=== PATIENT | female | born 1965 | race Caucasian/White ===

== ENCOUNTER → 2017-12-21 20:44 | Outpatient (REF) | payer BC, SELFPAY | LOC: LAB 20:44 | PROVIDERS: Visit Provider Nurse Practitioner Family ==

== ENCOUNTER → 2018-02-08 09:44 | Outpatient (CLI) | payer BC, SELFPAY ==
--- NOTE | 2018-02-08 09:57 | MM_ITS ---
MM Dig screening mamm BI w/CAD CAD Screening COMPARISON: Digital mammograms with CAD 01/27/2015 and 01/21/2014 INDICATION: There is no personal or family history of breast cancer TECHNIQUE: Standard CC and MLO images were obtained. R2 CAD reviewed. FINDINGS: The breasts are composed primarily of fat with minimal scattered fibro-glandular densities in each breast. There is a possible developing asymmetric density outer quadrant of the left breast at 3:00 position. Recommend the patient return for spot compression views in MLO and CC projection and possibly ultrasound as well. There are no suspicious microcalcifications. IMPRESSION: Fiber fatty parenchyma with possible developing asymmetric density left breast BI-RADS Category: 0 Need Additional Imaging Evaluation RECOMMENDED FOLLOW-UP: IMM - IMMEDIATE FOLLOW-UP RECOMMENDED (A letter has been sent to the patient regarding results of the study.)
== END ==
PROVIDERS: Family Provider Internal Medicine; PCP Internal Medicine; Visit Provider Nurse Practitioner Obstetrics & Gynecology
DX: Z12.31 Encounter for screening mammogram for malignant neoplasm of breast (principal)
CPT/HCPCS: 77067

== ENCOUNTER → 2018-03-01 13:35 | Outpatient (CLI) | payer BC, SELFPAY ==
--- NOTE | 2018-03-01 13:37 | MM_ITS ---
MM Dig mamm DX unilat LT CAD, US breast LT complete Ordering Physician: Mark Freeman MD Patient Age: 52 years Female COMPARISON: Bilateral mammogram studies from February 08 2018. January, January: March 2009 outside studies. INDICATION: Further evaluation of left breast density at upper-outer quadrant left breast TECHNIQUE: A series of spot views were obtained today including CC, rolled cc 90 degrees, & MLO. ======== DIAGNOSTIC MAMMOGRAM SPOT VIEWS - LEFT BREAST: In area of density at the upper-outer quadrant left breast been seen on studies dating back to 2008 & 2014. This area as seen today is slightly more apparent on recent study including today's spot views, versus older exams. However It does seem to dissipate on some of the spot views; and we see no corresponding area on ultrasound to further evaluate. Nonetheless I believe this does warrant close follow-up to determine if there is a early change here.,. This area of density Roughly measures 1 cm with somewhat with the vertebral margins. . Recommend follow-up left mammogram and left breast ultrasound 3-4months. Follow-up will be important in this patient. \===== ULTRASOUND LEFT BREAST with axilla survey . No prior studies available for comparison. Entire breast was surveyed including axillary survey. At 3:00 there is a small 8 mm times nearly 5 mm AP hyperechoic focus noted. This may reflect a small lipoma or area of fat necrosis possibly. This could possibly correspond with the density seen on mammography but is not definitive for such. I see no suspicious lesion to correspond with the mammogram density.. This area likely would be be difficult localized stereotactically to mammography given its minimal density and variable character. Since no worrisome focus seen with ultrasound, recommend follow-up. IMPRESSION: Small focal area of density at upper-outer quadrant left breast again noted. Prior studies dating back to 2008 & 2014 have shown similar but slightly less evident density in this same area... This density is only slightly more evident on today's spot views, but it does does dissipate from one spot view to another..No suspicious corresponding area on ultrasound identified only a possible hyperechoic likely focal benign fatty feature at 3:00 on ultrasound. At this point would suggest a follow-up left mammogram and ultrasound in 3-4 months to reevaluate this most likely benign feature BI-RADS Category: 3 likely Benign Finding Short Term Follow-up RECOMMENDED FOLLOW-UP: 3M -4MONTH FOLLOWUP ......... Diagnostic mammogram with ultrasound left breast 3-4 months ....... Follow-up will be important A letter has been sent to the patient regarding results of the study.)
== END ==
PROVIDERS: PCP Internal Medicine; Visit Provider Nurse Practitioner Obstetrics & Gynecology
DX: R92.2 Inconclusive mammogram (principal)
CPT/HCPCS: 76641; 77065

== ENCOUNTER → 2018-05-15 12:40 | Outpatient (CLI) | payer BC, SELFPAY ==
--- NOTE | 2018-05-15 12:44 | MM_ITS ---
MM Dig mamm DX unilat LT CAD, US breast LT complete INDICATION: Follow-up abnormal mammogram and ultrasound ORDERING PHYSICIAN: Mark Freeman MD PATIENT AGE: 52 years COMPARISON: 02/08/18 and 03/01/2018 TECHNIQUE: Standard images performed along with problem-solving views and left breast ultrasound FINDINGS: Asymmetric density is once again noted in the lateral aspect of the left breast does not completely dissipated on the spot compression views was some persistent asymmetric density on the rolled cc views.. Left breast ultrasound: 5 mm area of decreased echogenicity with posterior acoustical shadowing is present at 3:00 and may correspond to the mammographic abnormality and is mildly suspicious on ultrasound. There remains increased echogenicity at 2:00 which may be due to a small lipoma as previously described. IMPRESSION: Persistent asymmetric density in the lateral left breast now with a suspicious ultrasound abnormality noted at this area. Recommend ultrasound-guided mammotome biopsy BI-RADS Category: 4 Suspicious Abnormality-Biopsy Considered RECOMMENDED FOLLOW-UP: BIO - BIOPSY RECOMMENDED (A letter has been sent to the patient regarding results of the study.)
== END ==
PROVIDERS: Family Provider Internal Medicine; PCP Internal Medicine; Visit Provider Nurse Practitioner Obstetrics & Gynecology
DX: R92.2 Inconclusive mammogram (principal)
CPT/HCPCS: 76641; 77065

== ENCOUNTER → 2018-05-23 12:13 | Outpatient (CLI) | payer BC, SELFPAY ==
--- NOTE | 2018-05-23 12:16 | US_ITS ---
FNA w guidance HISTORY: Left breast nodule ITS.REASON: Persistent asymmetric density in the lateral left ORDERING PHYSICIAN: Mark Freeman MD PATIENT AGE: 52 years COMPARISON: 05/15/2018 TECHNIQUE: Following obtaining informed consent, using aseptic technique and local anesthesia with buffered lidocaine, fine-needle aspiration was performed of the nodule of interest using sonographic guidance. 3 passes were made into the nodule with a 21`-gauge needle. Specimen was given to cytology. The patient tolerated the procedure well without evidence of immediate complications and left the ultrasound suite in stable condition. CYTOLOGY:Negative for malignancy, findings suggesting fibrocystic change IMPRESSION: Ultrasound guided biopsy left breast shows benign findings. Recommend 6 month sonographic follow-up
== END ==
PROVIDERS: Family Provider Internal Medicine; PCP Internal Medicine; Visit Provider Nurse Practitioner Obstetrics & Gynecology
DX: N63.20 Unspecified lump in the left breast, unspecified quadrant (principal)
CPT/HCPCS: 10022; 76641

== ENCOUNTER → 2018-11-16 13:21 | Outpatient (CLI) | payer BC, SELFPAY ==
--- NOTE | 2018-11-16 13:39 | MM_ITS ---
MM Dig mamm DX unilat LT CAD, US breast LT complete Ordering Physician: Mark Freeman MD Patient Age: 53 years Female COMPARISON: Left mammogram studies available from May 2018 or February Similar features January 2015. January 2014 INDICATION: Short-term follow-up studies performed today to further evaluate small asymmetric area of density at the lateral, left left breast ========= DIAGNOSTIC LEFT MAMMOGRAM MLO and cc both views left breast. Minimal residual fibroglandular elements bilaterally . Lower-density breast overall. With moderate fatty replacement. Left breast again see the small asymmetric area of density at the lateral left breast. This remain stable since prior 2018 study.-It is actually slight less dense and than seen on the the February 2018 study left breast. Note interval FNA biopsy May 23, 2018 of this area However would again recommend bilateral follow-up to resume annual schedule 6 months to further confirm stability. ======= ULTRASOUND LEFT BREAST including axillary survey Ultrasound survey entire breast included additional axillary survey . No areas of concern. No solid or cystic mass. No architectural irregularity is appreciable. Axillary survey unremarkable I would note the patient had an FNA aspiration May 23, 2018 of the small vague hypoechoic nodule seen on ultrasound at 3 o'clock position .- The results were from that FNA negative for malignancy, revealed benign apocrine cells suggestive of fibrocystic change . The technologist identified no persistent nodule in this area today. IMPRESSION: 1.. Left mammogram again shows stable small area of focal density at the lateral left breast no change latter 2018 . ( It is actually very slight less dense & very slightly less evident than on February & May 2018 study,) However warrants six-month follow-up to better confirm stability with overall appearance. 2. Left breast ultrasound was negative & unremarkable today. . No areas of concern to correlate on today's study BI-RADS Category: 3 Probably Benign Finding . Short Term Follow-u To resume annual schedule RECOMMENDED FOLLOW-UP: 6M 6 MONTH FOLLOW-UP . resume annual bilateral mammogram schedule; with bilateral mammogram in 6 months May 2019 . Ultrasound left breast at that time suggested as well. A letter has been sent to the patient regarding results of the study.) .
== END ==
PROVIDERS: PCP Internal Medicine; Visit Provider Nurse Practitioner Obstetrics & Gynecology
DX: R92.8 Other abnormal and inconclusive findings on diagnostic imaging of breast (principal)
CPT/HCPCS: 76641; 77065

== ENCOUNTER → 2018-12-18 16:02 | Outpatient (CLI) | payer BC, SELFPAY ==
--- NOTE | 2018-12-18 16:09 | XR_ITS ---
XR hand RT min 3V HISTORY: ITS.REASON: PAIN/SWELLING IN RT 2ND 3RD,AND 4TH MCP JOINTS ORDERING PHYSICIAN: Baljinder Meier PATIENT AGE: 53 years COMPARISON: None FINDINGS: No fracture or dislocation. No lytic or blastic change. There is normal mineralization.. The joint spaces are well-preserved. No significant degenerative/arthritic changes. No erosive changes evident.. IMPRESSION: Negative, no acute finding
== END ==
PROVIDERS: PCP Internal Medicine; Visit Provider Internal Medicine
DX: M79.641 Pain in right hand (principal); M25.541 Pain in joints of right hand
CPT/HCPCS: 73130

== ENCOUNTER → 2019-05-23 08:22 | Outpatient (CLI) | payer BC, SELFPAY ==
--- NOTE | 2019-05-23 08:24 | MM_ITS ---
PROCEDURE: MM DIG SCREENING MAMM BI W/CAD Patient Age:53Y CLINICAL INDICATION: Routine Screening Mammogram 53-year-old but taking estrogen. Previous FNA left breast hypoechoic area 3 o'clock 05/23/2018 . Noncontributory family history. COMPARISON: DIG MAMMO BILAT SCREENING from 04/06/2009 DIG MAMMO BILAT SCREENING from 05/20/2010 [facility] DIGITAL MAMM-SCREEN BILATERAL from 08/24/2012 CADSC CAD MAMMOGRAPHY SCREENING from 01/21/2014 [facility] DIG MAMM-SCREEN CALIN from 01/27/2015 [facility] MM Dig screening mamm BI w/CAD from 02/08/2018 DXLT MM Dig mamm DX unilat LT CAD from 03/01/2018 BREASTLT US breast LT complete from 03/01/2018 DXLT MM Dig mamm DX unilat LT CAD from 05/15/2018 BREASTLT US breast LT complete from 05/15/2018 FNAWGUS FNA w guidance from 05/23/2018 DXLT MM Dig mamm DX unilat LT CAD from 11/16/2018 BREASTLT US breast LT complete from 11/16/2018 TECHNIQUE: Standard CC and MLO images were obtained. R2 CAD reviewed. Note additional CC view and MLO view performed FINDINGS: Minimal residual fibroglandular elements; overall low-density breast with generalized fatty replacement. Left breast the patient again demonstrates a small area of density at the lateral left breast which a similar size, stable since 2018. Of but less dense on 2015 mammogram. . Left breast: This focal irregular density laterally breast appears again seen and appears similar size density and appearance since 2018 but looking back this at the present since at least 2014 but had slowly developed on studies prior to that dating back to 2012,. However there was a a previous FNA in this area on 05/23/2018 to address a corresponding hypoechoic areas seen on 05/15/2018 ultrasound. This FNA was found to be negative (benign apical metaplasia) which would seem to match. Given this and stability of this density since since since 2018, follow-up would be suggested , However would recommend a 6-8 month follow-up with ultrasound additionally confirm stability and so as to again evaluate on ultrasound. Right breast: No new areas of concern bilateral follow-up 1 year recommended IMPRESSION: Left breast: Stable appearing focal density lateral left breast-shows no appreciable change since 2018. A prior 05/23/2018.ultrasound-guided FNA here was benign. However this patient on estrogen and note this density has slowly developed and slowly progressed on studies over several years prior to 2018. (Likely reflecting estrogen effect), thus to be be cautious would suggest a 6-8 month follow-up with left breast ultrasound and left mammogram. Right breast. Stable right breast. . No new areas of concern on the right. Follow-up 1 year recommended on right BI-RAD Category: 3 Probably Benign Finding Short Term Follow-up left breast FOLLOW-UP: Six-month follow-up left breast ultrasound and mammogram recommended (A letter has been sent to the patient regarding results of the study.) Low the Dictated by: Lawrence Alcala MD 05/24/2019 10:04 Electronically signed by Lawrence Alcala MD in [place] 05/28/2019 11:08
== END ==
PROVIDERS: PCP Internal Medicine; Visit Provider Nurse Practitioner Obstetrics & Gynecology
DX: Z12.31 Encounter for screening mammogram for malignant neoplasm of breast (principal)
CPT/HCPCS: 77067

== ENCOUNTER → 2019-11-18 12:42 | Outpatient (CLI) | payer BC, SELFPAY ==
--- NOTE | 2019-11-18 12:42 | MM_ITS ---
PROCEDURE: MM DIG MAMM DX UNILAT LT CAD Digital Breast Tomosynthesis Included CLINICAL INDICATION: abnormal xmg Follow-up abnormal mammogram COMPARISON: [facility] DIGITAL MAMM-SCREEN BILATERAL from 08/24/2012 [facility] DIG MAMM-SCREEN CALIN from 01/27/2015 DXLT MM Dig mamm DX unilat LT CAD from 05/15/2018 BREASTLT US breast LT complete from 11/16/2018 DXLT MM Dig mamm DX unilat LT CAD from 11/16/2018 MM DIG SCREENING MAMM BI W/CAD from 05/23/2019 US BREAST LT COMPLETE from 11/18/2019 TECHNIQUE: Standard CC and MLO images and 3D Tomosynthesis was obtained. R2 CAD reviewed. FINDINGS: There is average fibroglandular tissue. No malignant appearing mass or malignant-appearing microcalcification. There is a stable asymmetric density in the upper outer left breast. A benign-appearing nodular opacity measuring 5 mm is present in the lower outer left breast. This may represent a cyst as noted on the ultrasound. Left breast ultrasound: There is a 7 x 3 x 5 mm cyst at 4 o'clock which may correspond to the mammographic abnormality. No malignant appearing mass evident. Recommend continued screening mammogram of both breast and May 2020 IMPRESSION: BI-RAD Category: 2 Benign Finding(s) FOLLOW-UP: 6M 6Month Follow-up (A letter has been sent to the patient regarding results of the study.) Dictated by: Osmin Mccain MD 11/25/2019 09:48 Electronically signed by Osmin Mccain MD in [place] 11/25/2019 09:48
== END ==
PROVIDERS: PCP Internal Medicine; Visit Provider Nurse Practitioner Obstetrics & Gynecology
DX: R92.8 Other abnormal and inconclusive findings on diagnostic imaging of breast (principal)
CPT/HCPCS: 76641; 77061; 77065; G0279

== ENCOUNTER → 2019-12-26 08:27 | Outpatient (CLI) | payer BC, SELFPAY ==
[2019-12-26 09:03] LABS: Basophils % 0.2 % (0.1-2.0); Eosinophils # 0.1 K/mm3 (0.0-0.4); Eosinophils % 1.8 % (0.1-12.0); Hematocrit 41.3 % (37.0-47.0); Hemoglobin 13.5 g/dL (12.2-16.2); Lymphocytes # 1.5 K/mm3 (0.7-4.5); Lymphocytes % 24.8 % (10-50); Mean Corpuscular HGB Conc 32.6 g/dL (31.8-35.4); Mean Corpuscular Hemoglobin 29.6 pg (27.0-31.2); Mean Corpuscular Volume 90.6 fl (81-99); Mean Platelet Volume 7.4 fl (7.4-10.4); Monocytes # 0.4 K/mm3 (0.1-1.0); Neutrophils # 3.9 K/mm3 (1.8-7.8); Neutrophils % 66.2 % (37.0-80.0); Platelet Count 295 K/mm3 (142-424); Red Blood Count 4.56 M/mm3 (4.20-5.40); Red Cell Distribution Width 12.9 % (11.5-17.5); White Blood Count 5.9 K/mm3 (4.8-10.8)
[2019-12-26 10:03] LABS: Erythrocyte Sedimentation Rate 10 mm/hr (0-30)
[2019-12-26 10:08] LABS: Alanine Aminotransferase 13 U/L (12-78); Albumin Level 4.5 g/dl (3.5-5.0); Albumin/Globulin Ratio 1.8 (1.1-1.8); Alkaline Phosphatase 50 U/L (38-126); Anion Gap 8.7 mEq/L (5-15); Aspartate Amino Transferase 21 U/L (14-36); Bilirubin,Total 0.4 mg/dl (0.2-1.3); Blood Urea Nitrogen 13 mg/dl (7-17); Calcium 9.4 mg/dl (8.4-10.2); Carbon Dioxide 29 mmol/L (22.0-30.0); Chloride 101 mmol/L (98-107); Estimated Glomerular Filt Rate 128 ml/min (>60); GFR (African American) 155 ML/MIN (>60); Globulin 2.5 g/dL (1.3-3.2); Glucose 78 mg/dl (74-100); Potassium 3.7 mmoL/L (3.5-5.1); Sodium 135 mmol/L (136-145)
[2019-12-26 10:14] LABS: C-Reactive Protein 0.6 mg/L (0-4)
== END ==
PROVIDERS: Visit Provider Internal Medicine Rheumatology
DX: M25.50 Pain in unspecified joint (principal); R76.8 Other specified abnormal immunological findings in serum
CPT/HCPCS: 36415; 80053; 85025; 85651; 86140

== ENCOUNTER → 2020-05-19 10:01 | Outpatient (CLI) | payer BC, SELFPAY ==
--- NOTE | 2020-05-19 10:09 | MM_ITS ---
PROCEDURE: MM DIG SCREENING MAMM BI W/CAD Referring Doctor: Mark Freeman Patient Age:54Y CLINICAL INDICATION: SCREENING takes estrogen.. No new complaints. Noncontributory family history. Previous percutaneous biopsy left breast I believe May 2018 COMPARISON: MG DMSB DIGITAL MAMM-SCREEN BILATERAL from 08/24/2012 MG CADSC CAD MAMMOGRAPHY SCREENING from 01/21/2014 MG DMSB DIG MAMM-SCREEN CALIN from 01/27/2015 MG [facility] MM Dig screening mamm BI w/CAD from 02/08/2018 MG DXLT MM Dig mamm DX unilat LT CAD from 03/01/2018 US BREASTLT US breast LT complete from 03/01/2018 MG DXLT MM Dig mamm DX unilat LT CAD from 05/15/2018 US BREASTLT US breast LT complete from 05/15/2018 US FNAWGUS FNA w guidance from 05/23/2018 MG DXLT MM Dig mamm DX unilat LT CAD from 11/16/2018 US BREASTLT US breast LT complete from 11/16/2018 MG MM DIG SCREENING MAMM BI W/CAD from 05/23/2019 MG MM DIG MAMM DX UNILAT LT CAD from 11/18/2019 US US BREAST LT COMPLETE from 11/18/2019 TECHNIQUE: Standard CC and MLO images were obtained. R2 CAD reviewed. Bilateral digital breast tomosynthesis included. FINDINGS: Minimal residual fibroglandular elements bilaterally. Left breast. Stable small focal density at the lateral left breast has been present since least 2017 and even present back on 2014 studies. It there was a ultrasound-guided biopsy of this area which was benign revealing apical metaplasia and fibrocystic changes but May 2018 changed appreciably during these this time. But warrants close continued follow-up but bilateral mammogram 1 year be adequate at this point given its stability since 2018. Right breast no new areas of significant concern. Suspect ductal prominence accounts for the minimal nodularity retroareolar region MLO view stable, as are small areas of density at the lateral breast on CC view these areas adequate the 2 stable when compared back multiple previous 2018, 2017, 2015 mammogram IMPRESSION: No significant appearing changes since studies dating back to 2018. Left breast.- Stable small area of nodularity lateral left breast unchanged since it was aspirated or biopsied in 2018. The stable mild asymmetry but comparison is made to numerous previous studies-no significant new findings Bilateral follow-up 1 year would be recommended-and should be encouraged/emphasized to confirm ongoing stability of areas noted above BI-RAD Category: 2 Benign Finding(s) FOLLOW-UP: 1YR 1 Year Follow-up (A letter has been sent to the patient regarding results of the study.) Dictated by: Lawrence Alcala MD 05/22/2020 08:28 Lawrence Alcala MD in [place] 05/22/2020 08:28
== END ==
PROVIDERS: PCP Internal Medicine; Visit Provider Nurse Practitioner Obstetrics & Gynecology
DX: Z12.31 Encounter for screening mammogram for malignant neoplasm of breast (principal)
CPT/HCPCS: 77063; 77067

== ENCOUNTER → 2020-09-30 11:39 | Outpatient (CLI) | payer BC, SELFPAY ==
[2020-09-30 12:29] LABS: Chloride 105 mmol/L (98-107); Erythrocyte Sedimentation Rate 5 mm/hr (0-30); Potassium 4.4 mmoL/L (3.5-5.1); Sodium 140 mmol/L (136-145)
[2020-09-30 12:32] LABS: Alanine Aminotransferase 20 U/L (12-78); Albumin Level 4.9 g/dl (3.5-5.0); Albumin/Globulin Ratio 1.7 (1.1-1.8); Alkaline Phosphatase 67 U/L (38-126); Anion Gap 12.4 mEq/L (5-15); Aspartate Amino Transferase 31 U/L (14-36); Bilirubin,Total 0.8 mg/dl (0.2-1.3); Blood Urea Nitrogen 18 mg/dl (7-17); Carbon Dioxide 27 mmol/L (22.0-30.0); Cholesterol 244 mg/dl (140-200); Estimated Glomerular Filt Rate 103 ml/min (>60); GFR (African American) 125 ML/MIN (>60); Globulin 2.9 g/dL (1.3-3.2); Total Protein,Serum 7.8 g/dl (6.3-8.2); Triglycerides 128 mg/dl (30-150); VLDL Cholesterol 26 mg/dL (0-40)
[2020-09-30 12:33] LABS: Calcium 9.9 mg/dl (8.4-10.2); Chol/HDL Ratio 3.5 (1-3.5); Glucose 98 mg/dl (74-100); HDL Cholesterol 70 mg/dl (40-60)
[2020-09-30 12:39] LABS: C-Reactive Protein 2.3 mg/L (0-4)
[2020-09-30 12:44] LABS: Direct LDL Cholesterol 139.84 mg/dL (100-129)
[2020-09-30 13:03] LABS: Thyroid Stimulating Hormone 0.61 uIU/mL (0.465-4.68)
[2020-10-01 09:20] LABS: Basophils % 0.6 % (0.1-2.0); Eosinophils # 0.1 K/mm3 (0.0-0.4); Hematocrit 46.1 % (37.0-47.0); Hemoglobin 14.9 g/dL (12.2-16.2); Lymphocytes # 1.5 K/mm3 (0.7-4.5); Lymphocytes % 21.8 % (10-50); Mean Corpuscular HGB Conc 32.3 g/dL (31.8-35.4); Mean Corpuscular Hemoglobin 30.6 pg (27.0-31.2); Mean Corpuscular Volume 94.7 fl (81-99); Mean Platelet Volume 8.4 fl (7.4-10.4); Monocytes # 0.4 K/mm3 (0.1-1.0); Monocytes % 6.4 % (1.7-9.3); Neutrophils # 4.7 K/mm3 (1.8-7.8); Neutrophils % 70.2 % (37.0-80.0); Platelet Count 291 K/mm3 (142-424); Red Blood Count 4.87 M/mm3 (4.20-5.40); Red Cell Distribution Width 13.5 % (11.5-17.5); White Blood Count 6.7 K/mm3 (4.8-10.8)
== END ==
PROVIDERS: Visit Provider Internal Medicine
DX: M15.0 Primary generalized (osteo)arthritis (principal); K58.1 Irritable bowel syndrome with constipation; E78.5 Hyperlipidemia, unspecified; J30.9 Allergic rhinitis, unspecified; D64.9 Anemia, unspecified; E66.8 Other obesity; K21.9 Gastro-esophageal reflux disease without esophagitis
CPT/HCPCS: 36415; 80053; 80061; 84443; 85025; 85651; 86140

== ENCOUNTER → 2021-04-30 15:57 | Outpatient (CLI) | payer BC, SELFPAY | PROVIDERS: Visit Provider Nurse Practitioner | DX: Z20.822 Contact with and (suspected) exposure to COVID-19 (principal) | CPT/HCPCS: C9803; U0003; U0005 ==

== ENCOUNTER → 2021-05-28 15:41 | Outpatient (CLI) | payer BC, SELFPAY ==
--- NOTE | 2021-05-28 15:41 | MM_ITS ---
PROCEDURE INFORMATION: Exam: MG Bilateral Screening 3D Mammography Exam date and time: 05/28/2021 3:41 PM Age: 55 years old Clinical indication: screening mammogram TECHNIQUE: Imaging protocol: Bilateral screening tomosynthesis and 2D mammography including computer-aided detection (CAD) when performed. COMPARISON: 1. MG MM DIG SCREENING MAMM BI W/CAD 05/19/2020 10:11 AM 2. MG MM DIG MAMM DX UNILAT LT CAD 11/18/2019 1:10 PM 3. MG MM DIG SCREENING MAMM BI W/CAD 05/23/2019 8:36 AM 4. MG DXLT MM Dig mamm DX unilat LT CAD 11/16/2018 1:57 PM FINDINGS: MAMMOGRAPHY: Breast composition: There are scattered areas of fibroglandular density. Mass: AStable benign-appearing subcentimeter nodules are present in the bilateral breasts. No new or morphologically suspicious nodule has developed to suggest malignancy. Architectural distortion: No new or suspicious architectural distortion. Calcifications: No new or suspicious calcifications are present Asymmetric density: No new or suspicious asymmetric density is present Skin thickening: None. Axillary adenopathy: None. IMPRESSION: No mammographic evidence of malignancy. Recommend annual screening mammography unless otherwise clinically indicated. ASSESSMENT: BI-RADS category 2: Benign
== END ==
PROVIDERS: PCP Internal Medicine; Visit Provider Nurse Practitioner Obstetrics & Gynecology
DX: Z12.31 Encounter for screening mammogram for malignant neoplasm of breast (principal)
CPT/HCPCS: 77063; 77067

== ENCOUNTER → 2021-08-23 12:50 | Outpatient (CLI) | payer BC, SELFPAY ==
--- NOTE | 2021-08-23 12:56 | XR_ITS ---
FINAL REPORT CLINICAL HISTORY: pain, bilateral foot pain FINDINGS: LEFT FOOT Three views of the left foot demonstrate no acute fracture or dislocation. There are mild degenerative changes. The soft tissues are unremarkable. IMPRESSION: Mild degenerative change. Reviewed, Interpreted and Dictated by Carson Parada III, MD Transcribed by Ariadna Barros Authenticated by Carson Parada III, MD on 08/23/2021 02:46:[address] [facility]
--- NOTE | 2021-08-23 12:56 | XR_ITS ---
FINAL REPORT CLINICAL HISTORY: pain, bilateral foot pain FINDINGS: RIGHT FOOT Three views of the right foot demonstrate no dislocation. There are postoperative changes of the 1st metatarsal. There is a presumed chronic fracture of the 5th metatarsal. There are mild degenerative changes. The soft tissues are unremarkable. IMPRESSION: Mild degenerative changes. Presumed chronic fracture of the 5th metatarsal. Reviewed, Interpreted and Dictated by Carson Parada III, MD Transcribed by Ariadna Barros Authenticated by Carson Parada III, MD on 08/23/2021 02:46:38 PM [facility]
== END ==
PROVIDERS: PCP Internal Medicine; Visit Provider Podiatrist
DX: M79.672 Pain in left foot (principal); M79.671 Pain in right foot
CPT/HCPCS: 73630

== ENCOUNTER → 2021-08-31 15:25 | Outpatient (CLI) | payer BC, SELFPAY ==
[2021-08-31 17:26] LABS: Blood Urea Nitrogen 17 mg/dl (7-17); Estimated Glomerular Filt Rate 103 ml/min (>60); GFR (African American) 125 ML/MIN (>60)
== END ==
PROVIDERS: PCP Internal Medicine; Visit Provider Podiatrist
DX: Z01.812 Encounter for preprocedural laboratory examination (principal)
CPT/HCPCS: 36415; 82565; 84520

== ENCOUNTER → 2021-09-03 08:32 | Outpatient (CLI) | payer BC, SELFPAY ==
--- NOTE | 2021-09-03 08:55 | MR_ITS ---
FINAL REPORT CLINICAL HISTORY: LEFT FOOT PAIN, STRESS FX 19ML PROHANCE LOT:[id number] EXP: FINDINGS: Multiplanar MR imaging of the left foot was performed with and without contrast. Mild degenerative changes are seen involving the midfoot. There is mild bone marrow edema in the middle cuneiform and proximal second metatarsal, favor reactive. There is a small osteochondral lesion in the distal mid cuneiform. No well-defined fracture is identified. There is a mass in the proximal first proximal phalanx measuring 8 mm, favor a cyst or enchondroma. There is no abnormal contrast enhancement. IMPRESSION: Degenerative changes without a well-defined fracture. No evidence of abnormal contrast enhancement. Reviewed, Interpreted and Dictated by Carson Parada III, MD Transcribed by Tara Rangel Authenticated by Carson Parada III, MD on 09/03/2021 10:59:[address] [facility]
== END ==
PROVIDERS: PCP Internal Medicine; Visit Provider Podiatrist
DX: M79.672 Pain in left foot (principal); M84.375A Stress fracture, left foot, initial encounter for fracture
CPT/HCPCS: 73720; A9576

== ENCOUNTER → 2021-09-07 16:03 | Outpatient (CLI) | payer BC, SELFPAY | PROVIDERS: PCP Internal Medicine; Visit Provider Nurse Practitioner | DX: U07.1 COVID-19 (principal) | CPT/HCPCS: C9803; U0003; U0005 ==

== ENCOUNTER → 2021-09-23 09:18 | Outpatient (CLI) | payer BC, SELFPAY ==
--- NOTE | 2021-09-23 09:18 | XR_ITS ---
FINAL REPORT TECHNIQUE: Bone mineral density was calculated of the lumbar spine and hip. CLINICAL HISTORY: . screening, hx fracture, upcoming bunion repair FINDINGS: Using L1-4, the bone mineral density of the spine is 1.107 g/cm2, corresponding to T-score of 0.5. Using the left hip, the bone mineral density of the femoral neck is 0.830 g/cm2, corresponding to a T-score of -0.2. IMPRESSION: Normal bone mineral density of the lumbar spine and left hip. Reviewed, Interpreted and Dictated by Carson Parada III, MD Transcribed by Ariadna Barros Authenticated by Carson Parada III, MD on 09/23/2021 11:25:[address] [facility]
[2021-09-23 10:36] LABS: Basophils # 0.1 K/mm3 (0-0.2); Basophils % 1.2 % (0.1-2.0); Eosinophils # 0.1 K/mm3 (0.0-0.4); Eosinophils % 1.1 % (0.1-12.0); Hematocrit 42.1 % (37.0-47.0); Hemoglobin 13.9 g/dL (12.2-16.2); Lymphocytes # 1.6 K/mm3 (0.7-4.5); Lymphocytes % 25.3 % (10-50); Mean Corpuscular HGB Conc 32.9 g/dL (31.8-35.4); Mean Corpuscular Hemoglobin 30.5 pg (27.0-31.2); Mean Corpuscular Volume 92.7 fl (81-99); Mean Platelet Volume 7.7 fl (7.4-10.4); Monocytes # 0.4 K/mm3 (0.1-1.0); Monocytes % 5.3 % (1.7-9.3); Neutrophils # 4.4 K/mm3 (1.8-7.8); Neutrophils % 67.2 % (37.0-80.0); Platelet Count 321 K/mm3 (142-424); Red Blood Count 4.55 M/mm3 (4.20-5.40); Red Cell Distribution Width 13.1 % (11.5-17.5); White Blood Count 6.5 K/mm3 (4.8-10.8)
[2021-09-23 12:26] LABS: Erythrocyte Sedimentation Rate 11 mm/hr (0-30)
[2021-09-23 14:52] LABS: Alanine Aminotransferase 22 U/L (12-78); Albumin Level 4.6 g/dl (3.5-5.0); Albumin/Globulin Ratio 2.1 (1.1-1.8); Alkaline Phosphatase 57 U/L (38-126); Anion Gap 11.3 mEq/L (5-15); Aspartate Amino Transferase 31 U/L (14-36); Bilirubin,Total 0.9 mg/dl (0.2-1.3); Blood Urea Nitrogen 17 mg/dl (7-17); Calcium 8.8 mg/dl (8.4-10.2); Carbon Dioxide 27 mmol/L (22.0-30.0); Chloride 104 mmol/L (98-107); Estimated Glomerular Filt Rate 127 ml/min (>60); GFR (African American) 154 ML/MIN (>60); Globulin 2.2 g/dL (1.3-3.2); Glucose 95 mg/dl (74-100); Potassium 4.3 mmoL/L (3.5-5.1); Sodium 138 mmol/L (136-145); Total Protein,Serum 6.8 g/dl (6.3-8.2)
[2021-09-23 15:00] LABS: C-Reactive Protein 1.7 mg/L (0-4)
[2021-09-23 15:02] LABS: Intact Parathyroid Hormone 67.7 pg/mL (7.5-53.5)
[2021-09-30 19:45] LABS: 1,25 Dihydroxy Vitamin D 60 pg/mL (.); 1,25-Dihydroxy, Vitamin D-2 <10 pg/mL (.); 1,25-Dihydroxy, Vitamin D-3 56 pg/mL (.)
== END ==
PROVIDERS: PCP Internal Medicine; Visit Provider Podiatrist
DX: M85.89 Other specified disorders of bone density and structure, multiple sites (principal); L02.619 Cutaneous abscess of unspecified foot; L03.119 Cellulitis of unspecified part of limb; Z98.890 Other specified postprocedural states
CPT/HCPCS: 77080; 80053; 82652; 83970; 85025; 85651; 86140

== ENCOUNTER 2021-10-21 15:48 | Emergency (ER) | payer BC, SELFPAY ==
[2021-10-21 15:55] VITALS: BP 142/63; PULSE 97; RESP 20; TEMP 36.7; O2SAT 97; BMI 30.5
--- NOTE | 2021-10-21 16:08 | HMH.EDUTC ---
[facility] [place] Clinical Impression: Strep throat Disposition: Home, Self-Care Condition on Discharge: Good Instructions: DI for Strep Throat, Strep Throat, Azithromycin Additional Instructions: *Monitor Temp, Over the counter Motrin or Tylenol as directed/as needed Tylenol every 4 hours and Motrin every 6 hours (as long as your family doctor has told you that you can take it) for fever or pain. and straight to ER if unable to lower temp less than 101.0 after medication given *Warm salt water gargles may help to soothe the throat *Throat Lozenges *Warm fluids like tea with honey may help to soothe the throat *Sleep elevated *Humidifier/Vaporizer *If you did not take Penicillin shot or was unable to, start taking antibiotic immediately and make sure that you take it for the FULL length of time although you should start to feel better in 24-48 hours *change toothbrush and toothpaste 24-48 hours after starting to take antibiotics so you do not reinfect yourself Monitor Temp. Tylenol and/or Ibuprofen as needed. ER if fever is no less than 101 despite alternating Tylenol and Ibuprofen * Encourage fluids, water, Gatorade, powerade, pedialyte if /toddler/or child *Cold fluids, popsicles and ice cream may feel good on his throat Follow up IMMEDIATELY for new or worsening symptoms or no Noticeable improvement over the next 48-72 hours. 911 for difficulty breathing or swallowing Prescriptions: Azithromycin [Z-Joseph 250mg Tab] 250 mg PO DIRECTED #6 tab Transmission Status: Pending to [id number] Referrals: Baljinder Meier [Primary Care Provider] - As needed Time of Disposition: 16:15 Medical Decision Making - Forrest Inquiry Pt receiving controlled substance: No Forrest was queried for this patient: No Vital Signs: 10/21/21 15:55 Temperature 98.1 F Temperature Source Oral Pulse Rate [Right Brachial] 97 H Respiratory Rate 20 Blood Pressure [Right Arm] 142/63 H Blood Pressure Mean [Right Arm] 89 Blood Pressure Source [Right Arm] Automatic Cuff Blood Pressure Position [Right Arm] Sitting 02 Sat by Pulse Oximetry 97 Oxygen Delivery Method Room Air - Lab Data Lab results reviewed: Yes: I reviewed the patient's lab results. [facility] [place] - General Stated complaint: sore throat Time Seen by Provider: 10/21/21 16:08 Mode of Arrival: Ambulatory Source of Information: Patient Limitations: No Limitations Description of Symptoms (Recalled from Triage Doc. 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 States that today she was still feeling bad and having scratchy throat so she came in to get checked out - Related Data Home Medications Medication Instructions Recorded Confirmed fluticasone propionate 50 2 spray INTRANASAL DAILY 10/15/20 10/04/21 mcg/actuation nasal spray,suspension montelukast 10 mg tablet 10 mg PO DAILY 10/15/20 10/04/21 meloxicam 7.5 mg tablet 7.5 mg PO DAILY 08/23/21 10/04/21 omeprazole 20 mg capsule,delayed 20 mg PO DAILY 08/23/21 10/04/21 release duloxetine 30 mg capsule,delayed 30 mg PO DAILY 10/04/21 10/04/21 release prucalopride 2 mg tablet 2 mg PO tab 10/04/21 10/04/21 Previous Rx's Medication Instructions Recorded estradiol 0.1 mg/24 hr semiweekly See Rx Instructions .ROUTE 11/23/20 transdermal patch .COMPLEX #24 patch Azithromycin [Z-Joseph 250mg Tab] 250 mg PO DIRECTED #6 tab 10/21/21 Allergies Allergy/AdvReac Type Severity Reaction Status Date / Time acetaminophen [From [facility]] Allergy Mild Verified 10/04/21 08:06 hydrocodone [From [facility]] Allergy Mild Verified 10/04/21 08:06 latex [L
[2021-10-21 16:10] LABS: UTC Strep Screen (Rapid) Positive (Negative)
[2021-10-21 16:18] VITALS: BP 142/63; PULSE 97; RESP 20; TEMP 36.7; O2SAT 97
== END 2021-10-21 16:22 | disposition home or self-care (01) ==
PROVIDERS: Emergency Provider Nurse Practitioner; PCP Internal Medicine
DX: J02.0 Streptococcal pharyngitis (principal); B95.0 Streptococcus, group A, as the cause of diseases classified elsewhere; K21.9 Gastro-esophageal reflux disease without esophagitis; F41.9 Anxiety disorder, unspecified; Z79.51 Long term (current) use of inhaled steroids; Z79.890 Hormone replacement therapy; Z79.899 Other long term (current) drug therapy; Z88.0 Allergy status to penicillin; Z88.5 Allergy status to narcotic agent; Z88.6 Allergy status to analgesic agent; Z91.040 Latex allergy status; Z82.49 Family history of ischemic heart disease and other diseases of the circulatory system; Z83.3 Family history of diabetes mellitus; Z80.9 Family history of malignant neoplasm, unspecified
CPT/HCPCS: 87880; 99213; G0463

== ENCOUNTER → 2021-12-28 09:07 | Outpatient (CLI) | payer BC, SELFPAY ==
--- NOTE | 2021-12-28 09:14 | XR_ITS ---
FINAL REPORT CLINICAL HISTORY: preop testing - foot surgery/bunionectomy FINDINGS: Two views of the chest were obtained. The heart size and pulmonary vascularity are within normal limits. The mediastinum is normal. No acute pulmonary abnormality is identified. There is no pneumothorax. The bony thorax is intact. IMPRESSION: No active cardiopulmonary disease. Reviewed, Interpreted and Dictated by Carson Parada III, MD Transcribed by Robyn Roland Authenticated by Carson Parada III, MD on 12/28/2021 10:31:29 AM [facility]
--- NOTE | 2021-12-28 09:48 | ECG_ITS ---
APPROVED REPORT Exam: Resting ECG HR:80 bpm ECG Measurements Heart Rate 80 AXES CA 132 P 59 QRSd 103 QRS 66 QT 370 T 37 QTc 405 Conclusion SINUS RHYTHM NORMAL ECG UNCONFIRMED REPORT Electronically signed by : Rogerio Correa MD 12/28/2021 21:24:16
[2021-12-28 10:40] LABS: Basophils # 0.1 K/mm3 (0-0.2); Basophils % 1.2 % (0.1-2.0); Eosinophils # 0.1 K/mm3 (0.0-0.4); Hematocrit 44.2 % (37.0-47.0); Hemoglobin 14.3 g/dL (12.2-16.2); Lymphocytes # 1.3 K/mm3 (0.7-4.5); Lymphocytes % 21.3 % (10-50); Mean Corpuscular HGB Conc 32.3 g/dL (31.8-35.4); Mean Corpuscular Hemoglobin 30.6 pg (27.0-31.2); Mean Corpuscular Volume 94.7 fl (81-99); Mean Platelet Volume 8.3 fl (7.4-10.4); Monocytes # 0.3 K/mm3 (0.1-1.0); Monocytes % 5.1 % (1.7-9.3); Neutrophils # 4.3 K/mm3 (1.8-7.8); Neutrophils % 71.4 % (37.0-80.0); Platelet Count 272 K/mm3 (142-424); Red Blood Count 4.66 M/mm3 (4.20-5.40); Red Cell Distribution Width 13.2 % (11.5-17.5)
[2021-12-28 11:30] LABS: Alanine Aminotransferase 16 U/L (12-78); Albumin Level 4.4 g/dl (3.5-5.0); Albumin/Globulin Ratio 1.8 (1.1-1.8); Alkaline Phosphatase 74 U/L (38-126); Aspartate Amino Transferase 30 U/L (14-36); Bilirubin,Total 0.7 mg/dl (0.2-1.3); Blood Urea Nitrogen 9 mg/dl (7-17); Calcium 9.1 mg/dl (8.4-10.2); Carbon Dioxide 24 mmol/L (22.0-30.0); Chloride 106 mmol/L (98-107); Estimated Glomerular Filt Rate 127 ml/min (>60); GFR (African American) 154 ML/MIN (>60); Globulin 2.4 g/dL (1.3-3.2); Glucose 99 mg/dl (74-100); Sodium 139 mmol/L (136-145); Total Protein,Serum 6.8 g/dl (6.3-8.2)
[2021-12-28 11:45] LABS: 25-OH Vitamin D, Total 29.3 ng/mL (30-100)
== END ==
PROVIDERS: PCP Internal Medicine; Visit Provider Podiatrist
DX: Z01.818 Encounter for other preprocedural examination (principal); Z11.52 Encounter for screening for COVID-19
CPT/HCPCS: 36415; 71046; 80053; 82306; 85025; 93005; C9803; U0003; U0005

== ENCOUNTER → 2022-01-10 09:11 | Outpatient (CLI) | payer BC, SELFPAY | PROVIDERS: PCP Internal Medicine; Visit Provider Podiatrist | DX: Z01.812 Encounter for preprocedural laboratory examination (principal); Z20.822 Contact with and (suspected) exposure to COVID-19 ==

== ENCOUNTER → 2022-01-11 10:13 | Outpatient (CLI) | payer BC, SELFPAY | PROVIDERS: Visit Provider Podiatrist | DX: Z01.812 Encounter for preprocedural laboratory examination (principal); Z20.822 Contact with and (suspected) exposure to COVID-19 | CPT/HCPCS: C9803; U0003; U0005 ==

== ENCOUNTER 2022-01-12 09:05 | Day surgery (SDC) | payer BC, SELFPAY ==
[2022-01-11 12:18] VITALS: BMI 29.2
[2022-01-12] VITALS (10 sets, daily range): BP systolic 97–121; BP diastolic 53–92; PULSE 87–98; RESP 15–18; TEMP 36.3–43; O2SAT 93–100
--- NOTE | 2022-01-12 10:50 | HMH.OPNOTE ---
Date of procedure: 01/12/22 Pre-op Diagnosis:: 1. Acquired hallux valgus of left foot 2. Left foot pain 3. Acquired hammertoe of left foot 4. Metatarsalgia of left foot 5. Bone cyst of foot 6. History left metatarsal stress fracture 7. Parathyroid hormone excess 8. Overweight (BMI 25.0-29.9) Post-op Diagnosis:: Same Procedure performed:: 1. Left foot bunionectomy (distal metatarsal osteotomy) 2. Left 2nd metatarsal osteotomy 3. Left HT repair with MPJ/IP capsulotomy 4. Left soft tissue reconstruction angular toe deformity 5. Left foot bone biospy 6. Left foot curettage and bone grafting cyst 7. Application of graft (amniotic) Surgeon:: Demetria Shah DPM EDITOR NEWSPAPER:: Dmitriy Thomas Anesthesia: regional (left popliteal nerve block), LMA Estimated blood loss (mL): 15 Clinical Note:: Patient is a 56-year-old female who presents for continued/worsening pain to the left foot. She has a history of right foot bunion surgery. Patient has a history of scar contracture with vitamin D deficiency. The patient has tried modification of shoe gear, taping, strapping, inserts, ice, elevation, NSAIDs. After a long discussion with the patient in regards to the conservative versus surgical treatment for the bunion and toes deformities, the patient has elected to proceed with surgery because they have failed conservative treatment and continue to have pain and worsening symptoms affecting daily activities. The patient has been instructed on the planned procedure, all risk versus benefits of the procedure to include bleeding, infection, nerve and blood vessel damage, need for further surgery, recurrence of deformity, delay in healing of soft tissue or bone, failure of bones to heal, non-union, mal-union, prolonged pain and recovery, prolonged swelling, CRPS/RSD, DVT and anesthetic complications. No guarantees were given. All questions fully answered. The patient verbalized understanding and agreed to proceed with surgery. Written consent was obtained. Medical clearance per PCP-Dr Meier. Necessary labs and pre-op testing ordered: CBC, CMP, PTH, vit D, EKG, CXR. Rx for Percocet 7.5/325 # 28, Zofran 4mg, vit D. Fell with crutches. Has RKS. Operative findings:: Bone was somewhat soft, consistent with vitamin D deficiency. Mild to moderate bunion deformity noted. Minimally invasive surgical techniques used to reduce the bunion via distal metatarsal osteotomy. Bone cyst noted in the left proximal aspect of the proximal phalanx. No signs of infection noted. Second metatarsal elongated, healed second metatarsal stress fracture. There was a small osteochondral defect noted in the second metatarsal head centrally. Second hammertoe reducible with elongation of the toe noted. This case took 45 minutes to 1 hour longer than normal due to the poor bone quality and deformity. Operative note:: On this date and time, patient was deemed an appropriate surgical candidate. With informed consent signed, the patient was taken to the operating theater. The patient was positioned supine. General anesthesia induced. Tourniquet was applied to the left mid-calf. The left lower extremity was prepped and draped in normal sterile fashion. IV clindamycin given. Left foot bunionectomy (distal metatarsal osteotomy): Attention directed to the first MPJ where a mild to moderate bunion and dorsal medial eminence noted. Small stab incision made proximal to the metatarsal head. Blunt dissection around the metatarsal. Utilizing a power bur chevron osteotomy performed. Minimally invasive guide applied in accordance with manufacture guidelines and standard technique. Bunion was reduced and temporarily fixated. Intraoperative fluoroscopy utilized to check position and reduction. It was deemed to be appropriate. Wounds flushed with saline. Next a 4.0 mm cannulated screw followed by a 3.0 mm cannulated screw were inserted without complication. X-ray used to check fixation which was deemed to be appropriate an
--- NOTE | 2022-01-12 11:24 | SUR.OPER ---
LATE ENTRY [id number] family given update via Kathie Ferreira RN
--- NOTE | 2022-01-12 11:48 | HMH.ANESCL ---
[facility] Anesthesia Checklist - Patient Identification Patient Identification: Arm Band, Family - Structural Data Admitted From: Home Planned Operative Procedure/s: Left Foot Bunionectomy, 2nd Hammertoe Repair, Excision of Cyst Consent for Planned Operative Procedure(s) Verified: Yes Verified Documents: Surgical Consent, History and Physical - NPO Status Verified Time NPO: 00:00 - Additional verifications Anesthesia Reactions: Yes (SEVERE NAUSEA) Hx Blood Transfusions: No Blood Transfusion Reaction: No - Airway Assessment C-Spine Mobility Assessed: Yes (mp2) TMJ Mobility Assessed: Yes Dentition: Good Dentition - Neurological Assessment Level of Consciousness: Awake, Alert - Anesthesia Plan Anesthesia Risk discussed: Yes Anesthesia Plan: Verified ASA Class: II Anesthesia Type: General w/block (TIVA Anesthesia. Popliteal/Saphenous Nerve Block) [facility] History I have reviewed the patient's past medical history: Yes Medical History: Reports:: Anxiety, Gastroesophageal Reflux Disease(GERD) Denies:: Cancer, Diabetes Mellitus Type 1, Diabetes Mellitus Type 2, Hypertension, Internal Pacemaker, Lung Disease, MRSA, Seizures *Have you ever received a pneumonia vaccine?: No *Have you received a flu vaccine this season?: No Other Medical History: Denies: Blood Transfusion Reaction Anesthesia experience/problems:: nac Other Surgeries: Yes: Cholecystectomy, Colonoscopy, Diagnostic Lap, Hernia Repair, Hysterectomy-Total, Tubal Ligation, Other. No: Pacemaker Amputation: No Fractures: Yes - *Social History Last grade of school completed: Advanced degree Smoking Status: Never smoker Alcohol Intake: never Substance Use Type: denies use *Occupational Status:: employed Housing: house Household Members: spouse *Travel in the last 8 weeks: None - Psychiatric History Pschychiatric History:: Reports:: Anxiety Family Hx:: Cancer, Diabetes
--- NOTE | 2022-01-12 13:00 | XR_ITS ---
FINAL REPORT CLINICAL HISTORY: post op bunionectomy COMPARISON: 08/23/2021 FINDINGS: LEFT FOOT: Three views of the left foot were obtained. There is no acute fracture or dislocation. There has been interval postoperative change from 1st metatarsal osteotomy and distal 2nd metatarsal osteotomy with multiple screws. IMPRESSION: Postoperative changes as above. Reviewed, Interpreted and Dictated by Carson Parada III, MD Transcribed by Arelis Traylor Authenticated and [facility]
--- NOTE | 2022-01-12 13:59 | HMH.ANESI ---
[facility] Anesthesia Record Part I Intake, IV Amount: 1,600 Estimated blood loss (mL): 10 Urine output (mL): 0 Blood Pressure: 97/63 SaO2: 93 Pulse Rate: 87 Respiratory Rate: 16 Temperature: 97.9 F Patient is:: Drowsy, Stable Stable to PACU at:: 13:50
--- NOTE | 2022-01-12 14:06 | SUR.OPER ---
LATE ENTRY 1335 family updated via Susie Walker, RN
--- NOTE | 2022-01-12 14:15 | XR_ITS ---
FINAL REPORT CLINICAL HISTORY: BUNIONECTOMY/HAMMERTOE- in or Fluoro time: 2.06 2.71 mgy COMPARISON: August 23, 2021 FINDINGS: LEFT FOOT: Three views of the left foot were obtained. There are postoperative changes of the 1st and 2nd metatarsals from osteotomies. There are several screws present. There are mild degenerative changes of the great toe. There is no soft tissue abnormality. IMPRESSION: Postoperative change the 1st and 2nd metatarsals. Reviewed, Interpreted and Dictated by Carson Parada III, MD Transcribed by Magan Cruz Authenticated and [facility]
--- NOTE | 2022-01-12 14:28 | SUR.PHASEI ---
1418 detailed report called and given to Cristian So RN 1420 pt transported via stretcher to post op. vital signs are stable. denies pain. left in stable condition with Cristian So RN at bedside.
[2022-01-14 09:41] VITALS: BP 108/65; PULSE 94; TEMP 36.4
--- NOTE | 2022-01-14 09:41 | P.PN_ITS ---
[facility] Anesthesia Record Part II Discharge Time: 14:20 Destination: Surgical Day Care (OP Surgery) PACU nurse assessment reviewed?: Yes Patient Condition:: Good Anesthesia Complications:: None Swallowing reflex intact?: Yes Cyanosis?: No Blood Pressure: 108/65 Pulse Rate: 94 Temperature: 97.5 F Mental Status: Alert & Oriented Pain level:: 0 Nausea and/or vomitting:: None Intake, IV Amount: 0
== END 2022-01-12 15:15 | disposition home or self-care (01) ==
LOC: OR 09:06
PROVIDERS: PCP Internal Medicine; Visit Provider Podiatrist
PROC: (CPT 28296; principal; 2022-01-12 10:45)
DX: M20.12 Hallux valgus (acquired), left foot (principal); M77.42 Metatarsalgia, left foot; M20.42 Other hammer toe(s) (acquired), left foot; M85.89 Other specified disorders of bone density and structure, multiple sites; E21.3 Hyperparathyroidism, unspecified; M84.375A Stress fracture, left foot, initial encounter for fracture
CPT/HCPCS: 28296; 28308; 28108; 28285; 73620; 73630; 76000; C1713; C1762; J2405; J2704; Q4211

== ENCOUNTER → 2022-01-18 12:11 | Outpatient (CLI) | payer BC, SELFPAY ==
--- NOTE | 2022-01-18 12:15 | XR_ITS ---
FINAL REPORT CLINICAL HISTORY: pain, 1 week postop, lost balance today and hit foot. new pain. unable to put full weight down foot due to new pain. simulated weightbearing COMPARISON: 01/12/2022 FINDINGS: LEFT FOOT Three views were obtained. There are postoperative changes of the 1st metatarsal and the distal 2nd metatarsal. The bony alignment is stable. There is some callus involving the 1st metatarsal osteotomy site. No soft tissue abnormality is identified. IMPRESSION: Postsurgical changes as above. Reviewed, Interpreted and Dictated by Carson Parada III, MD Transcribed by Tara Rangel Authenticated and [facility]
== END ==
PROVIDERS: PCP Internal Medicine; Visit Provider Podiatrist
DX: M79.672 Pain in left foot (principal)
CPT/HCPCS: 73630

== ENCOUNTER → 2022-01-31 11:53 | Outpatient (CLI) | payer BC, SELFPAY ==
--- NOTE | 2022-01-31 11:55 | XR_ITS ---
FINAL REPORT CLINICAL HISTORY: pain post op COMPARISON: January 18, 2022 FINDINGS: LEFT FOOT: Three views of the left foot were obtained. There is no acute fracture or dislocation. Postoperative changes are again seen in the 1st and 2nd metatarsals. There is no soft tissue abnormality. IMPRESSION: Postoperative changes with no acute bony abnormality. Reviewed, Interpreted and Dictated by Carson Parada III, MD Transcribed by Dania Espinosa Authenticated and . [facility]
== END ==
PROVIDERS: PCP Internal Medicine; Visit Provider Podiatrist
DX: R60.0 Localized edema (principal); Z98.890 Other specified postprocedural states
CPT/HCPCS: 73630

== ENCOUNTER → 2022-02-21 10:07 | Outpatient (CLI) | payer BC, SELFPAY ==
--- NOTE | 2022-02-21 10:11 | XR_ITS ---
FINAL REPORT CLINICAL HISTORY: postop views COMPARISON: January 31, 2022 FINDINGS: LEFT FOOT Three views of the left foot demonstrate 2 orthopedic screws securing a mid 1st metatarsal osteotomy. The proximal margins of the screws lie exterior to the 1st metatarsal, best seen on the oblique views. There are 2 screws securing a fracture of the distal 2nd metatarsal. Again, the orthopedic hardware extends beyond the margin of the bony structures. The soft tissues are unremarkable. IMPRESSION: Postoperative changes as above. Reviewed, Interpreted and Dictated by Graham Caicedo MD Transcribed by Ariadna Barros Authenticated and [facility]
== END ==
PROVIDERS: PCP Internal Medicine; Visit Provider Podiatrist
DX: M79.672 Pain in left foot (principal); Z98.890 Other specified postprocedural states
CPT/HCPCS: 73630

== ENCOUNTER → 2022-03-22 14:31 | Outpatient (CLI) | payer BC, SELFPAY ==
--- NOTE | 2022-03-22 14:35 | XR_ITS ---
FINAL REPORT CLINICAL HISTORY: postop views, hx of surgery on January 12 COMPARISON: February 21, 2022 FINDINGS: LEFT FOOT: Three views of the left foot were obtained. There are postoperative changes of the 1st and 2nd metatarsals. Bony alignment is stable. There is increased callus formation the site of the 1st metatarsal osteotomy. There is no acute fracture or dislocation. There is mild degenerative change. There is no soft tissue abnormality. IMPRESSION: Postoperative change as described. Reviewed, Interpreted and Dictated by Carson Parada III, MD Transcribed by Ariadna Barros Authenticated and . [facility]
== END ==
PROVIDERS: PCP Internal Medicine; Visit Provider Podiatrist
DX: G89.18 Other acute postprocedural pain (principal); M20.12 Hallux valgus (acquired), left foot; M85.672 Other cyst of bone, left ankle and foot; Z98.890 Other specified postprocedural states
CPT/HCPCS: 73630

== ENCOUNTER 2022-03-25 16:00 | Outpatient (RCR) | payer BC, SELFPAY ==
--- NOTE | 2022-03-16 12:16 | HMH.PTOPEV ---
PT Outpatient Evaluation Rehab PT Outpatient Evaluation Start: 03/16/22 11:04 Freq: Status: Active Protocol: Document 03/16/22 11:05 JESUS (Rec: 03/16/22 12:16 JESUS [id number]) Electronically Signed By Tracy Chadwick PT 03/16/22 11:05 Outpatient Therapy Subjective History Subjective History Pt is a 56 y/o female that reports having surgery on her L foot on 01/12/22. Per physician documentation, surgical procedures included left HAV and hammertoe repair of 2nd toe. Pt had followup radiographs at [facility] on 01/18 adn 01/31 without significant findings. Pt reports she was immobilized for 3 weeks post surgery then placed in a boot and transitioned to a shoe 3 weeks ago. Pt is currently FWB in wide supportive tennis shoe and instructed to wear a darco splint when she is not wearing the shoe. Pt reports she still wears the boot when she has pain such as walking at work on concrete floor. Pt reports she had a lot of pain and her foot stayed inflammed prior to surgery which has improved since. Pt states pain is a lot better now but if she steps a certain way she has sharp pain along the plantar surface of the foot and tingling/burning on the big toe side of the foot intermittently. Pt states she tends to walk on the outside of the foot to avoid pain. Pt reports she went on vacation last week that involved a lot of walking and caused pain on the outside of the foot. Pt reports she wore her boot after the 1st day of vacation which did help. Pt reports she goes back to Dr. Shah on Monday for another radiograph and reports she was told it would take
== END 2022-03-25 16:05 | disposition home or self-care (01) ==
LOC: PT 16:00
PROVIDERS: PCP Internal Medicine; Visit Provider Podiatrist
DX: M20.12 Hallux valgus (acquired), left foot (principal); Z98.890 Other specified postprocedural states
CPT/HCPCS: 97016; 97035; 97110; 97112; 97140; 97163; 97530; 97535

== ENCOUNTER → 2022-05-03 14:36 | Outpatient (CLI) | payer BC, SELFPAY ==
--- NOTE | 2022-05-03 14:39 | XR_ITS ---
FINAL REPORT CLINICAL HISTORY: pain, f/u to bunion sx in January FINDINGS: LEFT FOOT Three weight-bearing views of the left foot were obtained. There are 2 orthopedic screws securing a healing fracture deformity of the mid 1st metatarsal. Orthopedic hardware extends across the 1st tarsal metatarsal joint. There are 2 orthopedic screws in the distal 2nd metatarsal. No acute fracture is identified. The soft tissues are unremarkable. IMPRESSION: Postoperative changes with no acute bony abnormality. Reviewed, Interpreted and Dictated by Graham Caicedo MD Transcribed by Ariadna Barros Authenticated and [facility]
== END ==
PROVIDERS: PCP Internal Medicine; Visit Provider Podiatrist
DX: G89.18 Other acute postprocedural pain (principal)
CPT/HCPCS: 73630

== ENCOUNTER → 2022-06-01 15:31 | Outpatient (CLI) | payer BC, SELFPAY ==
--- NOTE | 2022-06-01 15:35 | MM_ITS ---
PROCEDURE INFORMATION: Exam: MG Bilateral Screening 3D Mammography Exam date and time: 06/01/2022 3:37 PM Age: 56 years old Clinical indication: Screening. History of benign left needle biopsy. No family history of breast cancer. TECHNIQUE: Imaging protocol: Bilateral Screening tomosynthesis and 2D mammography including computer-aided detection (CAD) when performed. COMPARISON: 1. MG MM DIG SCREENING MAMM BI W/CAD 05/28/2021 3:51 PM 2. MG MM DIG SCREENING MAMM BI W/CAD 05/19/2020 10:11 AM 3. MG MM DIG MAMM DX UNILAT LT CAD 11/18/2019 1:10 PM 4. MG MM DIG SCREENING MAMM BI W/CAD 05/23/2019 8:36 AM FINDINGS: MAMMOGRAPHY: Breast composition: There are scattered areas of fibroglandular density. Mass: No suspicious mass. The Architectural distortion: None. Calcifications: No suspicious calcifications. Asymmetric density: No developing asymmetry. Skin thickening: None. Axillary adenopathy: None. IMPRESSION: No mammographic evidence of malignancy. Annual screening is recommended unless otherwise clinically indicated. ASSESSMENT: BI-RADS Category 1: Negative
== END ==
PROVIDERS: PCP Internal Medicine; Visit Provider Nurse Practitioner Obstetrics & Gynecology
DX: Z12.31 Encounter for screening mammogram for malignant neoplasm of breast (principal)
CPT/HCPCS: 77063; 77067

== ENCOUNTER → 2022-09-12 15:39 | Outpatient (CLI) | payer BC, SELFPAY ==
--- NOTE | 2022-09-12 15:41 | XR_ITS ---
FINAL REPORT CLINICAL HISTORY: post-op COMPARISON: April 2022 FINDINGS: 3 weight-bearing views of the left foot were obtained. There is no acute fracture or dislocation. There are stable postoperative changes involving the 1st and 2nd metatarsal. There is mild degenerative change. There is stable postoperative change involving the 2nd middle phalanx. IMPRESSION: Stable postoperative changes. Reviewed, Interpreted and Dictated by Carson Parada III, MD Transcribed by Magan Cruz Authenticated and . [facility]
== END ==
PROVIDERS: PCP Internal Medicine; Visit Provider Podiatrist
DX: Z98.890 Other specified postprocedural states (principal); M79.672 Pain in left foot
CPT/HCPCS: 73630

== ENCOUNTER → 2022-10-03 06:46 | Outpatient (CLI) | payer BC, SELFPAY ==
--- NOTE | 2022-10-03 06:48 | CT_ITS ---
FINAL REPORT TECHNIQUE: Thin section axial CT images with coronal and sagittal reformats were performed. This study was performed with techniques to keep radiation doses as low as reasonably achievable (ALARA). Individualized dose reduction techniques using automated exposure control or adjustment of mA and/or kV according to the patient''s size were employed. CLINICAL HISTORY: foot pain COMPARISON: 09/12/2019 FINDINGS: There are postoperative changes of the 1st and 2nd metatarsal with multiple screws. There is a screw in the 1st metatarsal which extends proximally into the region of the medial aspect of the medial cuneiform. There is bony union of the osteotomies. There are mild degenerative changes of the 1st metatarsophalangeal. IMPRESSION: Degenerative and postsurgical changes as above. Reviewed, Interpreted and Dictated by Carson Parada III, MD Transcribed by Tara Rangel Authenticated and [facility]
== END ==
PROVIDERS: PCP Internal Medicine; Visit Provider Podiatrist
DX: M77.42 Metatarsalgia, left foot (principal); Z96.9 Presence of functional implant, unspecified
CPT/HCPCS: 73700

== ENCOUNTER → 2022-10-10 11:45 | Outpatient (CLI) | payer BC, SELFPAY ==
--- NOTE | 2022-10-10 11:57 | ECG_ITS ---
APPROVED REPORT Exam: Resting ECG HR:86 bpm ECG Measurements Heart Rate 86 AXES SC 140 P 9 QRSd 99 QRS -1 QT 356 T 3 QTc 400 Conclusion SINUS RHYTHM LOW QRS VOLTAGE IN PRECORDIAL LEADS [QRS DEFLECTION < 1.0 mV IN CHEST LEADS] BORDERLINE ECG UNCONFIRMED REPORT Electronically signed by : Rogerio Correa MD 10/10/2022 19:21:14
== END ==
PROVIDERS: PCP Internal Medicine; Visit Provider Podiatrist
DX: Z01.810 Encounter for preprocedural cardiovascular examination (principal); Z96.9 Presence of functional implant, unspecified
CPT/HCPCS: 93005

== ENCOUNTER 2022-10-19 08:05 | Day surgery (SDC) | payer BC, SELFPAY ==
[2022-10-19] VITALS (7 sets, daily range): BP systolic 103–147; BP diastolic 61–84; PULSE 86–101; RESP 16–18; TEMP 36.4–43; O2SAT 91–99
--- NOTE | 2022-10-19 11:00 | XR_ITS ---
FINAL REPORT CLINICAL HISTORY: Post op hardware screw removal COMPARISON: 09/12/2022 FINDINGS: LEFT FOOT Three views of the left foot were obtained. Again noted are postoperative changes in the 1st and 2nd metatarsals. Two screws are again seen in the 1st metatarsal. There is bony fusion of the osteotomy. One of the 2 screws has been removed from the distal 2nd metatarsal. Alignment appears stable. There are mild degenerative changes. No new abnormality is identified. Soft tissues are unremarkable. IMPRESSION: Postoperative changes with interval removal of a screw from the distal 2nd metatarsal. No new abnormality identified. Reviewed, Interpreted and Dictated by Carson Parada III, MD Transcribed by Ariadna Barros Authenticated and [facility]
--- NOTE | 2022-10-19 11:16 | P.PN_ITS ---
[facility] Disclaimer: The information contained in this section may have been updated after the patient was seen, as this information can be updated by other users. Medical History Allergies Anxiety Bronchitis Bunion, left foot Colonoscopy planned Endometriosis Gestational diabetes History of COVID-19 History of gastroesophageal reflux (GERD) Irritable bowel syndrome (IBS) Normal esophagogastroduodenoscopy (EGD) Urinary tract infection Surgical History H/O laparoscopy H/O tubal ligation History of bunionectomy History of cholecystectomy History of hysterectomy History of surgery Family History Father Kidney disease Cancer Hypertension Sister Cancer Hypertension Mother Diabetes Stroke Grandmother Diabetes Social History Smoking Status: Never smoker alcohol intake: never substance use type: denies use current occupational status: employed Travel in the last 8 weeks: None household members: spouse housing: house current occupation: school caffeine: Yes [facility] Anesthesia Checklist Patient Identification Patient Identification: Verbal (Name & ) Structural Data Admitted From: Home Planned Operative Procedure/s: removal hardware l foot Consent for Planned Operative Procedure(s) Verified: Yes Additional verifications Anesthesia Reactions: Yes (SEVERE NAUSEA) Hx Blood Transfusions: No Blood Transfusion Reaction: No Airway Assessment C-Spine Mobility Assessed: Yes TMJ Mobility Assessed: Yes Dentition: Good Dentition Neurological Assessment Level of Consciousness: Awake, Alert and Appropriate Anesthesia Plan Anesthesia Risk discussed: Yes Anesthesia Plan: Verified ASA Class: I Anesthesia Type: MAC
--- NOTE | 2022-10-19 11:33 | EXP.OP.NOTE ---
Date of procedure: 10/19/22 Pre-op Diagnosis:: Left foot painful retained hardware Left foot synovitis Left 2nd MPJ capsulitis Post-op Diagnosis:: Same Procedure performed:: Left deep hardware removal Left MPJ capsulotomy Left foot synovectomy Application of amniotic graft Surgeon:: Demetria Shah DPM PROSTHETIC AIDE:: Luis Gonzalez Anesthesia: MAC and local (20cc 0.5% Marcaine plain) Estimated blood loss (mL): 10 Clinical Note:: Patient is a 57-year-old female who underwent surgery 01/12/2022 for left foot bunionectomy, second metatarsal osteotomy and hammertoe repair.? She began having pain to the subsecond metatarsal, second MPJ a few months ago.? We discussed differential diagnosis: Hardware failure, screw backing out of the second metatarsal head, met head fracture, synovitis, capsulitis.? CT 10/03/2021 showed degenerative and postsurgical changes.? Concern of elongated second metatarsal screw causing irritation and synovitis.? The patient has been using metatarsal pads, immobilization fracture boot, inserts, strapping, RICE protocol, NSAIDs.? Symptoms persist with prolonged standing and activity. After a long discussion with the patient in regards to the conservative versus surgical treatment for the bunion deformity, the patient has elected to proceed with surgery because they have failed conservative treatment and continue to have pain and worsening symptoms affecting daily activities. The patient has been instructed on the planned procedure, all risk versus benefits of the procedure to include bleeding, infection, nerve and blood vessel damage, need for further surgery, delay in healing of soft tissue or bone, failure of bones to heal, non-union, mal-union, prolonged pain and recovery, prolonged swelling, CRPS/RSD, DVT and anesthetic complications. No guarantees were given. All questions fully answered. The patient verbalized understanding and agreed to proceed with surgery. Written consent was obtained. Patient has a short fracture boot and enough pain meds from last surgery. Saw Dr Bobby Stevens on 10/01/22 and had blood work: wbc 8.5, cr 0.65, gfr 102, glucose 87, UA wnl, esr 3, crp 1, RA panel wnl. Operative findings:: Well-healed surgical scars to the left foot. Left second MPJ incision opened and there was some fibrotic scar tissue noted full-thickness. There was some synovitis noted around the capsule. Synovitic scar tissue was debrided sharply excisionally with 15 blade and forceps. No evidence of infection noted. 1 screw was easily removed. The other screw at the second metatarsal head was deeply embedded and to remove it would have caused some damage to the bone. The second screw was left intact. Operative note:: On this date and time patient was deemed an appropriate surgical candidate. With informed consent signed, the patient was taken to the operating theater. The patient was positioned supine. MAC anesthesia was induced. No tourniquet utilized. Pre-op foot/ankle block given with 20 cc 0.5% marcaine plain. IV clinda infused. The left lower extremity was prepped and draped in normal sterile fashion. Left 2nd Metatarsal Hardware Removal: Attention was directed to the left second MPJ where a dorsal linear incision was mapped out over the joint over the previous well-healed scar. Dissection was carried thru skin and sub q tissue, with care to maintain surgical hemostasis. Dissection was made full-thickness then down to the level of the bone. The hardware was visualized. The long screw was removed. No signs of infection noted. The soft tissue appeared healthy with some synovitic changes and scar tissue noted. There was no purulence or malodor appreciated. No periwound erythema or palpable lymph nodes. Left MPJ synovectomy, capsulotomy, graft application: The joint capsule around the MPJ was freed of scar tissue. 15 blade and forceps used to debride nonviable synovitic tissue. The was flushed with copious amounts of normal sterile saline. Due to
--- NOTE | 2022-10-19 14:59 | XR_ITS ---
FINAL REPORT CLINICAL HISTORY: HARDWARD REMOVED 1 screw: fluoro time FINDINGS: FLUORO TIME PROCEDURE: Fluoroscopy in the operating room. FINDINGS: Fluoroscopy time was provided by the radiology department for the clinical service. One film was obtained. Fluoroscopy exposure time: 0.21 minutes IMPRESSION: See above Reviewed, Interpreted and Dictated by Carson Parada III, MD Transcribed by Ariadna Barros Authenticated and . [facility]
== END 2022-10-19 12:15 | disposition home or self-care (01) ==
PROVIDERS: PCP Internal Medicine; Visit Provider Podiatrist
PROC: (CPT 20680; principal; 2022-10-19 09:30)
DX: M77.42 Metatarsalgia, left foot (principal); M24.575 Contracture, left foot; T84.84XA Pain due to internal orthopedic prosthetic devices, implants and grafts, initial encounter; G89.18 Other acute postprocedural pain; Y83.1 Surgical operation with implant of artificial internal device as the cause of abnormal reaction of the patient, or of later complication, without mention of misadventure at the time of the procedure; Z79.899 Other long term (current) drug therapy; M65.872 Other synovitis and tenosynovitis, left ankle and foot
CPT/HCPCS: 20680; 28270; 28072; 73620; 73630; 76000; 96374; J2405

== ENCOUNTER → 2022-11-09 15:37 | Outpatient (CLI) | payer BC, SELFPAY ==
--- NOTE | 2022-11-09 15:41 | XR_ITS ---
FINAL REPORT CLINICAL HISTORY: Left foot postoperative x 3 wks COMPARISON: 10/19/2022 FINDINGS: AP, oblique and lateral views of the left foot were obtained. There are postoperative changes in the 1st metatarsal and 2nd metatarsal head. Hardware is intact. There is no change in alignment of the 2nd metatarsal head fracture. No new abnormality identified. There is mild multi joint degenerative disease. Soft tissues are normal. IMPRESSION: Postoperative and degenerative changes with no acute osseous abnormality of the left foot. Reviewed, Interpreted and Dictated by Malia Pham MD Transcribed by Robyn Roland Authenticated and [facility]
== END ==
PROVIDERS: PCP Internal Medicine; Visit Provider Podiatrist
DX: M79.672 Pain in left foot (principal); Z98.890 Other specified postprocedural states
CPT/HCPCS: 73630

== ENCOUNTER → 2023-03-01 10:15 | Outpatient (CLI) | payer BC, SELFPAY ==
--- NOTE | 2023-03-01 10:21 | XR_ITS ---
FINAL REPORT CLINICAL HISTORY: SCIATICA FINDINGS: AP, lateral, and oblique views of the lumbar spine were obtained. There is no acute fracture. There is grade 1 anterior spondylolisthesis of L4 on 5. There is mild multilevel degenerative disc disease, most pronounced at L3-4. Vertebral body height is preserved. No acute paraspinal abnormality is identified. IMPRESSION: Mild multilevel degenerative disc disease. Reviewed, Interpreted and Dictated by Malia Pham MD Transcribed by Tara Rangel Authenticated and [facility]
== END ==
PROVIDERS: PCP Internal Medicine; Visit Provider Internal Medicine
DX: M54.42 Lumbago with sciatica, left side (principal)
CPT/HCPCS: 72110

== ENCOUNTER 2023-03-13 08:41 | Outpatient (RCR) | payer BC, SELFPAY ==
--- NOTE | 2023-03-13 10:09 | HMH.PTOPEV ---
PT Outpatient Evaluation Rehab PT Outpatient Evaluation Start: 03/13/23 08:48 Freq: Status: Active Protocol: Document 03/13/23 08:48 JESUS (Rec: 03/13/23 10:09 JESUS [id number]) E-signed By Tracy Chadwick, PT Outpatient Therapy Subjective History Subjective History Pt is a 57 y/o female who reports history of chronic low back pain and L bursitits. Pt reports insidious onset of posterior left hip pain about 4 weeks ago that refers into the left posterior thigh above the knee with prolonged activity such as walking. Pt denies distal symptoms below the knee. Pt denies numbness/ tingling or b/b dysfunction. Pt reports she wore a boot on the L foot for a long time impairing her gait which she thinks may have caused this issue to flare up. Pt had a lumbar spine radiograph at [facility] on 03/01/23 with impression of There is grade 1 anterior spondylolisthesis of L4 on 5. There is mild multilevel degenerative disc disease, most pronounced at L3-4. Pt reports she was prescribed Gabapentin 100 mg 1x/day at night time which has significantly improved her symptoms. Pt reports she is now able to sleep better and lay on the left hip. Pt reports the Gabapentin impairs her focus and she does not want to take it when she returns back to work this . Pt denies further comorbidities to report. 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
== END 2023-03-13 10:00 | disposition home or self-care (01) ==
LOC: PT 08:41
PROVIDERS: PCP Internal Medicine; Visit Provider Internal Medicine
DX: M54.42 Lumbago with sciatica, left side (principal)
CPT/HCPCS: 97010; 97014; 97110; 97163; G0283

== ENCOUNTER → 2023-06-05 15:40 | Outpatient (CLI) | payer BC, SELFPAY ==
--- NOTE | 2023-06-05 15:40 | MM_ITS ---
PROCEDURE INFORMATION: Exam: MG Bilateral Screening 3D Mammography Exam date and time: 06/05/2023 3:50 PM Age: 57 years old Clinical indication: Screening mammogram. TECHNIQUE: Imaging protocol: Bilateral Screening tomosynthesis and 2D mammography including computer-aided detection (CAD) when performed. COMPARISON: 1. MG MM DIG SCREENING MAMM BI W/CAD 06/01/2022 3:37 PM 2. MG MM DIG SCREENING MAMM BI W/CAD 05/28/2021 3:51 PM 3. MG MM DIG SCREENING MAMM BI W/CAD 05/19/2020 10:11 AM 4. MG MM DIG MAMM DX UNILAT LT CAD 11/18/2019 1:10 PM FINDINGS: MAMMOGRAPHY: Breast composition: There are scattered areas of fibroglandular density. Mass: Stable benign-appearing subcentimeter nodules are present in the bilateral breast. No new or morphologically suspicious nodule has developed to suggest malignancy. Architectural distortion: No new or suspicious architectural distortion. Calcifications: No new or suspicious calcifications are present Asymmetric density: No new or suspicious asymmetric density is present Skin thickening: None. Axillary adenopathy: None. IMPRESSION: No mammographic evidence of malignancy. Recommend annual screening mammography unless otherwise clinically indicated. ASSESSMENT: BI-RADS category 2: Benign
== END ==
PROVIDERS: PCP Internal Medicine; Visit Provider Nurse Practitioner Obstetrics & Gynecology
DX: Z12.31 Encounter for screening mammogram for malignant neoplasm of breast (principal)
CPT/HCPCS: 77063; 77067

== ENCOUNTER → 2023-06-17 12:50 | Outpatient (CLI) | payer BC, SELFPAY ==
--- NOTE | 2023-06-17 12:54 | XR_ITS ---
PROCEDURE INFORMATION: Exam: XR Left Foot Complete; Alignment Exam date and time: 06/17/2023 12:59 PM Age: 57 years old Clinical indication: Pain; Foot; Left; Prior surgery; Surgery date: 6+ months; Surgery type: Bunion SX 2020. Shortened 2nd toe. Removed screw from the 2nd toe site in November 03; Additional info: Foot pain. Bruising at mtp joints on dorsal surface of foot TECHNIQUE: Imaging protocol: Radiologic exam of the left foot. Views: 3 or more views. COMPARISON: CR XR FOOT WT BEARING LT 3V 11/09/2022 3:41 PM FINDINGS: Bones/joints: Status post ORIF 1st metatarsal. Solitary fixation screw again demonstrated in the 2nd metatarsal head . Hardware appears intact. Posttraumatic deformity of the 2nd metatarsal head unchanged. Soft tissues: Normal. IMPRESSION: Intact ORIF. No evidence of acute injury or hardware failure.
== END ==
PROVIDERS: PCP Internal Medicine; Visit Provider Podiatrist
DX: M79.672 Pain in left foot (principal); R60.9 Edema, unspecified
CPT/HCPCS: 73630

== ENCOUNTER 2023-08-06 09:20 | Emergency (ER) | payer BC, SELFPAY ==
[2023-08-06 09:30] VITALS: BP 120/67; PULSE 85; RESP 19; TEMP 36.8; O2SAT 98; BMI 30.4
--- NOTE | 2023-08-06 09:55 | EXP.UTC ---
Discharge Plan Disposition Patient Disposition: Home, Self-Care Condition: Good Prescriptions Prescriptions: New azithromycin [Zithromax Z-Joseph] 250 mg tablet See Rx Instructions .ROUTE .COMPLEX 5 Days Qty: 6 0RF Rx Instructions: For 250 mg dose pack: take 500 mg today (day 1), then 250 mg for 4 days (days 2-5) benzonatate 100 mg capsule 100 mg PO TID PRN (Reason: cough) Qty: 30 0RF methylprednisolone [Medrol (Joseph)] 4 mg tablets,dose pack See Rx Instructions .Route .COMPLEX 6 Days Qty: 21 0RF Rx Instructions: taper pack; No Action meloxicam 7.5 mg tablet 7.5 mg PO DAILY omeprazole 20 mg capsule,delayed release(DR/EC) 20 mg PO DAILY gabapentin 100 mg capsule PO duloxetine 30 mg capsule,delayed release(DR/EC) PO fluticasone propionate [Flonase Allergy Relief] 50 mcg/actuation spray,suspension 2 spray NS DAILY Rx Instructions: administer into each nostril montelukast 10 mg tablet 10 mg PO DAILY Motegrity 2 mg tablet 2 mg PO DAILY Patient Comments: TAKE 1 TABLET BY MOUTH ONCE DAILY duloxetine 60 mg capsule,delayed release(DR/EC) 60 mg PO DAILY estradiol [Olinda] 0.1 mg/24 hr patch semiweekly 1 patch topical .Twice weekly 90 Days Qty: 24 3RF multivitamin Tablet 1 tab PO DAILY estradiol 0.1 mg/24 hr patch semiweekly See Rx Instructions .ROUTE .COMPLEX Rx Instructions: APPLY 1 PATCH TOPICALLY TWICE A WEEK Referrals Follow up/Referrals: Baljinder Meier MD [Primary Care Provider] - See instructions Activity Restrictions/Add. Instructions Additional Instructions/Restrictions: Start antibiotic today. Be sure to complete entire prescription even if feeling better Monitor temp. Tylenol every 4 hours as needed and / or ibuprofen every 6 hours as needed ( As long as your primary care physician has told you that it ok to take both. For fever/aches/pains ER if no less than 101 despite Tylenol or Motrin Humidifier/vaporizer or hot steamy shower Mucinex during the day for your cough and cough suppressant only at night. Be sure to drink lots of water. *Tessalon Perles will not cause drowsiness but use at bedtime to help stop cough so that you may get some rest. *Start steroid today. Helps with inflammation therefore, cough and wheezing. Follow directions on the package. Reviewed side effects. Patient reports taking them before. Follow up IMMEDIATELY for new or worsening of symptoms OR no noticeable improvement over the next 48-72 hours. 911 immediately for any life threatening symptoms such as chest pain or difficulty breathing Clinical Impressions Clinical Impression: Bronchitis Instructions Patient Instructions: Cough, Methylprednisolone, Azithromycin Discharge ED Provider: Pat Shanks [facility] General Stated complaint: cough Mode of Arrival: Ambulatory Source of Information: Patient Limitations: No Limitations Time Seen by Provider: 08/06/23 09:55 Description of Symptoms (Recalled from Triage Doc. by RN): PATIENT C/O COUGH AND SOA X 4 DAYS HEENT Symptoms (Recalled from RN notes): No Resp Symptoms (Recalled from RN notes): Yes Skin Symptoms (Recalled from RN notes): No MS Symptoms (Recalled from RN notes): No Functional Status (Recalled from RN notes): WNL History of Present Illness Provider Complaint: Patient states that she has been having cough, chest congestion and coughing so much at times it felt like it took her breath States that she has been taking mucinex and it hasnt helped much so today when she was still not feeling well and her throat was scratchy she came in to get checked Related Data Home Medications Medication Instructions Recorded Confirmed fluticasone propionate 50 2 spray intranasal DAILY Breathing 10/15/20 06/20/23 mcg/actuation nasal problems spray,suspension (Flonase Allergy Relief) montelukast 10 mg tablet 10 mg PO MARIA G
[2023-08-06 10:09] VITALS: BP 120/67; PULSE 85; RESP 19; TEMP 36.8; O2SAT 98
== END 2023-08-06 10:11 | disposition home or self-care (01) ==
PROVIDERS: Emergency Provider Nurse Practitioner; PCP Internal Medicine
DX: J20.9 Acute bronchitis, unspecified (principal); R06.02 Shortness of breath; R05.9 Cough, unspecified; R09.89 Other specified symptoms and signs involving the circulatory and respiratory systems; R07.0 Pain in throat
CPT/HCPCS: 99212; 99214; G0463

== ENCOUNTER 2023-09-23 08:12 | Emergency (ER) | payer BC, SELFPAY ==
[2023-09-23 08:20] VITALS: BP 111/69; PULSE 107; RESP 20; TEMP 36.7; O2SAT 97; BMI 29.9
--- NOTE | 2023-09-23 08:21 | EXP.UTC ---
Discharge Plan Disposition Patient Disposition: Home, Self-Care Condition: Good Prescriptions Prescriptions: New azithromycin [Zithromax] 250 mg tablet 250 mg PO UD DOSE PK Qty: 6 0RF Rx Instructions: Take two (2) tablets today, then one (1) tablet days #2 thru #5 benzonatate [benzonatate] 100 mg capsule 100 mg PO TIDP PRN (Reason: Cough) Qty: 30 0RF methylprednisolone 4 mg Tablets,Dose Pack 4 mg PO DIRECTED 6 Days Qty: 21 0RF Rx Instructions: Take 1 pack as directed for 6 days guaifenesin [Mucinex] 600 mg tablet extended release 12hr 600 - 1,200 mg PO BIDP PRN (Reason: Congestion) Qty: 30 0RF No Action meloxicam 7.5 mg tablet 7.5 mg PO DAILY omeprazole 20 mg capsule,delayed release(DR/EC) 20 mg PO DAILY fluticasone propionate [Flonase Allergy Relief] 50 mcg/actuation spray,suspension 2 spray NS DAILY Rx Instructions: administer into each nostril montelukast 10 mg tablet 10 mg PO DAILY Motegrity 2 mg tablet 2 mg PO DAILY Patient Comments: TAKE 1 TABLET BY MOUTH ONCE DAILY estradiol [Olinda] 0.1 mg/24 hr patch semiweekly 1 patch topical .Twice weekly 90 Days Qty: 24 3RF Referrals Follow up/Referrals: Baljinder Meier MD [Primary Care Provider] - See instructions Activity Restrictions/Add. Instructions Additional Instructions/Restrictions: Drink plenty of fluids. Take tylenol or ibuprofen for pain or fever. Take the medications as directed. Follow up with your regular doctor. GO TO THE ER FOR ANY WORSENING SYMPTOMS Clinical Impressions Clinical Impression: Sinusitis Instructions Patient Instructions: Sinusitis, DI for Sinusitis [place]charge ED [place] Fuentes Ugal[place] [facility] [place] General Stated complaint: runny nose, sore throat, headache, congestion Time Seen by Provider: 09/23/23 08:21 History of Present Illness Provider Complaint: She states that for the past 3 days she has had worsening sinus congestion, ear pain, scratchy throat, and malaise. Related Data Home Medications Medication Instructions Recorded Confirmed fluticasone propionate 50 2 spray intranasal DAILY Breathing 10/15/20 09/23/23 mcg/actuation nasal problems spray,suspension (Flonase Allergy Relief) montelukast 10 mg tablet 10 mg PO DAILY Breathing problems 10/15/20 09/23/23 meloxicam 7.5 mg tablet 7.5 mg PO DAILY Pain 08/23/21 09/23/23 omeprazole 20 mg capsule,delayed 20 mg PO DAILY stomach 08/23/21 09/23/23 release prucalopride 2 mg tablet 2 mg PO DAILY . 10/04/21 09/23/23 (Motegrity) Previous Rx's Medication Instructions Recorded estradiol 0.1 mg/24 hr semiweekly 1 patch topical .Twice weekly 90 04/03/23 transdermal patch (Olinda) days #24 ea azithromycin 250 mg tablet 250 mg PO UD DOSE PK #6 tabs 09/23/23 (Zithromax) benzonatate 100 mg capsule 100 mg PO TIDP PRN Cough #30 caps 09/23/23 guaifenesin 600 mg tablet, 600 - 1,200 mg PO BIDP PRN 09/23/23 extended release 12 hr (Mucinex) Congestion #30 tabs methylprednisolone 4 mg tablets in 4 mg PO DIRECTED 6 days #21 tabs 09/23/23 a dose pack Allergies Allergy/AdvReac Type Severity Reaction Status Date / Time latex [LATEX] Allergy Mild Verified 06/20/23 08:57 Penicillins [PENICILLINS] Allergy Mild Verified 06/20/23 08:[address] [facility] Disclaimer: The information contained in this section may have been updated after the patient was seen, as this information can be updated by other users. Medical History Allergies Anxiety Bronchitis Bunion, left foot Colonoscopy planned Endometriosis Gestational diabetes History of COVID-19 History of gastroesophageal reflux (GERD) Irritable bowel syndrome (IBS) Normal esophagogastroduodenoscopy (EGD) Urinary tract infection Surgical History H/O laparoscopy H/O tubal ligation History of bunionectomy History of cholecystectomy History of hysterectomy History of surgery RIGHT FOOT X2 LEFT FOOT X1 Family History Father Kidney disease Cancer Hypertension Sister Cancer Hypertension Mother Diabetes Stroke Grandmother Diabetes Social History Smoking Status: Never smoker alcohol intake: never substance use type: denies use current occupational status: employed Travel in the last 8 weeks: None household members: spouse housing: house current occupation: school caffeine: Yes ROS Obtained: Yes All systems reviewed & no additional complaints except as documented Constitutional Constitutional: Reports poor appetite Eyes Eyes: Reports system reviewed and no additional complaints, except as documented ENT Ears, Nose, Mouth, and Throat: Reports as per HPI Cardiovascular Cardiovascular: Reports system reviewed and no additional complaints, except as documented and Denies chest pain Respiratory Respiratory: Denies shortness of breath, Denies chest congestion, Reports cough, Denies stridor and Denies wheezing Gastrointestinal Gastrointestingal: Reports system reviewed and no additional complaints, except as documented; Denies abdominal pain, diarrhea or vomiting Musculoskeletal Musculoskeletal: Reports system reviewed and no additional complaints, except as documented and Denies arthralgias Integumentary/Breasts Skin/Breast: Reports system reviewed and no additional complaints, except as documented and Denies rash Neurologic Neurologic: Denies paresthesias Allergic/Immunologic Allergic/Immunologic: Denies wheezing Physical Exam General General appearance: alert and in no apparent distress Eye Eye exam: Present normal appearance, PERRL and EOMI ENT ENT exam: Present mucous membranes moist and normal external ear exam Expanded ENT Exam External ear exam: Present normal external inspection TM/Canal exam: Bilateral TM: erythema and bulging Nose exam: Absent sinus tenderness Nasal speculum exam: Bilateral: normal Mouth exam: Present normal external inspection; Absent drooling Teeth exam: Present normal inspection Throat exam: Present tonsillar erythema and tonsillomegaly Neck Neck exam: Present normal inspection, full ROM and trachea midline; Absent tenderness, lymphadenopathy or thyromegaly Chest Chest inspection: Present normal inspection and symmetric chest wall rise; Absent tenderness or rash Respiratory Respiratory exam: Present normal lung sounds bilaterally; Absent respiratory distress, wheezes, stridor or accessory muscle use Cardiovascular Cardiovascular exam: Present regular rate, normal rhythm and normal heart sounds Abdominal Exam Abdominal exam: Present soft; Absent distention, tenderness, guarding, rebound or rigidity Extremities Exam Extremities exam: Present normal inspection, full ROM and normal capillary refill; Absent tenderness or calf tenderness Back Exam Back exam: Present normal inspection and full ROM; Absent tenderness Neurological Exam Neurological exam: Present alert and oriented X3 Psychiatric Psychiatric exam: Present normal affect and normal mood Skin Skin exam: Present warm, dry, intact and normal color Lymphatic Lymphatic Findings: no adenopathy Medical Decision Making Medical Records Medical records reviewed: No I reviewed the patient's medical records. [place] Inquiry Pt receiving controlled substance: No
[2023-09-23 08:45] LABS: UTC Strep Screen (Rapid) Negative (Negative)
[2023-09-23 08:46] LABS: UTC Influenza A Antigen Negative (Negative); UTC Influenza B Antigen Negative (Negative)
[2023-09-23 08:51] VITALS: BP 111/69; PULSE 107; RESP 20; TEMP 36.7; O2SAT 97
== END 2023-09-23 09:14 | disposition home or self-care (01) ==
PROVIDERS: Emergency Provider Nurse Practitioner Family; PCP Internal Medicine
DX: J01.90 Acute sinusitis, unspecified (principal); R09.81 Nasal congestion; H92.03 Otalgia, bilateral; R05.9 Cough, unspecified; R07.0 Pain in throat; R53.81 Other malaise
CPT/HCPCS: 87804; 87880; 99212; 99214; G0463

== ENCOUNTER 2024-01-05 16:54 | Outpatient (CLI) | payer BC, SELFPAY ==
[2024-01-05 17:14] LABS: Basophils % 0.6 % (0.1-2.0); Eosinophils # 0.1 K/mm3 (0.0-0.4); Eosinophils % 1.1 % (0.1-12.0); Hemoglobin 13.8 g/dL (12.2-16.2); Lymphocytes # 2.1 K/mm3 (0.7-4.5); Lymphocytes % 29.9 % (10-50); Mean Corpuscular HGB Conc 32.9 g/dL (31.8-35.4); Mean Corpuscular Hemoglobin 30.6 pg (27.0-31.2); Mean Corpuscular Volume 93.2 fl (81-99); Mean Platelet Volume 8.2 fl (7.4-10.4); Monocytes # 0.4 K/mm3 (0.1-1.0); Monocytes % 5.6 % (1.7-9.3); Neutrophils # 4.3 K/mm3 (1.8-7.8); Neutrophils % 62.7 % (37.0-80.0); Platelet Count 298 K/mm3 (142-424); Red Blood Count 4.51 M/mm3 (4.20-5.40); Red Cell Distribution Width 13.4 % (11.5-17.5); White Blood Count 6.9 K/mm3 (4.8-10.8)
[2024-01-05 17:19] LABS: Chloride 103 mmol/L (98-107)
[2024-01-05 17:20] LABS: Potassium 4.5 mmoL/L (3.5-5.1); Sodium 138 mmol/L (136-145)
[2024-01-05 17:22] LABS: Alanine Aminotransferase 20 U/L (12-78); Alkaline Phosphatase 82 U/L (38-126); Anion Gap 13.5 mEq/L (5-15); Aspartate Amino Transferase 29 U/L (14-36); Bilirubin,Total 0.5 mg/dl (0.2-1.3); Blood Urea Nitrogen 18 mg/dl (7-17); Carbon Dioxide 26 mmol/L (22.0-30.0); Cholesterol 243 mg/dl (140-200); Estimated Glomerular Filt Rate 126 ml/min (>60); GFR (African American) 153 ML/MIN (>60); Triglycerides 125 mg/dl (30-150); VLDL Cholesterol 25 mg/dL (0-40)
[2024-01-05 17:23] LABS: Albumin Level 4.4 g/dl (3.5-5.0); Albumin/Globulin Ratio 1.6 (1.1-1.8); Calcium 9.7 mg/dl (8.4-10.2); Chol/HDL Ratio 3.1 (1-3.5); Globulin 2.7 g/dL (1.3-3.2); Glucose 89 mg/dl (74-100); HDL Cholesterol 79 mg/dl (40-60); Total Protein,Serum 7.1 g/dl (6.3-8.2)
[2024-01-05 17:54] LABS: Thyroid Stimulating Hormone 1.23 uIU/mL (0.465-4.68)
== END 2024-01-05 23:59 | disposition home or self-care (01) ==
LOC: LAB.DROPOF 16:55
PROVIDERS: PCP Internal Medicine; Visit Provider Internal Medicine
DX: R53.83 Other fatigue (principal); E78.5 Hyperlipidemia, unspecified; F41.9 Anxiety disorder, unspecified; K21.9 Gastro-esophageal reflux disease without esophagitis; D64.9 Anemia, unspecified; K58.2 Mixed irritable bowel syndrome; M15.0 Primary generalized (osteo)arthritis
CPT/HCPCS: 80053; 80061; 84443; 85025

== ENCOUNTER 2024-05-20 09:15 | Day surgery (SDC) | payer BC, SELFPAY ==
[2024-05-13 13:45] VITALS: BMI 29.8
[2024-05-20 09:39] VITALS: BP 147/86; PULSE 104; RESP 17; TEMP 36.1; O2SAT 98
[2024-05-20] MEDS: LACTATED RINGERS 1000ML 1,000 ML 25 ML IV (09:44)
[2024-05-20 10:34] VITALS: O2SAT 98
--- NOTE | 2024-05-20 10:40 | P.PNANES_ITS ---
[facility] Disclaimer: The information contained in this section may have been updated after the patient was seen, as this information can be updated by other users. Medical History Colonoscopy planned Normal esophagogastroduodenoscopy (EGD) Anxiety Urinary tract infection History of COVID-19 Bronchitis Endometriosis Irritable bowel syndrome (IBS) History of gastroesophageal reflux (GERD) Allergies Bunion, left foot Gestational diabetes Surgical History History of colonoscopy History of surgery H/O laparoscopy History of cholecystectomy H/O tubal ligation History of hysterectomy History of bunionectomy Family History Father Kidney disease Cancer Hypertension Sister Cancer Hypertension Mother Diabetes Stroke Grandmother Diabetes Other Family history of colon cancer in father Social History Smoking Status: Never smoker alcohol intake: never substance use type: denies use current occupational status: employed Travel in the last 8 weeks: None household members: spouse housing: house current occupation: school caffeine: Yes [facility] Anesthesia Checklist Patient Identification Patient Identification: Arm Band Structural Data Admitted From: Home Planned Operative Procedure/s: colonoscopy Consent for Planned Operative Procedure(s) Verified: Yes Verified Documents: Surgical Consent and History and Physical NPO Status Verified Time NPO: 00:00 Additional verifications Anesthesia Reactions: Yes (SEVERE NAUSEA) Hx Blood Transfusions: No Blood Transfusion Reaction: No Airway Assessment Mallampati Score:: Class II C-Spine Mobility Assessed: Yes TMJ Mobility Assessed: Yes Dentition: Good Dentition Neurological Assessment Level of Consciousness: Awake, Alert and Appropriate Anesthesia Plan Anesthesia Risk discussed: Yes Anesthesia Plan: Verified ASA Class: II Anesthesia Type: MAC
--- NOTE | 2024-05-20 10:47 | EXP.HP ---
History of Present Illness *Admission Date: 05/20/24 *Reason for visit:: High risk screening *History of present illness: Mrs. Laguerre is a 58-year-old female who is here for high risk screening colonoscopy secondary to family history. The examination is deemed medically necessary for colonoscopy. The patient has been seen, interviewed and examined prior to the procedure by both myself and the anesthesia provider. [facility] Disclaimer: The information contained in this section may have been updated after the patient was seen, as this information can be updated by other users. Medical History (Updated 05/20/24 @ 10:48 by Sarbjit Horner II, MD) Colonoscopy planned Normal esophagogastroduodenoscopy (EGD) Anxiety Urinary tract infection History of COVID-19 Bronchitis Endometriosis Irritable bowel syndrome (IBS) History of gastroesophageal reflux (GERD) Allergies Bunion, left foot Gestational diabetes Surgical History History of colonoscopy History of surgery H/O laparoscopy History of cholecystectomy H/O tubal ligation History of hysterectomy History of bunionectomy Family History Father Kidney disease Cancer Hypertension Sister Cancer Hypertension Mother Diabetes Stroke Grandmother Diabetes Other Family history of colon cancer in father Social History Smoking Status: Never smoker alcohol intake: never substance use type: denies use current occupational status: employed Travel in the last 8 weeks: None household members: spouse housing: house current occupation: school caffeine: Yes Other Medical History Have you received the Flu Vaccine for this season: No Have you received the Pneumonia Vaccine: No Review of Systems Review of Systems Review of systems (narrative): Negative *Cardiovascular Comments: Negative *Gastrointestinal Comments: Negative *Genitourinary Comments: Negative *Musculoskeletal Comments: Negative *Neurologic Comments: Negative Meds Home Medications and Allergies Home Medications ?Medication ?Instructions ?Recorded ?Confirmed ?Type fluticasone propionate 50 2 spray intranasal DAILY Breathing 10/15/20 05/20/24 History mcg/actuation nasal problems spray,suspension (Flonase Allergy Relief) montelukast 10 mg tablet 10 mg PO DAILY Breathing problems 10/15/20 05/20/24 History meloxicam 7.5 mg tablet 7.5 mg PO DAILY Pain 08/23/21 05/20/24 History omeprazole 20 mg capsule,delayed 20 mg PO DAILY stomach 08/23/21 05/20/24 History release prucalopride 2 mg tablet 2 mg PO DAILY . 10/04/21 05/20/24 History (Motegrity) duloxetine 30 mg capsule,delayed 30 mg PO DAILY #90 caps 02/13/24 05/20/24 Rx release estradiol 0.1 mg/24 hr semiweekly See Rx Instructions .Route 03/07/24 05/20/24 Rx transdermal patch (Olinda) .COMPLEX #24 patches polyethylene glycol 3350 17 17 g PO BID #1,020 grams 05/15/24 Rx gram/dose oral powder (Miralax) New Prescriptions to Start Prescriptions: Allergies Allergy/AdvReac Type Severity Reaction Status Date / Time latex [LATEX] Allergy Mild Anaphylaxis Verified 05/20/24 09:37 Penicillins [PENICILLINS] Allergy Mild Hives Verified 05/20/24 09:37 Exam Data for Last 24 hours Vital signs and Labs for Last 24 Hours: Temp Pulse Resp BP Pulse Ox O2 Del Method O2 Flow Rate 97 F L 104 H 17 147/86 H 98 Nasal Cannula 5 05/20/24 09:39 05/20/24 09:39 05/20/24 09:39 05/20/24 09:39 05/20/24 09:39 05/20/24 10:34 05/20/24 10:34 *Routine HEENT Exam Head: Present normocephalic Eye: Present EOMI and PERRL ENT: Present mucous membranes moist *Routine Neck Exam Neck: Present supple *Routine Respiratory Exam Respiratory: Present CTA bilaterally *Routine Cardiovascular Exam Cardiovascular: Present RRR *Routine Abdominal Exam Abdominal: Present soft and normoactive bowel sounds; Absent tenderness *Routine Rectal Exam Rectal:: deferred *Routine Genitalia Exam Genitalia:: deferred *Routine Extremities Exam Extremities: Absent cyanosis, clubbing or edema *Routine Skin Exam Skin: Present warm; Absent rash *Routine Neurological Exam Neurological: Present alert and oriented X3 Assessment and Plan *Assessment and plan (1) Family history of colon cancer: Status: Acute Category: Medical Code(s): Z80.0 - Family history of malignant neoplasm of digestive organs (2) Encounter for screening for colorectal cancer in high risk patient: Status: Acute Category: Medical Code(s): Z12.11 - Encounter for screening for malignant neoplasm of colon; Z12.12 - Encounter for screening for malignant neoplasm of rectum; Z91.89 - Other specified personal risk factors, not elsewhere classified Plan A/P: 1. High risk screening/family history is the preprocedural diagnosis. The patient will be anesthetized/sedated using MAC sedation. The patient has been seen and examined. Cardiac and lung assessment prior to the examination is stable. Proceed with planned colonoscopy
--- NOTE | 2024-05-20 10:48 | P.PCN_ITS ---
[facility] Procedure Note Date: 05/20/24 Time: 11:11 Procedure Note:: Colonoscopy Procedure Report: Colonoscopy Endoscopist: Sarbjit Horner II, MD Referring physician: Baljinder Meier MD Date of Procedure: May 20, 2024 Equipment: Olympus 190 variable stiffness pediatric colonoscope Sedation: MAC sedation Indication: Mrs. Laguerre is a 58-year-old female who is here for high risk screening/surveillance colonoscopy secondary to a strong family history of colon cancer. Her father had colon cancer in his mid 50s and her maternal grandfather had colon cancer also in his 50s. The patient has had routine surveillance colonoscopies in December 2001, May 2008, May 2014 and her last colonoscopy was May 2019. She has never had any adenomatous colon polyps removed. The patient does have chronic idiopathic constipation and is doing very well with combined Motegrity and Citrucel. The patient reports no rectal bleeding, abdominal pain, weight loss or change in bowel habits. Procedure: Prior to the procedure, a history and physical exam was performed, and patient's medications and allergies were reviewed. The risks, benefits and alternatives of the sedation and procedure were discussed with the patient. All questions were answered and informed consent was obtained. The patient was brought to the procedure room. Patient identification and proposed procedure were verified by the physician and the nurse. The patient was placed in a left lateral decubitus position and the scope was passed under direct vision. Throughout the procedure, the patient's blood pressure, pulse, and oxygen saturations were monitored continuously. The colonoscopy was accomplished without difficulty. The patient tolerated the procedure well. Findings: On digital rectal examination there was normal rectal tone. There were no external hemorrhoids. The colonoscope was introduced through the anal canal to the rectum and advanced to the cecum. The ileocecal valve and appendiceal orifice were identified. The scope was advanced a short distance into the ileum which appeared grossly normal. The scope was then withdrawn into the colon. The cecum, ascending and transverse colon and mucosa were grossly normal. There were scattered diverticuli throughout the descending and sigmoid colon (LEFT colon). The rectum itself was normal. Upon retroflexion within the rectum there were grade 1 internal hemorrhoids. The preparation was excellent throughout with [place] Preparation Score of 7?8 out of 9. The cecal time was 10 minutes. Impression: 1. Left-sided diverticulosis 2. Grade 1 internal hemorrhoids Plan: I would continue Motegrity and Citrucel on a maintenance basis. Based upon her high risk family history, I would recommend repeat surveillance colonoscopy in 5 years.
[2024-05-20 11:10] VITALS: BP 107/57; PULSE 80; RESP 16; TEMP 36.8; O2SAT 94
[2024-05-20 11:23] VITALS: BP 139/69; PULSE 81; RESP 16; O2SAT 98
[2024-05-20 11:40] VITALS: BP 121/67; PULSE 84; RESP 16; O2SAT 99
== END 2024-05-20 11:49 | disposition home or self-care (01) ==
PROVIDERS: PCP Internal Medicine; Visit Provider Internal Medicine Gastroenterology
PROC: (CPT G0121; principal; 2024-05-20 11:00)
DX: Z80.0 Family history of malignant neoplasm of digestive organs (principal); Z12.11 Encounter for screening for malignant neoplasm of colon; Z12.12 Encounter for screening for malignant neoplasm of rectum; Z91.89 Other specified personal risk factors, not elsewhere classified; K57.30 Diverticulosis of large intestine without perforation or abscess without bleeding; K64.0 First degree hemorrhoids
CPT/HCPCS: G0121; J7120

== ENCOUNTER 2024-06-06 15:39 | Outpatient (CLI) | payer BC, SELFPAY ==
--- NOTE | 2024-06-06 15:39 | MM_ITS ---
PROCEDURE INFORMATION: Exam: MG Bilateral Screening 3D Mammography Exam date and time: 06/06/2024 3:41 PM Age: 58 years old Clinical indication: Screening exam TECHNIQUE: Imaging protocol: Bilateral Screening tomosynthesis and 2D mammography including computer-aided detection (CAD) when performed. COMPARISON: 1. MG MM DIG SCREENING MAMM BI W/CAD 06/05/2023 3:50 PM 2. MG MM DIG SCREENING MAMM BI W/CAD 06/01/2022 3:37 PM FINDINGS: MAMMOGRAPHY: Breast composition: There are scattered areas of fibroglandular density. Mass: No suspicious masses. Architectural distortion: None. Calcifications: No suspicious calcifications. Asymmetric density: None. Skin thickening: None. Axillary adenopathy: None. IMPRESSION: No mammographic evidence of malignancy. Annual screening is recommended unless otherwise clinically indicated. ASSESSMENT: BI-RADS Category 1: Negative.
== END 2024-06-06 23:59 | disposition home or self-care (01) ==
LOC: RAD 15:39
PROVIDERS: PCP Internal Medicine; Visit Provider Nurse Practitioner Obstetrics & Gynecology
DX: Z12.31 Encounter for screening mammogram for malignant neoplasm of breast (principal)
CPT/HCPCS: 77063; 77067

== ENCOUNTER 2025-04-17 17:30 | Outpatient (CLI) | payer BC, SELFPAY ==
--- OUTSIDE RECORDS SUMMARY | 2025-01-18 17:30 | XMS_ITS ---
Author Organization [facility] Address [address] [place] [address] Care Team Providers Care Care Partner Name Role Phone Migration, Provider Unavailable Unavailable Allergies Allergen (clinical drug ingredient) Drug/Non Drug Allergy documented on EMR Reaction Allergy Type Onset Date Status penicillin V Penicillin V Potassium Unknown Drug Allergy Active REAS[facility] VISIT [facility] Encounter Medications Medication SIG (Take, Route, Frequency, Duration) Notes Start Date End Date Status Estradiol 0.1 MG/24 HOURS TWICE WEEKLY FILM, EXTENDED RELEASE 1 PATCH APPLIED TOPICALLY 2 TIMES A WEEK; Duration: 30 DAY(S) *Please review and pick correct strength-formulatio n from [employer] options. If intended option is not shown, [...] review and pick correct strength-formulatio n from Quantum Imag[employer]pan options. If intended option is not shown, discontinue and re-order from Quick Search* Active Meloxicam 7.5 MG Tablet 1 tab(s) orally once a day; Duration: 30 day(s) Active Motegrity 2 MG Tablet 1 tab(s) orally once a day; Duration: 30 day(s) Active Encounters Encounter Location Date Provider Diagnosis [facility] [address] [place] [address] 01/18/2025 Provider Migration Plan Of Treatment No Information Progress Notes * LAGUERREEmeli Corcroan CDOB:1965 (59 yo F)Acc No.[id number]:01/18/2025 Patient: Emeli Jordan Provider: :1965 A ge:59 Y S ex:Female Date:01/18/2025 Address:[facility] [address], [place], [id number] Subjective: * Chief Complaints: * [facility] * Medications: T akingPropranolol HCl 10 MG Tablet 1 tab(s) orally once a day in am prn Estradiol 0.1 MG/24 HOURS TWICE WEEKLY FILM, EXTENDED RELEASE 1 PATCH APPLIED TOPICALLY 2 TIMES A WEEK , Notes to Pharmacist: *Please review and pick correct strength-formulation from [employer] options. If intended option is not shown, [...] *Please review and pick correct strength-formulation from [employer] options. If intended option is not shown, [...] *Please review and pick correct strength-formulation from [employer] options. If intended option is not shown, [...] *Please review and pick correct strength-formulation from [employer] options. If intended option is not shown, [...] Electronic signature of Prov ider Migration on 04/18/2025 at 11:14 AM EDT Sign off status: Pending * Provider: Date: 0 01/18/2025 Generated for Aishwarya fitzgerald/Kristina/Vianey on: 04/18/2025 11:14 AM EDT
--- OUTSIDE RECORDS SUMMARY | 2025-03-31 15:30 | XMS_ITS | Encounter Summary ---
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); Chronic bilateral low back pain without sciatica; Restless leg syndrome; Left hip pain Social History Tobacco Use Types Packs/Day Years Used Date Smoking Tobacco: Never Smokeless Tobacco: Never Tobacco Cessation:Counseling Given: Not Answered Alcohol Use Standard Drinks/Week Comments Not Currently 0 (1 standard drink = 0.6 oz pur e alcohol) Comments Unknown Sex and Gender Information Value Date Recorded Sex Assigned at Not on file Legal Sex Female 12:40 PM EDT Gender Identity Not on file Sexual Orientation Not on file documented as of this encounter Last Filed Vital Signs Vital Sign Reading Time Taken Comments Blood Pressure 120/82 03/31/2025 3:05 PM EDT Pulse 100 03/31/2025 3:05 PM EDT Temperature 36.7 C (98 F) 03/31/2025 3:05 PM EDT Respiratory Rate - - Oxygen Saturation - - Inhaled Oxygen Concentration - - Weight 94.2 kg (207 lb 9.6 oz) 03/31/2025 3:05 P M EDT Height 177.8 cm (5' 10 ) 03/31/2025 3:05 PM EDT Body Mass Index 29.79 03/31/2025 3:05 PM EDT documented in this encounter Progress Notes * Daphne Bennett APRN - 03/31/2025 3:30 PM EDTAssociated Problem(s): Multiple joint pain Onset 12/30-Transient Swelling in the right second and third MCP with tenderness in the third MCP. Resolved. 01/2019 Rheumatoid factor and CCP negative. CRP and sedimentation rate normal. Positive antinuclear antibody with negative subtypes and negative crithidia double-stranded DNA. 12/2018 Hand x-ray reported as normal Plaquenil started 2022. No benefit at 6 months so discontinued 02/2023. She is feeling the same Reviewed labs 09/2024 No evidence of synovitis, however she reports swelling at times. Pt global is 2/10 and VAS 2/10. She continued Meloxican, she did not like Celebrex as well. Check labs today RTC 6 months or sooner if needed * Daphne Bennett APRN - 03/31/2025 3:30 PM EDTAssociated Problem(s): Positive CADEN (antinuclear antibody) 1:640 speckled. Crithidia double-stranded DNA, complements, and antinuclear antibody subtypes all normal or negative. Evaluation by a bar gauger and lubricator tender in the past for positive antinuclear antibody was unremarkable. No history suggestive of antinuclear antibody associated autoimmune disease so far. She does report she noticed some rash on her face at times. Recommend she discuss with dermatology. Compliments and DsDNA were negative 09/2024 * Daphne Bennett APRN - 03/31/2025 3:30 PM EDTAssociated Problem(s): nursing home (current) use of non-steroidal anti-inflammatories (nsaid) Meloxicam PRN Risks of nonsteroidal anti-inflammatory drugs discussed including GI upset, GI bleeding, renal and hepatic risk, and the risks of cardiovascular disease. Warned not to take with other NSAIDs including [id number] NSAIDs. No toxicity. * Daphne Bennett APRN - 03/31/2025 3:30 PM EDTAssociated Problem(s): Chronic bilateral low back pain without sciatica X-ray shows spondylolisthesis. She has done physical therapy in the past and has done well. Stable. * Daphne Bennett APRN - 03/31/2025 3:30 PM EDTAssociated Problem(s): Restless leg syndrome Intolerant of Requip. Can try compression stockings- she may try in the winter. * Daphne Bennett APRN - 03/31/2025 3:30 PM EDTAssociated Problem(s): Left hip pain Mild tenderness to bilateral bursa. * Daphne Bennett APRN - 03/31/2025 3:30 PM EDT Images from the original note were not included. Office Follow Up Date: 03/31/2025 Patient Name: Emeli Laguerre Date of : 1965 Referring Physician: No ref. provider found Chief Complaint: Joint pain. History of Present Illness: Emeli Laguerre is a 59 y.o. female who is here today for follow up on joint pain. She reports she is doing the same Today she rates her pain 2/10. She has 10 minutes a day of morning stiffness. She does note she has had to take her meloxicam often and admits to having to take two doses in oneday due to increased pain. Stopped Plaquenil summer 2022 as she did not have benefit with it. No worsening off it either. She reports all over pain, hips and hands are the worst. Exercise helps but she has a hard time finding the time to do this. Subjective Review of Systems: Review of Systems Gastrointestinal: Positive for constipation. Medications: Current Outpatient Medications: DULoxetine (CYMBALTA) 60 MG capsule, Take 1 capsule by mouth Daily., Disp: , Rfl: fluticasone (FLONASE) 50 MCG/ACT nasal spray, Administer 2 sprays into the nostril(s) as directed by provider Daily., Disp: , Rfl: hyoscyamine (ANASPAZ,LEVSIN) 0.125 MG tablet, Take 1 tablet by mouth As Needed., Disp: , Rfl: Linzess 290 MCG capsule capsule, Take 1 capsule by mouth Daily., Disp: , Rfl: meclizine (ANTIVERT) 25 MG tablet, Take 1 tablet by mouth 3 (Three) Times a Day As Needed., Disp: ,Rfl: meloxicam (MOBIC) 15 MG tablet, Take 1 tablet by mouth Daily. Take 1 tablet by oral route every day, Disp: 90 tablet, Rfl: 1 omeprazole (priLOSEC) 20 MG capsule, Take 1 capsule by mouth Daily., Disp: , Rfl: polyethylene glycol (MiraLax) 17 g packet, Take 17 g by mouth Daily. TAKE DIRECTED, Disp: , Rfl: Prucalopride Succinate (Motegrity) 1 MG tablet, Take 1 tablet by mouth Daily., Disp: , Rfl: Allergies: Allergies Allergen Reactions Penicillins Provider Review Needed Acetaminophen Unknown - Low Severity Hydrocodone Unknown - Low Severity Latex Hives and Rash I have reviewed and updated the patient's chief complaint, history of present illness, review of systems, past medical history, surgical history, family history, social history, medications and allergy list as appropriate. Objective Vital Signs: Vitals: 03/31/25 1505 BP: 120/82 Pulse: 100 Temp: 98 ??F (36.7 ??C) Weight: 94.2 kg (207 lb 9.6 oz) Height: 177.8 cm (70 ) PainSc: 2 Body mass index is 29.79 kg/m??. Defer to PCP Physical Exam: GENERAL: The patient is well-developed and well-nourished. Cooperative and oriented ??3. Affect is normal. Hydration appears normal. HEENT: Normocephalic and atraumatic. No notable alopecia. No facial rash. Lids and conjunctiva are normal. Pupils are equal and sclera are clear. I see no oral or nasal ulcers. Lips teeth and gums are within normal limits. Oropharynx is clear. NECK: Neck is supple without adenopathy, masses, or thyromegaly. CARDIOVASCULAR: Normal rate and rhythm. No murmur. ABDOMEN: Not examined. LUNGS: Normal effort. Lungs CTA. EXTREMITIES: No edema. No cyanosis or clubbing. SKIN: Palpation and inspection are normal. NEUROLOGIC: Gait is normal. MUSCULOSKELETAL: Complete joint exam was performed. There is full range of motion of the shoulders,elbows, wrists, and hands without notable deformities, soft tissue swelling, synovitis, or atrophy except as noted. She has no overt synovitis. Both trochanters are tender. There is crepitus of bilateral knees. Knees have no palpable effusions. There is full flexion and full extension of the knees without pain. Ankles have no soft tissue swelling or synovitis or major deformities. BACK: Straight without notable scoliosis. Assessment / Plan Assessment & Plan Multiple joint pain Onset 12/30-Transient Swelling in the right second and third MCP with tenderness in the third MCP. Resolved. 01/2019 Rheumatoid factor and CCP negative. CRP and sedimentation rate normal. Positive antinuclear antibody with negative subtypes and negative crithidia double-stranded DNA. 12/2018 Hand x-ray reported as normal Plaquenil started 2022. No benefit at 6 months so discontinued 02/2023. She is feeling the same Reviewed labs 09/2024 No evidence of synovitis, however she reports swelling at times. Pt global is 2/10 and VAS 2/10. She continued Meloxican, she did not like Celebrex as well. Check labs today RTC 6 months or sooner if needed Positive CADEN (antinuclear antibody) 1:640 speckled. Crithidia double-stranded DNA, complements, and antinuclear antibody subtypes all normal or negative. Evaluation by a bar gauger and lubricator tender in the past for positive antinuclear antibody was unremarkable. No history suggestive of antinuclear antibody associated autoimmune disease so far. She does report she noticed some rash on her face at times. Recommend she discuss with dermatology. 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 Warned not to take with other NSAIDs including [id number] NSAIDs. No toxicity. Chronic bilateral low back pain without sciatica X-ray shows spondylolisthesis. She has done physical therapy in the past and has done well. Stable. Restless leg syndrome Intolerant of Requip. Can try compression stockings- she may try in the winter. Left hip pain Mild tenderness to bilateral bursa. I attest that the documentation was copied from a previous note but is still current and accurate. Follow Up: No follow-ups on file. Daphne Bennett APRN [facility] [place] documented in this encounter Plan of Treatment Upcoming Encounters Date Type Department Care Team (Late Contact Info) Description 10/01/2025 2:00 PM EST Office Visit [facility]Y 330 [facility] [place] [address] Jason Stevens MD 330 [facility] [address] [place], [place] [phone] documented as of this encounter Procedures Procedure Name Priority Date/Time Associated Diagnosis Comments SEDIMENTATION RATE Routine 03/31/2025 3: 45 PM EDT Multiple joint pain Positive CADEN (antinuclear antibody) CBC (NO DIFF) Routine 03/31/2025 3:45 PM EDT Multiple joint pain Positive CADEN (antinuclear antibody) C-REACTIVE PROTEIN Routine 03/31/2025 3: 45 PM EDT Multiple joint pain Positive CADEN (antinuclear antibody) MAGNESIUM Routine 03/31/2025 3:45 PM EDT Multiple joint pain COMPREHENSIVE METABOLIC PANEL Routine 03/31/2025 3:45 PM EDT Multiple joint pain Positive CADEN (antinuclear antibody) documented in this encounter Results * Magnesium (03/31/2025 3:45 PM EDT) Magnesium 2.2 1.6 - 2.3 mg/dL [facility] Blood 03/31/2025 3:45 PM EDT 03/31/2025 Narrative [facility] ([facility]ORY) - 04/01/2025 8:07 AM EDT Performed at: 01 - [address] [id number] Dynamometer Mechanic: Chris Mustafa PhD, Phone: [phone] Patient Fasting: N us Daphne Bennett APRN LAB BLOOD ORDERABLES Final Result [facility] (AMBULATORY) [address] [place] [address], [facility] [address] [place] [address], * CBC (No Diff) (03/31/2025 3:45 PM EDT) WBC 6.9 3.4 - 10.8 x10E3/uL [facility] RBC 4.56 3.77 - 5.28 x10E6/uL [facility] Hemoglobin 13.8 11.1 - 15.9 g/dL [facility] Hematocrit 42.7 34.0 - 46.6 % [facility] MCV 94 79 - 97 fL [facility] MCH 30.3 26.6 - 33.0 pg [facility] MCHC 32.3 31.5 - 35.7 g/dL [facility] RDW 12.9 11.7 - 15.4 % [facility] Platelets 305 150 - 450 x10E3/uL [facility] Blood 03/31/2025 3:45 PM EDT 03/31/2025 Narrative [facility] [facility] (AMBULATORY) - 04/01/2025 8:07 AM EDT Performed at: [address] [place] [address] [address] [place], [place] [id number] Dynamometer Mechanic: Chris Mustafa PhD, Phone: [phone] Patient Fasting: N Daphne Bennett APRN LAB BLOOD ORDERABLES Final Result [facility] (AMBULATORY) [address] [place] [address], [facility] [address] [place] [address], * Sedimentation Rate (03/31/2025 3:45 PM EDT) Sed Rate 2 0 - 40 mm/hr [facility] Blood 03/31/2025 3:45 PM EDT 03/31/2025 Narrative [facility] [employer] (AMBULATORY) - 04/01/2025 8:07 AM EDT Performed at: [facility] [address] [place], [place] [id number] Dynamometer Mechanic: Chris Mustafa PhD, Phone: [phone] Patient Fasting: N Daphne Bennett APRN LAB BLOOD ORDERABLES Final Result Performing Organization Address [facility] [address]/ZIP Co de Phone Number [facility] [address] [place] [address], [place] [phone] [facility] [address] [place] [address], [place] [phone] * C-reactive Protein (03/31/2025 3:45 PM EDT) C-Reactive Protein 1 0 - 10 mg/L [facility] Blood 03/31/2025 3:45 PM EDT 03/31/2025 Narrative [facility] - 04/01/2025 8:07 AM EDT [facility]formed at: [facility] [address] [place], [place] [id number] Dynamometer Mechanic: Chris Mustafa PhD, Phone: [phone] Patient Fasting: N Daphne Bennett APRN LAB BLOOD ORDERABLES Final Result Performing Organization Address [facility] [address]/ZIP Co de Phone Number [facility] [address] [place] [address], [place] [phone] [facility] [address] [place] [address], [place] [phone] * (ABNORMAL) Comprehensive Metabolic Panel (03/31/2025 3:45 PM EDT) Glucose 93 70 - 99 mg/dL [facility] BUN 20 8 - 27 mg/dL [facility] Creatinine 0.63 0.57 - 1.00 mg/dL [facility] EGFR Result 101 >59 mL/min/1.7 3 [facility] BUN/Creatinine Ratio 32(H) 12 - 28 [facility] Sodium 141 134 - 144 mmol/L [facility] Potassium 4.4 3.5 - 5.2 mmol/L [facility] Chloride 103 96 - 106 mmol/L [facility] Total CO2 23 20 - 29 mmol/L [facility] Calcium 9.6 8.7 - 10.3 mg/dL [facility] Total Protein 7.1 6.0 - 8.5 g/dL [facility] Albumin 4.8 3.8 - 4.9 g/dL [facility] Globulin 2.3 1.5 - 4.5 g/dL [facility] Total Bilirubin 0.4 0.0 - 1.2 mg/dL [facility] Alkaline Phosphatase 75 44 - 121 IU/L [facility] AST (SGOT) 20 0 - 40 IU/L [facility] ALT (SGPT) 15 0 - 32 IU/L [facility] Blood 03/31/2025 3:45 PM EDT 03/31/2025 Narrative [facility] ([facility]) - 04/01/2025 8:07 AM EDT [facility]formed [facility]: [facility] [address] [place], [place] [id number] Dynamometer Mechanic: Chris Mustafa PhD, Phone: [phone] Patient Fasting: N us Daphne Bennett THERMOCOUPLE TESTER LAB BLOOD ORDERABLES Final Result Performing Organization Address City/State/[facility] Co de Phone Number [facility] (AMBULATORY) [address] [place] [address], [place] [phone] [facility] [address] [place] [address], [place] [phone] documented in this encounter Visit Diagnoses Diagnosis Multiple joint pain- Primary Pain in joint, multiple sites Positive CADEN (antinuclear antibody) Other and unspecified nonspecific immunological findings nursing home (current) use of non-steroidal anti-inflammatories (nsaid) Chronic bilateral low back pain without sciatica Restless leg syndrome Restless legs syndrome (RLS) Left hip pain Pain in joint, pelvic region and thigh documented in this encounter Care Teams Director Of Teaching And Learning Relationship Specialty Start Date End Date Baljinder Meier MD [address] [place] [address] PCP - General Internal Medicine 03/14/24 documented as of this encounter
[2025-04-17 19:06] LABS: Alanine Aminotransferase 20 U/L (12-78); Albumin Level 4.7 g/dl (3.5-5.0); Albumin/Globulin Ratio 1.7 (1.1-1.8); Alkaline Phosphatase 75 U/L (38-126); Anion Gap 13.8 mEq/L (5-15); Aspartate Amino Transferase 28 U/L (14-36); Bilirubin,Total 0.6 mg/dl (0.2-1.3); Blood Urea Nitrogen 25 mg/dl (7-17); Calcium 9.6 mg/dl (8.4-10.2); Carbon Dioxide 28 mmol/L (22.0-30.0); Chloride 103 mmol/L (98-107); Cholesterol 273 mg/dl (140-200); Creatinine,Serum 0.50 mg/dl (0.52-1.04); Estimated Glomerular Filt Rate 126 ml/min (>60); GFR (African American) 152 ML/MIN (>60); Globulin 2.7 g/dL (1.3-3.2); Glucose 84 mg/dl (74-100); HDL Cholesterol 61 mg/dl (40-60); Potassium 4.8 mmoL/L (3.5-5.1); Sodium 140 mmol/L (136-145); Total Protein,Serum 7.4 g/dl (6.3-8.2); Triglycerides 168 mg/dl (30-150)
--- OUTSIDE RECORDS SUMMARY | 2025-04-18 11:14 | XMS_ITS | Encounter Summary ---
[facility] Address [address] [place] [address] Care Team Providers Care Dull Coat Mill Operator Name Role Phone Baljinder Meier MD Primary Care Provider [phone] Encounter Details Date Type Department Care Team (Late Contact Info) Description 04/01/2025 Results Follow-Up [facility] RHEUMATOLOGY [address] [address] Daphne Bennett APRN [address] [place] [id number] Social History Tobacco Use Types Packs/Day Years Used Date Smoking Tobacco: Never Smokeless Tobacco: Never Alcohol Use Standard Drinks/Week Comments Not Currently 0 (1 standard drink = 0.6 oz pur e alcohol) Comments Unknown Sex and Gender Information Value Date Recorded Sex Assigned at Not on file Legal Sex Female 12:40 PM EDT Gender Identity Not on file Sexual Orientation Not on file documented as of this encounter Plan of Treatment Upcoming Encounters Date Type Department Care Team (Late Contact Info) Description 10/01/2025 2:00 PM EST Office Visit [facility] RHEUM[facility]Y [address] [address] Jason Stevens MD [address] [phone] documented as of this encounter Visit Diagnoses Not on filedocumented in this encounter Care Teams Dull [employer]at [employer] Operator Relationship Specialty Start Date End Date Baljinder Meier MD [address] [facility] [address] [place] [address] PCP - General Internal Medicine 03/14/24 documented as of this encounter
--- OUTSIDE RECORDS SUMMARY | 2025-04-18 11:14 | XMS_ITS | Clinical Summary ---
Author Organization [facility] Address [address] [place] [address] Care Team Providers Care Results Engineer Name Role Phone Baljinder Meier MD Primary Care Provider [phone] Allergies Active Allergy Reactions Criticality Noted Date Comments Acetaminophen Unknown - Low Severity Low 10/17/2022 Hydrocodone Unknown - Low Severity Low 10/17/2022 Latex Hives,Rash Low 03/13/2024 Penicillins Provider Review Needed 03/13/2024 Medications polyethylene glycol (MiraLax) 17 g packet Take 17 g by mouth Daily. TAKE DIRECTED Active Prucalopride Succinate (Motegrity) 1 MG tablet Take 1 tablet by mouth Daily. Active DULoxetine (CYMBALTA) 60 MG capsule Take 1 capsule by mouth Daily. 4 Active fluticasone (FLONASE) 50 MCG/ACT nasal spray Administer 2 sprays into the nostril(s) as directed by provider Daily. 4 Active omeprazole (priLOSEC) 20 MG capsule Take 1 capsule by mouth Daily. 4 Active hyoscyamine (ANASPAZ,LEVSI N) 0.125 MG tablet Take 1 tablet by mouth As Needed. Active Linzess 290 MCG capsule capsule Take 1 capsule by mouth Daily. Active meclizine (ANTIVERT) 25 MG tablet Take 1 tablet by mouth 3 (Three) Times a Day As Needed. 5 Active meloxicam (MOBIC) 15 MG tablet Take 1 tablet by mouth Daily. Take 1 tablet by oral route every day 90 tablet 1 5 Active estradiol (CLIMARA) 0.025 MG/24HR patch Place 1 patch on the skin as directed by provider. APPLY 1 PATCH 2 TIMES EVERY WK CYCLICALLY 3 WKS ON AND 1 WK OFF 025 Discontinue d(Patient Reported Not Taking) montelukast (SINGULAIR) 10 MG tablet Take 1 tablet by mouth Every Night. 025 Discontinue d(Patient Reported Not Taking) celecoxib (CeleBREX) 200 MG capsule Take 1 capsule by mouth 2 (Two) Times a Day As Needed for Mild Pain. 60 capsule 5 5 025 Discontinue d(Patient Reported Not Taking) methylPREDNISo lone (MEDROL) 4 MG dose pack Take as directed on package instructions. 1 each 5 025 Discontinue d(Patient Reported Not Taking) meloxicam (MOBIC) 15 MG tablet Take 1 tablet by mouth Daily. Take 1 tablet by oral route every day 90 tablet 1 5 025 Discontinue d(Reorder) Active Problems Problem Noted Date Diagnosed Date Anxiety disorder 09/20/2024 Depression 09/20/2024 Hyperlipidemia 09/20/2024 Multiple joint pain 03/13/2024 Assessment & Plan (03/31/2025 3:42 PM EDT): Onset 12/30-Transient Swelling in the right second [...] RTC 6 months or sooner if needed Assessment & Plan (09/20/2024 2:48 PM EST): Onset 12/30-Transient Swelling in the right second and third MCP with tenderness in the third MCP. Resolved. 01/2019 Rheumatoid factor and CCP negative. CRP and sedimentation rate normal. Positive antinuclear antibody with negative subtypes and negative crithidia double-stranded DNA. 12/2018 Hand x-ray reported as normal Plaquenil started 2022. No benefit at 6 months so discontinued 02/2023. She is feeling worse No evidence of synovitis. Pt global is 7/10 and VAS 6/10. Stop meloxicam and start Celebrex BID PRN Check labs today RTC 6 months or sooner if needed Assessment & Plan (03/14/2024 2:23 PM EDT): Onset 12/30-Transient Swelling in the right second and third MCP with tenderness in the third MCP. Resolved. 01/2019 Rheumatoid factor and CCP negative. CRP and sedimentation rate normal. Positive antinuclear antibody with negative subtypes and negative crithidia double-stranded DNA. 12/2018 Hand x-ray reported as normal Plaquenil started 2022. No benefit at 6 months so discontinued 02/2023. She is exercising and feeling much better. No evidence of swelling or synovitis. Pt global is 2/10 and VAS 0/10. Continue Meloxicam 7.5mg daily as needed. Check labs. RTC 6 months or sooner if needed Positive CADEN (antinuclear antibody) 03/13/2024 Assessment & Plan (03/31/2025 3:33 PM EDT): 1:640 speckled. Crithidia double-stranded DNA, complements, and antinuclear antibody subtypes all normal or negative. Evaluation by a tar distributor operator in the past for positive antinuclear antibody was unremarkable. No history suggestive of antinuclear antibody associated autoimmune disease so far. She does report she noticed some rash on her face at times. Recommend she discuss with dermatology. Compliments and DsDNA were negative 09/2024 Assessment & Plan (09/20/2024 2:15 PM EST): 1:640 speckled. Crithidia double-stranded DNA, complements, and antinuclear antibody subtypes all normal or negative. Evaluation by a tar distributor operator in the past for positive antinuclear antibody was unremarkable. No history suggestive of antinuclear antibody associated autoimmune disease so far. She does report she noticed some rash on her face at times. Recommend she discuss with dermatology. I will also check complements and dsDNA Assessment & Plan (03/14/2024 2:23 PM EDT): 1:640 speckled. Crithidia double-stranded DNA, complements, and antinuclear antibody subtypes all normal or negative. Evaluation by a tar distributor operator in the past for positive antinuclear antibody was unremarkable.. No history suggestive of antinuclear antibody associated autoimmune disease so far. We will watch her over time Restless leg syndrome 03/13/2024 Assessment & Plan (03/31/2025 3:42 PM EDT): Intolerant of Requip. Can try compression stockings- she may try in the winter. Assessment & Plan (09/20/2024 2:48 PM EST): Intolerant of Requip. Can try compression stockings Assessment & Plan (03/13/2024 1:31 PM EDT): Intolerant of Requip. Left hip pain 03/13/2024 Assessment & Plan (03/31/2025 3:42 PM EDT): Mild tenderness to bilateral bursa. Assessment & Plan (09/20/2024 2:48 PM EST): Still with bursitis pain. Consider PT or injection. Assessment & Plan (03/14/2024 2:23 PM EDT): Resolved with exercise. FPC (current) use of n on-steroidal anti-inflammatories (nsaid) 03/13/2024 Assessment & Plan (03/31/2025 3:42 PM EDT): Meloxicam PRN Risks of nonsteroidal anti-inflammatory drugs discussed including GI upset, GI bleeding, renal and hepatic risk, and the risks of cardiovascular disease. Warned not to take with other NSAIDs including aicr-sbg-mmewrbq NSAIDs. No toxicity. Assessment & Plan (09/20/2024 2:15 PM EST): Celebrex PRN Risks of nonsteroidal anti-inflammatory drugs discussed including GI upset, GI bleeding, renal and hepatic risk, and the risks of cardiovascular disease. Warned not to take with other NSAIDs including shiz-cfs-xwrtweh NSAIDs. No toxicity. Assessment & Plan (03/14/2024 2:23 PM EDT): Meloxicam prn Risks of nonsteroidal anti-inflammatory drugs discussed including GI upset, GI bleeding, renal and hepatic risk, and the risks of cardiovascular disease. Warned not to take with other NSAIDs including hqlf-xvh-ybwiumq NSAIDs. No toxicity. Chronic bilateral low back pain without sciatica 03/13/2024 Assessment & Plan (03/31/2025 3:42 PM EDT): X-ray shows spondylolisthesis. She has done physical therapy in the past and has done well. Stable. Assessment & Plan (09/20/2024 2:15 PM EST): X-ray shows spondylolisthesis. She has done physical therapy in the past and has done well. Has been worse lately Medrol pack sent today Consider PT again if persists Change NSAID to Celebrex Assessment & Plan (03/13/2024 1:31 PM EDT): X-ray shows spondylolisthesis. She has done physical therapy in the past and has done well. Encounters Date Type Department Care Team Description 04/01/2025 Results Follow-Up [facility] [address] [address] Daphne Bennett APRN 03/31/2025 3:30 PM EDT Office Visit [facility] [address] [address] Daphne Bennett APRN Multiple joint pain (Primary Dx); Positive CADEN (antinuclear antibody); watermaster (current) use of non-steroidal anti-inflammatories (nsaid); Chronic bilateral low back pain without sciatica; Restless leg syndrome; Left hip pain 03/31/2025 Travel from Last 3 Months Immunizations Immunization Administration Dates Next Due COVID-19 (UNSPECIFIED) 09/01/2020 Family History Medical History Relation Name Comments Hypertension Brother Lung cancer Brother Colon cancer Father Alzheimer's disease Mother Diabetes Mother Relation Name Status Comments Brother Father Mother Social History Tobacco Use Types Packs/Day Years [...] on file Sexual Orientation Not on file Last Filed Vital Signs Vital Sign Reading [...] Mass Index 29.79 03/31/2025 3:05 PM EDT Plan of Treatment Upcoming Encounters Date Type Department Care Team (Late st Contact Info) Description 10/01/2025 2:00 PM EST Office Visit [facility] [address] [phone] Jason Stevens MD [address] [address] Health Maintenance Due Date Last Done Comments Annual Gynecologic Pelvic an d Breast Exam 1964 LIPID PANEL 1964 TDAP/TD VACCINES (1 - Tdap) 1983 MAMMOGRAM 2004 COLOGUARD 2009 COLON CANCER SCREENING 5 YEA R SIGMOIDOSCOPY 2009 COLONOSCOPY [address] CANCER SCREENING 2009 [address] COLONOGRAPHY 2009 FECAL OCCULT BLOOD TEST 2009 FIT Testing (1 year) 2009 Pneumococcal Vaccine 50+ (1 of 1 - PCV) 2014 ZOSTER VACCINE (1 of 2) 2014 ANNUAL PHYSICAL 03/13/2024 HEPATITIS C SCREENING 03/13/2024 COVID-19 Vaccine ( season) 2025 10/02/2020, 09/02/2020, 09/01/2020 INFLUENZA VACCINE 05/14/2025 06/03/2020, , 06/08/2018 Procedures Procedure Name Priority Date/Time Associated Diagnosis Comments MAGNESIUM Routine 03/31/2025 3:45 PM EDT Multiple joint pain CBC (NO DIFF) Routine 03/31/2025 3:45 PM EDT Multiple joint pain Positive CADEN (antinuclear antibody) SEDIMENTATION RATE Routine 03/31/2025 3: 45 PM EDT Multiple joint pain Positive CADEN (antinuclear antibody) C-REACTIVE PROTEIN Routine 03/31/2025 3: 45 PM EDT Multiple joint pain Positive CADEN (antinuclear antibody) COMPREHENSIVE METABOLIC PANEL Routine 03/31/2025 3:45 PM EDT Multiple joint pain Positive CADEN (antinuclear antibody) from Last 3 Months Results * Sedimentation Rate (03/31/2025 3:45 PM EDT) Sed Rate 2 0 - 40 mm/hr [facility] Blood 03/31/2025 3:45 PM EDT 03/31/2025 Narrative [facility] ([facility]) - 04/01/2025 8:07 AM EDT Performed at: 01 - [address] [id number] Data Sme: Chris Mustafa PhD, Phone: [phone] Patient Fasting: N us Daphne Bennett BOTTOMING ROOM INSPECTOR LAB BLOOD ORDERABLES Final Result [facility] [facility] (AMBULATORY) [address] [place] [address], [place] [phone] [facility] [address] [place] [address], * CBC (No Diff) (03/31/2025 3:45 PM EDT) Pathologist [facility] WBC 6.9 3.4 - 10.8 x10E3/uL [facility] [...] 03/31/2025 3:45 PM EDT 03/31/2025 Narrative [facility] [employer] [facility] ([facility]) - 04/01/2025 8:07 AM EDT Performed at: [facility] - [facility] [address] [place], [place] [id number] Data Sme: Chris Mustafa PhD, Phone: [phone] Patient Fasting: N Daphne Bennett APRN LAB BLOOD ORDERABLES Final Result [facility] (AMBULATORY) [address] [place] [address], [place] [phone] [facility] [address] [place] [address], [place] [phone] * C-reactive Protein (03/31/2025 3:45 PM EDT) [facility] C-Reactive Protein 1 0 - 10 mg/L [facility] Blood 03/31/2025 3:45 PM EDT 03/31/2025 Narrative [facility] ([facility]) - 04/01/2025 8:07 AM EDT [facility]formed [facility]: - [facility] [address] [place], [place] [id number] Data Sme: Chris Mustafa PhD, Phone: [phone] Patient Fasting: N Daphne Bennett APRN LAB BLOOD ORDERABLES Final Result Performing Organization Address [facility] Co de Phone Number [facility] (AMBULATORY) [address] [place] [address], [facility] [address] [place] [address], * Magnesium (03/31/2025 3:45 PM EDT) Pathologist [facility] Magnesium 2.2 1.6 - 2.3 mg/dL [facility] Blood 03/31/2025 3:45 PM EDT 03/31/2025 [facility] (AMBULATORY) - 04/01/2025 8:07 AM EDT Performed at: - [address] [id number] Data Sme: Chris Mustafa PhD, Phone: [phone] Patient Fasting: N Daphne Bennett APRN LAB BLOOD ORDERABLES Final Result Performing Organization Address [facility] Co de Phone Number [facility] ([facility]) [address] [place] [address], [facility] [address] [place] [address], * (ABNORMAL) Comprehensive Metabolic Panel (03/31/2025 3:45 [...] 03/31/2025 3:45 PM EDT 03/31/2025 Narrative [facility] (AMBULATORY) - 04/01/2025 8:07 AM EDT Performed at: - [facility] [id number] Data Sme: Chris Mustafa PhD, Phone: [phone] Patient Fasting: N Daphne Bennett APRN LAB BLOOD ORDERABLES Final Result Performing Organization Address City/State/[facility] Co de Phone Number [facility] (AMBULATORY) [address] [place] [address], [facility] [address] [place] [address], from Last 3 Months Insurance [employer] Care Teams Results Engineer Relationship Specialty Start Date End Date Baljinder Meier MD [address] [place] [facility] [address] [place] [address] PCP - General Internal Medicine 03/14/24
--- OUTSIDE RECORDS SUMMARY | 2025-04-18 11:14 | XMS_ITS | Encounter Summary ---
Author Organization [facility] Address [address] [place] [id number] Care Team Providers Care Human Projectile Name Role Phone Baljinder Meier MD Primary Care Provider [phone] Encounter Details Date Type Department Care Team (Latest Contact Info) Description 03/31/2025 Travel Social History Tobacco Use Types Packs/Day Years [...] Description 10/01/2025 2:00 PM EST Office Visit [facility] [address] [phone] Jason Stevens MD 330 [facility] [address] [place] [address] documented as of this encounter Visit Diagnoses Not on filedocumented in this encounter Care Teams Human Projectile Relationship Specialty Start Date End Date Baljinder Meier MD [address] [facility] [address] [place] [address] PCP - General Internal Medicine 03/14/24 documented as of this encounter
--- OUTSIDE RECORDS SUMMARY | 2025-04-18 11:15 | XMS_ITS | Patient Health Record ---
Author Organization [facility] Address [address] [place] [address] Care Team Providers Care Golf Club Repairer Name Role Phone Migration, Provider Unavailable Unavailable Allergies Allergen (clinical drug ingredient) Drug/Non Drug Allergy documented on EMR Reaction Allergy Type Onset Date Status penicillin V Penicillin V Potassium Unknown Drug Allergy Active Reason For Referral No Information Medications Medication SIG (Take, Route, Frequency, Duration) Notes Start Date End Date Status Montelukast Sodium 10 MG Tablet 1 tab(s) [...] review and pick correct strength-formulatio n from [employer] options. If intended option is not shown, discontinue and re-order from Quick Search* Active Estradiol 0.1 MG/24 HOURS TWICE WEEKLY FILM, EXTENDED RELEASE 1 PATCH APPLIED TOPICALLY 2 TIMES A WEEK; Duration: 30 DAY(S) *Please review and pick correct strength-formulatio n from [email or web address] options. If intended option is not shown, discontinue and re-order from Quick Search* Active Hyoscyamine Sulfate 0.125 MG Tablet 1 tab(s) sublingually every 4 hours; Duration: 30 day(s) Active Wellbutrin SR 100 MG Tablet Extended Release 12 Hour 1 tab(s) orally daily; Duration: 30 day(s) 06/13/2022 Active Propranolol HCl 10 MG Tablet 1 tab(s) orally once a day in am prn 04/22/2022 Active Motegrity 2 MG Tablet 1 tab(s) orally once a day; Duration: 30 day(s) Active Meloxicam 7.5 MG Tablet 1 tab(s) orally once a day; Duration: 30 day(s) Active Omeprazole 20 MG Capsule Delayed Release 1 cap(s) orally once a day; Duration: 30 day(s) Active Social History Social History Social History Social Info Question Answer Notes Tobacco Use Current smoking status: Never smoked Additional Details Category Social Info Options Details Social History Occupation Teacher, 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 Occupational exposure no Travel outside [place] no Alcohol no Sexually active yes Drug use no Exercise no Home smoke detector use: yes Caffeine yes Marital Status Children yes, 2 Pets yes, 1 dog Yarsani yes Problems Problem Type SNOMED Code ICD Code Onset Dates Problem Status W/U Status Risk Notes Problem Hyperlipidemia (79195026) Hyperlipidemia, unspecified (E78.5) Active confirmed Problem Anxiety disorder (617843776) Anxiety disorder, unspecified (F41.9) Active confirmed Problem terminal operator (current) use of other agents affecting estrogen receptors and estrogen levels (Z79.818) Active confirmed Problem Hysterectomy (273428864) Acquired absence of both cervix and uterus (Z90.710) Active confirmed Problem Body mass index 30.00 to 34.99 (563997141279691) Body mass index [BMI] 31.0-31.9, adult (Z68.31) Active confirmed Problem Depression (729445136) Depression, unspecified (F32.A) Active confirmed Encounters Encounter Location Date Provider Diagnosis [address] [address] 01/18/2025 Provider Migration Plan Of Treatment No Information Insurance Providers Payer Name Payer Address Payer Phone Subscriber Number Group Number Insured Name Patient Relationship to Insured Coverage Start Date Coverage End Date [employer] [address] [place] [phone] [id number] Emeli Laguerre Self - patient is the insured Medical (General) History Surgical History Surgery Date(Month/Year) Hysterectomy 2011 (L) foot 01/2022 Hernia 2013 (R) foot 2010
== END 2025-04-17 23:59 ==
LOC: LAB.DROPOF 04-18 11:07
PROVIDERS: PCP Internal Medicine; Visit Provider Internal Medicine
DX: E78.5 Hyperlipidemia, unspecified (principal); K58.1 Irritable bowel syndrome with constipation; Z83.3 Family history of diabetes mellitus; Z51.81 Encounter for therapeutic drug level monitoring; Z79.1 Long term (current) use of non-steroidal anti-inflammatories (NSAID)
CPT/HCPCS: 80053; 80061

== ENCOUNTER 2025-06-10 14:44 | Outpatient (CLI) | payer BC, SELFPAY ==
--- OUTSIDE RECORDS SUMMARY | 2025-01-18 17:30 | XMS_ITS ---
Author Organization [facility] Address [address] [place] [address] Care Team Providers Care Personalized Living Manager Name Role Phone Migration, Provider Unavailable Unavailable Allergies Allergen (clinical drug ingredient) Drug/Non Drug Allergy documented on EMR Reaction Allergy Type Onset Date Status penicillin V Penicillin V Potassium Unknown Drug Allergy Active REASON FOR VISIT [facility] Encounter Medications Medication SIG (Take, Route, Frequency, Duration) Notes Start Date End Date Status Estradiol 0.1 MG/24 HOURS TWICE WEEKLY FILM, EXTENDED RELEASE 1 PATCH APPLIED TOPICALLY 2 TIMES A WEEK; Duration: 30 DAY(S) *Please review and pick correct strength-formulatio n from [employer]an options. If intended option is not shown, [...] review and pick correct strength-formulatio n from [employer]span options. If intended option is not shown, discontinue and re-order from Quick Search* Active Meloxicam 7.5 MG Tablet 1 tab(s) orally once a day; Duration: 30 day(s) Active Motegrity 2 MG Tablet 1 tab(s) orally once a day; Duration: 30 day(s) Active Encounters Encounter Location Date Provider Diagnosis [facility] [address] [place] [address] 01/18/2025 Provider Migration Plan Of Treatment No Information Progress Notes * LAGUERREEmeli Corcoran CDOB:1965 (59 yo F)Acc No.[id number]:01/18/2025 Patient: Emeli Jordan Provider: :1965 A ge:59 Y S ex:Female Date:01/18/2025 Address:[facility] [address], [place], [id number] Subjective: * Chief Complaints: * [facility] * Medications: T akingPropranolol HCl 10 MG Tablet 1 tab(s) orally once a day in am prn Estradiol 0.1 MG/24 HOURS TWICE WEEKLY FILM, EXTENDED RELEASE 1 PATCH APPLIED TOPICALLY 2 TIMES A WEEK , Notes to Pharmacist: *Please review and pick correct strength-formulation from [employer] options. If intended option is not shown, [...] *Please review and pick correct strength-formulation from [employer] options. If intended option is not shown, [...] *Please review and pick correct strength-formulation from [employer] options. If intended option is not shown, [...] *Please review and pick correct strength-formulation from [employer] options. If intended option is not shown, [...] Electronic signature of Prov ider Migration on 06/10/2025 at 02:59 PM EDT Sign off status: Pending * Provider: Date: 0 01/18/2025 Generated for Aishwarya fitzgerald/Kristina/Vianey on: 02:59 PM EDT
--- OUTSIDE RECORDS SUMMARY | 2025-06-10 14:58 | XMS_ITS | Encounter Summary ---
Author Organization [facility] Address [address] [place] [address] Care Team Providers Care Trim Machine Operator Name Role Phone Baljinder Meier MD Primary Care Provider [phone] Encounter Details Date Type Department Care Team (Late Contact Info) Description 04/01/2025 Results Follow-Up [facility] R[facility] [address] [address] Daphne Bennett APRN [address] [place] [phone] Social History Tobacco Use Types Packs/Day Years [...] Description 10/01/2025 2:00 PM EST Office Visit [facility] [address] [address] Jason Stevens MD [address] [phone] documented as of this encounter Visit Diagnoses Not on filedocumented in this encounter Care Teams Trim Machine Operator Relationship Specialty Start Date End Date Baljinder Meier MD [address] [facility] [address] [place] [address] PCP - General Internal Medicine 03/14/24 documented as of this encounter
--- OUTSIDE RECORDS SUMMARY | 2025-06-10 14:58 | XMS_ITS | Clinical Summary ---
Author Organization [facility] Address [address] [place] [address] Care Team Providers Care Stonecutter Name Role Phone Baljinder Meier MD Primary Care Provider [phone] Allergies Active Allergy Reactions Criticality Noted Date [...] capsule by mouth Daily. 4 Active hyoscyamine (ANASPAZ,LEVSIN ) 0.125 MG tablet Take 1 tablet by [...] oral route every day 90 tablet 1 Active Active Problems Problem Noted Date Diagnosed Date [...] & Plan (03/14/2024 2:23 PM EDT): Onset 5-Transient Swelling in the right second and third [...] all normal or negative. Evaluation by a reel slitter in the past for positive antinuclear antibody [...] all normal or negative. Evaluation by a reel slitter in the past for positive antinuclear antibody [...] all normal or negative. Evaluation by a reel slitter in the past for positive antinuclear antibody [...] (03/14/2024 2:23 PM EDT): Resolved with exercise. [facility] (current) use of n on-steroidal anti-inflammatories (nsaid) 03/13/2024 Assessment & Plan (03/31/2025 3:42 PM EDT): Meloxicam PRN Risks of nonsteroidal anti-inflammatory drugs discussed including GI upset, GI bleeding, renal and hepatic risk, and the risks of cardiovascular disease. Warned not to take with other NSAIDs including rffb-yjy-liahdbe NSAIDs. No toxicity. Assessment & Plan (09/20/2024 2:15 PM EST): Celebrex PRN Risks of nonsteroidal anti-inflammatory drugs discussed including GI upset, GI bleeding, renal and hepatic risk, and the risks of cardiovascular disease. Warned not to take with other NSAIDs including rvjv-iyi-ipaefuz NSAIDs. No toxicity. Assessment & Plan (03/14/2024 2:23 PM EDT): Meloxicam prn Risks of nonsteroidal anti-inflammatory drugs discussed including GI upset, GI bleeding, renal and hepatic risk, and the risks of cardiovascular disease. Warned not to take with other NSAIDs including twdq-pvi-whedyff NSAIDs. No toxicity. Chronic bilateral low back [...] Department Care Team Description 04/01/2025 Results Follow-Up [facility] RHEUMATOLOGY [address] [address] Daphne Bennett APRN 03/31/2025 3:30 PM EDT Office Visit [facility] RHEUMATOLOGY [address] [place] [phone] Daphne Bennett APRN Multiple joint pain (Primary Dx); Positive CADEN (antinuclear antibody); [facility] (current) use of non-steroidal anti-inflammatories (nsaid); Chronic [...] Description 10/01/2025 2:00 PM EST Office Visit [facility] RHEUMATOLOGY [address] [facility] [address] [place] [address] Jason Stevens MD 330 [facility] [address] [place] [address] Health Maintenance Due Date Last Done Comments [...] ANNUAL PHYSICAL 03/13/2024 HEPATITIS C SCREENING 03/13/2024 INFLUENZA VACCINE 03/14/2025 06/03/2020, , 06/08/2018 Procedures Procedure Name Priority [...] * Sedimentation Rate (03/31/2025 3:45 PM EDT) Pathologist [facility] Sed Rate 2 0 - 40 mm/hr [facility] Blood 03/31/2025 3:45 PM EDT 03/31/2025 Narrative [facility] ([facility]ORY) - 04/01/2025 8:07 AM EDT Performed at: - [address] [id number] Nurse Clinical: Chris Mustafa PhD, Phone: [phone] Patient Fasting: N Daphne Bennett APRN LAB BLOOD ORDERABLES Final Result [facility] (AMBULATORY) [address] [id number], [facility] [address] [place] [address], * CBC (No Diff) (03/31/2025 3:45 PM EDT) Pathologist [facility] WBC 6.9 3.4 - 10.8 x10E3/uL [facility] [...] 04/01/2025 8:07 AM EDT [facility]formed at: - [facility] [address] [place] [id number] Nurse Clinical: Chris Mustafa PhD, Phone: [phone] Patient Fasting: N Daphne Bennett APRN LAB BLOOD ORDERABLES Final Result Performing Organization Address City/[facility]/ZIP Co de Phone Number [facility] [address] [place] [address], [facility] [address] [place] [address], * C-reactive Protein (03/31/2025 3:45 PM EDT) C-Reactive Protein 1 0 - 10 mg/L [facility] Blood 03/31/2025 3:45 PM EDT 03/31/2025 Narrative [facility] ([facility]) - 04/01/2025 8:07 AM EDT Performed at: Lab[address] [id number] Nurse Clinical: Chris Mustafa PhD, Phone: [phone] Patient Fasting: N Daphne Bennett APRN LAB BLOOD ORDERABLES Final Result Performing Organization Address [facility] Co de Phone Number [facility] [address] [place] [address], [facility] [address] [place] [address], * Magnesium (03/31/2025 3:45 PM EDT) Magnesium 2.2 1.6 - 2.3 mg/dL [facility] Blood 03/31/2025 3:45 PM EDT 03/31/2025 Narrative [facility] ([facility]ORY) - 04/01/2025 8:07 AM EDT Performed at: - [address] [id number] Nurse Clinical: Chris Mustafa PhD, Phone: [phone] Patient Fasting: N us Daphne Bennett BAROMETERS CALIBRATOR LAB BLOOD ORDERABLES Final Result [facility] (AMBULATORY) [address] [place] [address], [place] [phone] [facility] [address] [place] [address], [place] [phone] * (ABNORMAL) Comprehensive Metabolic Panel (03/31/2025 3:45 PM EDT) [facility] Glucose 93 70 - 99 mg/dL [facility] [...] 03/31/2025 3:45 PM EDT 03/31/2025 Narrative [facility] (AMBULATORY) - 04/01/2025 8:07 AM EDT Performed at: - [facility] [address] [place], [place] [id number] Nurse Clinical: Chris Mustafa PhD, Phone: [phone] Patient Fasting: N us Daphne Bennett BAROMETERS CALIBRATOR LAB BLOOD ORDERABLES Final Result [facility] ([facility]ORY) [address] [place] [address], [place] [phone] [facility] [address] [place] [address], [place] [phone] from Last 3 Months Insurance [employer] Care Teams Stonecutter Relationship Specialty Start Date End Date Baljinder Meier MD [address] [facility] [address] [place] [address] PCP - General Internal Medicine 03/14/24
--- OUTSIDE RECORDS SUMMARY | 2025-06-10 14:59 | XMS_ITS | Patient Health Record ---
Author Organization [facility] [facility] Address [address] [place] [address] Care Team Providers Care Coating Mixer Tender Name Role Phone Migration, Provider Unavailable Unavailable [...] review and pick correct strength-formulatio n from [employer] options. If intended option is not shown, discontinue and re-order from Quick Search* Active Estradiol 0.1 MG/24 HOURS TWICE WEEKLY FILM, EXTENDED RELEASE 1 PATCH APPLIED TOPICALLY 2 TIMES A WEEK; Duration: 30 DAY(S) *Please review and pick correct strength-formulatio n from [employer] options. If intended option is not shown, [...] Children yes, 2 Pets yes, 1 dog Presybeterian yes Problems Problem Type SNOMED Code ICD Code Onset Dates Problem Status W/U Status Risk Notes Problem Hyperlipidemia (21203402) Hyperlipidemia, unspecified (E78.5) Active confirmed Problem Anxiety disorder (113426564) Anxiety disorder, unspecified (F41.9) Active confirmed Problem group home (current) use of other agents affecting estrogen receptors and estrogen levels (Z79.818) Active confirmed Problem Hysterectomy (826041090) Acquired absence of both cervix and uterus (Z90.710) Active confirmed Problem Body mass index 30.00 to 34.99 (956304661213854) Body mass index [BMI] 31.0-31.9, adult (Z68.31) Active confirmed Problem Depression (218037884) Depression, unspecified (F32.A) Active confirmed Encounters Encounter Location Date Provider Diagnosis [address] [address] 01/18/2025 Provider Migration Plan Of Treatment No Information Insurance Providers Payer Name Payer Address Payer Phone Subscriber Number Group Number Insured Name Patient Relationship to Insured Coverage Start Date Coverage End Date [employer] [address] [place] [phone] [id number] Emeli Laguerre Self - patient is the insured Medical (General) History Surgical History Surgery Date(Month/Year) Hysterectomy 2011 (L) foot 01/2022 Hernia 2013 (R) foot 2010
== END 2025-06-10 23:59 | disposition home or self-care (01) ==
LOC: DIETICIAN 14:45
PROVIDERS: PCP Internal Medicine; Visit Provider Internal Medicine
DX: E78.5 Hyperlipidemia, unspecified (principal)
CPT/HCPCS: 97802

== ENCOUNTER 2025-06-13 11:57 | Outpatient (CLI) | payer BC, SELFPAY ==
--- OUTSIDE RECORDS SUMMARY | 2025-01-18 17:30 | XMS_ITS ---
Author Organization [facility] Address [address] [place] [address] Care Team Providers Care Sandwich Peddler Name Role Phone Migration, Provider Unavailable Unavailable Allergies Allergen (clinical drug ingredient) Drug/Non Drug Allergy documented on EMR Reaction Allergy Type Onset Date Status penicillin V Penicillin V Potassium Unknown Drug Allergy Active [facility] VIS[facility] Encounter Medications Medication SIG (Take, Route, Frequency, Duration) Notes Start Date End Date Status Estradiol 0.1 MG/24 HOURS TWICE WEEKLY FILM, EXTENDED RELEASE 1 PATCH APPLIED TOPICALLY 2 TIMES A WEEK; Duration: 30 DAY(S) *Please review and pick correct strength-formulatio n from [employer]an options. If intended option is not shown, [...] review and pick correct strength-formulatio n from [employer]span options. If intended option is not shown, discontinue and re-order from Quick Search* Active Meloxicam 7.5 MG Tablet 1 tab(s) orally once a day; Duration: 30 day(s) Active Motegrity 2 MG Tablet 1 tab(s) orally once a day; Duration: 30 day(s) Active Encounters Encounter Location Date Provider Diagnosis [facility] [address] [place] [address] 01/18/2025 Provider Migration Plan Of Treatment No Information Progress Notes * LAGUERREEmeli Corcoran CDOB:1965 (59 yo F)Acc No.[id number]:01/18/2025 Patient: Emeli Jordan Provider: :1965 A ge:59 Y S ex:Female Date:01/18/2025 Address:[facility] [address], [place], [id number] Subjective: * Chief Complaints: * [facility] * Medications: T akingPropranolol HCl 10 MG Tablet 1 tab(s) orally once a day in am prn Estradiol 0.1 MG/24 HOURS TWICE WEEKLY FILM, EXTENDED RELEASE 1 PATCH APPLIED TOPICALLY 2 TIMES A WEEK , Notes to Pharmacist: *Please review and pick correct strength-formulation from [employer] options. If intended option is not shown, [...] *Please review and pick correct strength-formulation from [employer] options. If intended option is not shown, [...] *Please review and pick correct strength-formulation from [employer] options. If intended option is not shown, [...] *Please review and pick correct strength-formulation from [employer] options. If intended option is not shown, [...] Electronic signature of Prov ider Migration on 06/13/2025 at 11:59 AM EDT Sign off status: Pending * Provider: Date: 0 01/18/2025 Generated for Aishwarya fitzgerald/Kristina/Vianey on: 11:59 AM EDT
--- OUTSIDE RECORDS SUMMARY | 2025-06-13 11:59 | XMS_ITS | Patient Health Record ---
Author Organization [employer] [facility] Address [address] [place] [address] Care Team Providers Care Director Of Bands Name Role Phone Migration, Provider Unavailable Unavailable [...] review and pick correct strength-formulatio n from [employer] options. If intended option is not shown, discontinue and re-order from Quick Search* Active Estradiol 0.1 MG/24 HOURS TWICE WEEKLY FILM, EXTENDED RELEASE 1 PATCH APPLIED TOPICALLY 2 TIMES A WEEK; Duration: 30 DAY(S) *Please review and pick correct strength-formulatio n from [employer] options. 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 [place] [address] [id number] Emeli Laguerre Self - patient is the insured Medical (General) History Surgical History Surgery Date(Month/Year) Hysterectomy 2011 (L) foot 01/2022 Hernia 2013 (R) foot 2010
--- OUTSIDE RECORDS SUMMARY | 2025-06-13 11:59 | XMS_ITS | Clinical Summary ---
Author Organization [facility] Address [address] [place] [address] Care Team Providers Care Vice President Global Advertising Sales Name Role Phone Baljinder Meier MD Primary Care Provider [phone] Allergies Active Allergy Reactions Criticality Noted Date [...] all normal or negative. Evaluation by a natural gas treating unit operator in the past for positive antinuclear [...] all normal or negative. Evaluation by a natural gas treating unit operator in the past for positive antinuclear [...] all normal or negative. Evaluation by a natural gas treating unit operator in the past for positive antinuclear [...] (03/14/2024 2:23 PM EDT): Resolved with exercise. detention (current) use of n on-steroidal anti-inflammatories (nsaid) 03/13/2024 Assessment & Plan (03/31/2025 3:42 PM EDT): Meloxicam PRN Risks of nonsteroidal anti-inflammatory drugs discussed including GI upset, GI bleeding, renal and hepatic risk, and the risks of cardiovascular disease. Warned not to take with other NSAIDs including gagz-lvy-yhvtizr NSAIDs. No toxicity. Assessment & Plan (09/20/2024 2:15 PM EST): Celebrex PRN Risks of nonsteroidal anti-inflammatory drugs discussed including GI upset, GI bleeding, renal and hepatic risk, and the risks of cardiovascular disease. Warned not to take with other NSAIDs including dcgt-ejv-hzdnkpu NSAIDs. No toxicity. Assessment & Plan (03/14/2024 2:23 PM EDT): Meloxicam prn Risks of nonsteroidal anti-inflammatory drugs discussed including GI upset, GI bleeding, renal and hepatic risk, and the risks of cardiovascular disease. Warned not to take with other NSAIDs including qkjp-oem-lqzdiwj NSAIDs. No toxicity. Chronic bilateral low back [...] Department Care Team Description 04/01/2025 Results Follow-Up [facility] RHEUMATOLOGY [address] [address] Daphne Bennett APRN 03/31/2025 3:30 PM EDT Office Visit [facility] RHEUMATOLOGY [address] [place] [phone] Daphne Bennett APRN Multiple joint pain (Primary Dx); Positive CADEN (antinuclear antibody); detention (current) use of non-steroidal anti-inflammatories (nsaid); Chronic [...] Visit [facility] RHEUMATOLOGY [address] [facility] [address] [place] [address] Jason Stevens MD 330 [facility] [address] [place] [address] Health Maintenance Due Date Last Done Comments [...] Sedimentation Rate (03/31/2025 3:45 PM EDT) Pathologist [facility] Sed Rate 2 0 - 40 mm/hr [facility] Blood 03/31/2025 3:45 PM EDT 03/31/2025 Narrative [facility] ([facility]) - 04/01/2025 8:07 AM EDT Performed at: - [address] [id number] Metallurgical Specialist: Chris Mustafa PhD, Phone: [phone] Patient Fasting: N Daphne Bennett APRN LAB BLOOD ORDERABLES Final Result [facility] (AMBULATORY) [address] [id number], [facility] [address] [place] [address], * CBC (No Diff) (03/31/2025 3:45 PM EDT) Pathologist [facility] WBC 6.9 3.4 - 10.8 x10E3/uL [facility] [...] 04/01/2025 8:07 AM EDT Performed at: - [facility] [address] [place] [id number] Metallurgical Specialist: Chris Mustafa PhD, Phone: [phone] Patient Fasting: N Daphne Bennett APRN LAB BLOOD ORDERABLES Final Result Performing Organization Address City/[facility]/ZIP Co de Phone Number [facility] [address] [place] [address], [facility] [address] [place] [address], * C-reactive Protein (03/31/2025 3:45 PM EDT) C-Reactive Protein 1 0 - 10 mg/L [facility] Blood 03/31/2025 3:45 PM EDT 03/31/2025 Narrative [facility] ([facility]) - 04/01/2025 8:07 AM EDT Performed at: Lab[address] [id number] Metallurgical Specialist: Chris Mustafa PhD, Phone: [phone] Patient Fasting: N Daphne Bennett APRN LAB BLOOD ORDERABLES Final Result Performing Organization Address [facility] Co de Phone Number [facility] [address] [place] [address], [facility] [address] [place] [address], * Magnesium (03/31/2025 3:45 PM EDT) Magnesium 2.2 1.6 - 2.3 mg/dL [facility] Blood 03/31/2025 3:45 PM EDT 03/31/2025 Narrative [facility] ([facility]) - 04/01/2025 8:07 AM EDT Performed at: - Lab[address] [id number] Metallurgical Specialist: Chris Mustafa PhD, Phone: [phone] Patient Fasting: N us Daphne Bennett PASTEURISER OPERATOR LAB BLOOD ORDERABLES Final Result [facility] (AMBULATORY) [address] [place] [address], [place] [phone] [facility] [address] [place] [address], [place] [phone] * (ABNORMAL) Comprehensive Metabolic Panel (03/31/2025 3:45 PM EDT) [facility] Glucose 93 70 - 99 mg/dL [facility] [...] 04/01/2025 8:07 AM EDT Performed at: - [facility] [address] [place], [place] [id number] Metallurgical Specialist: Chris Mustafa PhD, Phone: [phone] Patient Fasting: N us Daphne Bennett PASTEURISER OPERATOR LAB BLOOD ORDERABLES Final Result [facility] ([facility]UL[facility]ORY) [address] [place] [address], [place] [phone] [facility] [address] [place] [address], [place] [phone] from Last 3 Months Insurance [employer] Care Teams Vice President Global Advertising Sales Relationship Specialty Start Date End Date Baljinder Meier MD [address] [facility] [address] [place] [address] PCP - General Internal Medicine 03/14/24
--- OUTSIDE RECORDS SUMMARY | 2025-06-13 11:59 | XMS_ITS | Encounter Summary ---
Author Organization [facility] Address [address] [place] [address] Care Team Providers Care Cvicu Nurse Name Role Phone Baljinder Meier MD Primary Care Provider [phone] Encounter Details Date Type Department Care Team (Late Contact Info) Description 04/01/2025 Results Follow-Up [facility] [address] [address] Daphne Bennett APRN [address] [place] [phone] Social History Tobacco Use Types Packs/Day Years [...] Description 10/01/2025 2:00 PM EST Office Visit [facility] [address] [address] Jason Stevens MD [address] [phone] documented as of this encounter Visit Diagnoses Not on filedocumented in this encounter Care Teams Cvicu Nurse Relationship Specialty Start Date End Date Baljinder Meier MD [address] [facility] [address] [place] [address] PCP - General Internal Medicine 03/14/24 documented as of this encounter
--- OUTSIDE RECORDS SUMMARY | 2025-06-13 11:59 | XMS_ITS | Continuity of Care Document ---
Author Organization [facility], [facility] Address [address] [facility] [place] [place] [address] Assessment Encounter Date Assessment Date Assessment LastModified by Organization Details LastModified Time 05/19/2025 05/19/2025 59-year-old female with a history of overactive bladder and mixed urinary incontinence presenting with symptoms post-hysterecto my. The overactive bladder is marked by urgency and frequency, likely exacerbated by chronic constipation and surgical changes. Mixed urinary incontinence is present, and stress incontinence symptoms are noted. Chronic constipation, managed with medications, may contribute to urinary symptoms. The patient also has irritable bowel syndrome. She underwent PNE 01/2025 followed by stage 1 and 2 Interstim implant 02/2025. UA negative.She is doing very well with the Interstim device. She says it has improved more and more with time. She is very pleased. She will follow-up in 6 months. Plan: Follow-up in 6 months. shay Not available 05/19/2025 14:41:40 Plan of Treatment Reminders Order Date Submit Date Provider Last Modified By Organization Details Last Modified Time Details Appointments RECHECK 2025 10:45A M LONDON SHARPE NP Not available Not available Not available Lab urinalys is panel, auto 2024 025 shay [facility] [address], [address] , [place], [address], 05/19/2025 14:41:41 Referral None recorded . Procedures None recorded . Surgeries None recorded . Imaging None recorded . Medication Orders None recorded . Patient TargetsNo targets recorded. Patient InstructionsNo instructions recorded. Reason for Referral None Reported. Results Created Date Observation Date Name Description Value Unit Range Abnormal Flag Note LastModifiedBy Organization Detail LastModifiedTime 05/19/2005/19/2025 urina lysis panel , auto Unknown Analyte Clean Catch Not Available Cu/[facility] [address] [place], [address], 05/19/2025 13:47:32 05/19/2005/19/2025 urina lysis panel , auto Unknown Analyte Yellow Not Available Cu[facility] [address] [place] [address], [address], 05/19/2025 13:47:32 05/19/2005/19/2025 urina lysis panel , auto Unknown Analyte Clear Not Available Cu[facility] [address] [place] [address], [phone], 05/19/2025 13:47:32 05/19/2005/19/2025 urina lysis panel , auto Unknown Analyte 1.015 Not Available Cu/Lc [facility] [address] [place], [address], 05/19/2025 13:47:32 05/19/2005/19/2025 urina lysis panel , auto Unknown Analyte 5.0 Not Available Cu/[facility] [address] [place], [address], 05/19/2025 13:47:32 05/19/2005/19/2025 urina lysis panel , auto Unknown Analyte Negati ve Not Available [facility] [address] [place], [address], 05/19/2025 13:47:32 05/19/20 25 05/19/2025 urina lysis panel , auto Unknown Analyte Negati ve Not Available [facility]rol[facility] [address] [facility], [place], [address], 05/19/2025 13:47:32 05/19/2005/19/2025 urina lysis panel , auto Unknown Analyte Negati ve Not Available [facility]rol[facility] [address] [facility], [place], [address], 05/19/2025 13:47:32 05/19/2005/19/2025 urina lysis panel , auto Unknown Analyte Normal Not Available [facility] [address] [facility], [place], [address], 05/19/2025 13:47:32 05/19/2005/19/2025 urina lysis panel , auto Unknown Analyte Negati ve Not Available [facility]rol[facility] [address] [facility], [place], [address], 05/19/2025 13:47:32 05/19/2005/19/2025 urina lysis panel , auto Unknown Analyte Normal Not Available [facility] [address] [facility], [place], [address], 05/19/2025 13:47:32 05/19/2005/19/2025 urina lysis panel , auto Unknown Analyte Negati ve Not Available [facility]rol[facility] [address] [facility], [place], [address], 05/19/2025 13:47:32 05/19/2005/19/2025 urina lysis panel , auto Unknown Analyte Negati ve Not Available [facility] Urolo [facility] [address] [facility], [place], [address], 05/19/2025 13:47:32 Result Notes None recorded. Procedures Surgical History Date Name Laterality Status Provider Name and Address Organization Details Recorded Time 05/19/20 25 Post Void Residual; Ultrasound completed [facility] 05/19/2025 13:47:23 03/26/20 25 Peripheral Neurostimulator Analysis completed LONDON SHARPE APRN [address] [place], [address], [facility] 03/27/2025 08:05:50 03/06/20 25 implantation of sacral nerve stimulator completed CLIFTON REYNOSO MD [address] [place], [address], [facility] 03/06/2025 17:19:48 02/11/20 25 PNE Implantation; Sacral Nerve completed LONDON SHARPE APRN [address] [place], [address], [facility] 02/10/2025 13:01:02 01/09/20 25 Post Void Residual; Ultrasound completed [facility] 01/08/2025 09:59:46 12/14/19 23 operative procedure on foot completed [facility] 01/08/2025 09:59:01 02/13/20 15 hernia repair completed [facility] 01/08/2025 09:58:51 01/13/20 13 Total Hysterectomy completed [facility] 01/08/2025 09:58:14 Imaging Results None recorded. Procedure Notes None recorded. Medical Equipment None Reported. Allergies Allergen ID Allergen Name Allergen Category Reaction Reaction Severity Criticality Documentation Date Start Date Code Code System Note Provider Name and Address Organization Details Recorded Time 128246 Product containin g penicilli n (product) medicatio n Not available Not available Not available 07/08/20162009 25436 8001 SNOMED Comme nt: Creat ed By: Kiko melgar Date: 010 12:55 :14 PM; Not Available [facility] 6 03:12:55 801954 latex environme nt,medica tion Not available Not available Not available 07/08/20162009 60290 91 RxNorm Comme nt: Creat ed By: Kiko melgar Date: 010 12:55 :28 PM; Not Available [facility] 6 09:50:56 Medications Name Sig Start Date Stop Date Status Note LastModified by Organization Details LastModified Time Prescript ion - Prior Authoriza tion Request active Not Available Not Available Not Available Zanaflex 2 mg tablet Two times a day 01/08 completed Duration : 30 days;Haroldo quency: bid;Medi cation Descript ion: tizanidi ne; Dosage:1 ; Route:or al; refills: 5; Quantity :60 tablet Not Available Not Available Not Available clindamyc in HCl 300 mg capsule Take 1 capsule every 8 hours by oral route for 3 days. 03/16 completed Not Available Not Available Not Available meloxicam 15 mg tablet Take 1 tablet every day by oral route. active Not Available Not Available No t Available Neurontin 100 mg capsule Three times a day 01/08 completed Duration : 30 days;Ins truction s: begin 1 tid; as tolerate d increase to 2 tid, then final dose 3 tid;Freq uency: tid;Medi cation Descript ion: gabapent in; Dosage:1 ; Route:or al; refills: 6; Quantity :270 capsule Not Available Not Available Not Available lansopraz ole 30 mg capsule,d elayed release Daily 03/06 completed Duration : 30 days;Ins truction s: TAKE ONE CAPSULE BY MOUTH ONCE DAILY;Fr equency: daily;Me dication Descript ion: lansopra zole; Dosage:1 ; Route:or al; refills: 11; Quantity :30 delayed release capsule Not Available Not Available Not Available duloxetin e 60 mg capsule,d elayed release Take 1 capsule every day by oral route. active Not Available Not Available No t Available Whitney-D 24 Hour 180 mg-240 mg tablet,ex tended release Daily 01/08 completed Frequenc y: daily;Me dication Descript ion: fexofena dine-pse udoephed rine; Dosage:1 ; Route:or al; refills: 0 Not Available Not Available Not Available omeprazol e active Not Available Not Available Not Available Pristiq 50 mg tablet,ex tended release Daily 03/06 completed Frequenc y: daily;Me dication Descript ion: desvenflavio faxine; Dosage:1 ; Route:or al; refills: 0 Not Available Not Available Not Available Linzess 290 mcg capsule Take 1 capsule every day by oral route. active Not Available Not Available No t Available prucalopr vasyl 2 mg tablet Take 1 tablet every day by oral route. active Not Available Not Available No t Available Gemtesa 75 mg tablet Take 1 tablet every day by oral route for 90 days. 03/06 completed Not Available Not Available Not Available Vitals Date Recorded Body height Provider Name an d Address Organization Details Last Updated DateTime 05/19/2025 175.26 cm Tania White [facility] 1 13:47:08 Social History Question Answer Notes LastModified by Organizat ion Details LastModified Time Tobacco Smoking Status Never Smoker Not Available [employer] 01/08/2025 09:34:00 What Is Your Relationship Status? [email or web address] Information not available 01/08/2025 Sex: Unknown Functional Status Question Answer Note LastModified by Organization D etails LastModified Time Do you or have you ever used any other forms of tobacco or nicotine? No [email or web address] Information not available 01/08/2025 What is your level of alcohol consumption? None [email or web address] Information not available 01/08/2025 Are you currently employed? 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 Family History Relationship Description Onset Age of this Age Resolved Age Notes LastModified by Organization Details LastModified Time Paternal Grandmother Family history of malignant neoplasm [email or web address] Not available 2024 09:34:00 Paternal Grandmother Type 2 diabetes mellitus [email or web address] Not available 2024 09:34:00 Mother Family history of malignant neoplasm [email or web address] Not available 2024 09:34:00 Mother Type 2 diabetes mellitus [email or web address] Not available 2024 09:34:00 Sister Family history of malignant neoplasm [email or web address] Not available 2024 09:34:00 Paternal Grandfather Family history of malignant neoplasm [email or web address] Not available 2024 09:34:00 Father Family history of malignant neoplasm [email or web address] Not available 2024 09:34:00 Medical History Condition Response Anxiety Disorder Y Acid Reflux (GERD) Y Arthritis Y Gynecological History Statement/Question Response Female Hormone Problem N # of Pregnancies 2 Abnormal Periods N # of Births 2 Could you be now? N Current Control Method Hysterectom y Uterus/Ovaries Problem N Obstetrics History GPAL:G 2 P 2 0 0 0 Type Value Full Term 2 Total 2 Past Encounters Encounter ID Performer Location Encounter Start Date Encounter Closed Date Diagnosis/Indication Diagnosis SNOMED-CT Code Diagnosis ICD10 Code Diagnosis IMO Codes Diagnosis Note [id number] LONDON SHARPE APRN UROLOGY [facility] [address] [facility] [address] [place] [address] 05/19/2025 13:36:37 05/19/2025 14:13:43 Overactive urinary bladder 318970843 N32.81 042448 Mixed urin leora incontinence 570628748 N39.46 519952 Constipation 05412847 K5 9.00 Irritable bowel syndrome 85033972 K58.9 Health Concerns Section Related Observation LastModified by Organization Detai ls LastModified Time None Recorded Concern Status LastModified by Organization Details LastModified Time None Recorded Payers Encounter Date Sequence Insurance Name Policy Number Policy Sanchez Covered Member ID Sanchez Member ID Guarantor Name 05/19/2025 1 [employer] [id number] Emeli Laguerre [id number] Emeli Laguerre Notes Date Note Type Note Provider Name and Address Organization Details Recorded Time 05/19/2025 text/html 59-year-old female presenting with symptoms of overactive bladder and mixed urinary incontinence. She had a hysterectomy in 2012. She reports urinary urgency, frequent urination, and involuntary leakage, particularly after a hysterectomy. The symptoms are unpredictable, often triggered by physical activity, and require frequent urination attempts without complete relief. The patient also has mixed urinary incontinence, with leakage during activities like coughing or sneezing, necessitating precautionary measures. Chronic constipation is present and managed with Motegrity, Linzess, and MiraLax, but bowel movements remain irregular. The constipation is thought to contribute to urinary symptoms due to increased abdominal pressure. The patient has a history of irritable bowel syndrome, described as idiopathic. She has never been a smoker. She works as a teacher. HPI: She returns today for follow-up. She reports significant improvement in constipation and urinary symptoms since Interstim implant. She was able to come off two of her three bowel medications. She is still taking Linzess but, will try stopping it soon. She reports less urinary urgency/frequency and is no longer having urinary incontinence. She has nocturia 1-2 times but, says she believes it is due to the volume of water she drinks. LONDON SHARPE, [employer] [address] [place], [address], [facility] 05/19/2025 14:42:13 OBGyn Episode No OBEpisode recorded.
--- OUTSIDE RECORDS SUMMARY | 2025-06-13 12:00 | XMS_ITS | Data Portability ---
Author Organization [facility] Jonnie arrington, S GRACE CLOSED Address [address] [place] [address] Assessment Encounter Date Assessment Date Assessment LastModified by Organization Details LastModified Time 02/10/2025 02/10/2025 59-year-old fema le with a history of overactive bladder and mixed urinary incontinence presenting with symptoms post-hysterectomy. The overactive bladder is marked by urgency and frequency, likely exacerbated by chronic constipation and surgical changes. Mixed urinary incontinence is present, and stress incontinence symptoms are noted. Chronic constipation, managed with medications, may contribute to urinary symptoms. The patient also has irritable bowel syndrome. She tried Gemtesa which helped but, was not covered on her insurance. She is not a good candidate for anticholinergics due to issues with chronic constipation. UA negative. She will follow-up in one week for lead pull. Plan: Follow-up in one week for lead pull. [email or web address] Not available 02/10/2025 14:36:06 02/17/2025 02/17/2025 59-year-old fema le with a history of overactive bladder and mixed urinary incontinence presenting with symptoms post-hysterectomy. The overactive bladder is marked by urgency and frequency, likely exacerbated by chronic constipation and surgical changes. Mixed urinary incontinence is present, and stress incontinence symptoms are noted. Chronic constipation, managed with medications, may contribute to urinary symptoms. The patient also has irritable bowel syndrome. She underwent PNE 01/2025. She has been very pleased with PNE results. She would leroy to move forward with implant. We will contact her to schedule. Plan: Schedule stage 1 and 2 Interstim implant. [email or web address] Not available 02/18/2025 13:18:18 03/06/2025 03/06/2025 SURGERY DATE: 03/06/2025 PREOPERATIVE DIAGNOSES: 1. Overactive bladder. 2. Urge urinary incontinence. POSTOPERATIVE DIAGNOSES: 1. Overactive bladder. 2. Urge urinary incontinence. PROCEDURES: 1. Percutaneous placement of InterStim sacral nerve electrode. 2. Incisional implant of InterStim pulse generator. 3. Intraoperative programming, 4 or more parameters, complex. ANESTHESIA: MAC and local. SPECIMEN: None. ESTIMATED BLOOD LOSS: 5 mL. COMPLICATIONS: None. DRAIN: None. FINDINGS: She had good josie and toe reflex on all 4 contacts. SURGEON: Rogerio Reynoso MD INDICATIONS: A 59-year-old female with a history of overactive bladder and mixed urinary incontinence. She underwent hysterectomy in 2012. She tried overactive bladder medication including Gemtesa. She has IBS with constipation and does not want to try other medications. She underwent a peripheral nerve evaluation and had very good results. She opts for InterStim. OPERATIVE NOTE: After informed consent, the patient was taken to the operating room in stable condition. Anesthesia was induced without complications. She was in a prone position, well padded and secured to the table. The buttocks were spread with tape. A Tegaderm was placed over the anus. The lower back and gluteal regions were prepped and draped. A time-out was taken to identify the correct patient and procedures. Fluoroscopy was used to identify the medial aspect of the sacral foramina and the sacroiliac joints. Local anesthesia with 1% lidocaine was placed. A stimulation needle was used to identify an S3 foramen. Ultimately, the right side S3 foramen was identified and verified on lateral fluoroscopy. The needle was stimulated, and she had josie and toe reflex. A guidewire was placed. The obturator and sheath were placed to the appropriate depth. The electrode was placed. The electrode was stimulated, and there was good josie and toe reflex in all 4 contacts. The sheath was removed to deploy the tines. A pocket was created in the upper right gluteal region. A transverse incision 5 cm in length was made after local anesthesia. The subcutaneous tissue was opened. A pocket was created under the subcutaneous tissue. A tunneling tool was used to bring the electrode to the pocket. The InterStim X device was attached to the electrode and placed into the pocket. Intraoperative programming of 4 or more parameters was undertaken with proper impedance and response. The pocket was irrigated with Irrisept followed by water. The subcutaneous tissue was closed with 3-0 Vicryl interrupted suture. The skin incision was closed with Monocryl subcuticular suture. Dermabond was placed over the incisions. She was awakened from anesthesia and taken to the recovery room in satisfactory condition. DISPOSITION: She will be discharged to home in the care of her when stable. She was provided a prescription for clindamycin. She plans to use NSAIDs for pain control. She has scheduled followup in about 3 weeks. [email or web address] Not available 03/16/2025 07:39:17 03/26/2025 03/26/2025 59-year-old fema le with a history of overactive bladder and mixed urinary incontinence presenting with symptoms post-hysterectomy. The overactive bladder is marked by urgency and frequency, likely exacerbated by chronic constipation and surgical changes. Mixed urinary incontinence is present, and stress incontinence symptoms are noted. Chronic constipation, managed with medications, may contribute to urinary symptoms. The patient also has irritable bowel syndrome. She underwent PNE 01/2025 followed by stage 1 and 2 Interstim implant 02/2025. UA negative except trace leuks. She is doing much better overall but, would like to see if an adjustment will help more. She says she has been reading up about the device and understands it can take some time for the body and brain to adjust. We will try this new setting for a week and she will let us know how she is doing. We will plan to follow-up in two months when she is on Fall break to see how her symptoms have been. Plan: Adjustments made today. Follow-up in 2 months. [email or web address] Not available 03/27/2025 08:07:55 05/19/2025 05/19/2025 59-year-old fema le with a history of overactive bladder and mixed urinary incontinence presenting with symptoms post-hysterectomy. The overactive bladder is marked by urgency [...] 6 months. Plan: Follow-up in 6 months. [email or web address] Not available 05/19/2025 14:41:40 Plan of Treatment Reminders Order Date Submit Date Provider Last Modified By Organization Details Last Modified Time Details Appointments RECHECK 2025 10:45A M LONDON SHARPE SANDER [employer] MACHINE Not available Not available Not available Lab urinalys is panel, auto 2024 025 evickers [facility], [facility] [facility], [place], [address], 05/19/2025 14:41:41 urinalys is panel, auto 2024 025 evickers [facility], [address] [place] [address], [place], [address], 03/27/2025 08:07:56 urinalys is panel, auto 2024 025 evickers [facility], [address] [place] [address], [place], [address], 02/10/2025 14:36:29 Referral None recorded . Procedures None recorded . Surgeries None recorded . Imaging None recorded . Medication Orders clindamy jr HCl 300 mg capsule 2024 025 [facility] [id number], [address] [facility], [place], [place], [id number], 03/16/2025 05:02:22 Patient TargetsNo targets recorded. Patient InstructionsNo instructions recorded. Reason for Referral None Reported. Results Created Date Observation Date Name Description Value Unit Range Abnormal Flag Note LastModifiedBy Organization Detail LastModifiedTime 02/06/2002/05/2025 urina lysis panel , auto Unknown Analyte Clean Catch Not Available [facility] [address] [facility], [place], [address], 02/05/2025 14:16:21 02/06/20 25 02/05/2025 urina lysis panel , auto Unknown Analyte Yellow Not Available [facility] [address] [facility], [place], [address], 02/05/2025 14:16:21 02/06/20 25 02/05/2025 urina lysis panel , auto Unknown Analyte Clear Not Available [facility] [address] [facility], [place], [address], 02/05/2025 14:16:21 02/06/2002/05/2025 urina lysis panel , auto Unknown Analyte 1.015 Not Available [facility] [address] [facility], [place], [address], 02/05/2025 14:16:21 02/06/20 25 02/05/2025 urina lysis panel , auto Unknown Analyte 5.0 Not Available [facility] [address] [facility], [place], [address], 02/05/2025 14:16:21 02/06/20 25 02/05/2025 urina lysis panel , auto Unknown Analyte Negati ve Not Available [facility] [address] [facility], [place], [address], 02/05/2025 14:16:21 02/06/20 25 02/05/2025 urina lysis panel , auto Unknown Analyte Negati ve Not Available [facility] [address] [facility], [place], [address], 02/05/2025 14:16:21 02/06/20 25 02/05/2025 urina lysis panel , auto Unknown Analyte Negati ve Not Available [facility] [address] [facility], [place], [address], 02/05/2025 14:16:21 02/06/20 25 02/05/2025 urina lysis panel , auto Unknown Analyte Normal Not Available [facility] [address] [facility], [place], [address], 02/05/2025 14:16:21 02/06/20 25 02/05/2025 urina lysis panel , auto Unknown Analyte Negati ve Not Available [facility] [address] [facility], [place], [address], 02/05/2025 14:16:21 02/06/20 25 02/05/2025 urina lysis panel , auto Unknown Analyte Normal Not Available [facility] [address] [facility], [place], [address], 02/05/2025 14:16:21 02/06/20 25 02/05/2025 urina lysis panel , auto Unknown Analyte Negati ve Not Available [facility] [address] [facility], [place], [address], 02/05/2025 14:16:21 02/06/20 25 02/05/2025 urina lysis panel , auto Unknown Analyte Negati ve Not Available [facility] [address] [facility], [place], [address], 02/05/2025 14:16:21 02/11/20 25 02/10/2025 urina lysis panel , auto Unknown Analyte Clean Catch Not Available [facility] [address] [facility], [place], [address], 02/10/2025 13:00:20 02/11/20 25 02/10/2025 urina lysis panel , auto Unknown Analyte Yellow Not Available [facility] [address] [facility], [place], [address], 02/10/2025 13:00:20 02/11/20 25 02/10/2025 urina lysis panel , auto Unknown Analyte Clear Not Available [facility] [address] [facility], [place], [address], 02/10/2025 13:00:20 02/11/20 25 02/10/2025 urina lysis panel , auto Unknown Analyte 1.025 Not Available [facility] [address] [facility], [place], [address], 02/10/2025 13:00:20 02/11/20 25 02/10/2025 urina lysis panel , auto Unknown Analyte 5.0 Not Available [facility] [address] [facility], [place], [address], 02/10/2025 13:00:20 02/11/20 25 02/10/2025 urina lysis panel , auto Unknown Analyte Negati ve Not Available [facility] [address] [facility], [place], [address], 02/10/2025 13:00:20 02/11/20 25 02/10/2025 urina lysis panel , auto Unknown Analyte Negati ve Not Available [facility] [address] [facility], [place], [address], 02/10/2025 13:00:20 02/11/20 25 02/10/2025 urina lysis panel , auto Unknown Analyte Negati ve Not Available [facility] [address] [facility], [place], [address], 02/10/2025 13:00:20 02/11/20 25 02/10/2025 urina lysis panel , auto Unknown Analyte Normal Not Available [facility] [address] [facility], [place], [address], 02/10/2025 13:00:20 02/11/20 25 02/10/2025 urina lysis panel , auto Unknown Analyte Negati ve Not Available [facility] [address] [facility], [place], [address], 02/10/2025 13:00:20 02/11/20 25 02/10/2025 urina lysis panel , auto Unknown Analyte Normal Not Available [facility] [address] [facility], [place], [address], 02/10/2025 13:00:20 02/11/20 25 02/10/2025 urina lysis panel , auto Unknown Analyte Negati ve Not Available [facility] [address] [facility], [place], [address], 02/10/2025 13:00:20 02/11/20 25 02/10/2025 urina lysis panel , auto Unknown Analyte Negati ve Not Available [facility] [address] [facility], [place], [address], 02/10/2025 13:00:20 03/06/20 25 03/06/2025 urina lysis panel , auto Unknown Analyte Clean Catch Not Available [facility] Schedule [address] [place], [address], 03/06/2025 15:10:44 03/06/20 25 03/06/2025 urina lysis panel , auto Unknown Analyte Yellow Not Available [facility] Schedule [address] [place], [address], 03/06/2025 15:10:44 03/06/20 25 03/06/2025 urina lysis panel , auto Unknown Analyte Clear Not Available [facility] Schedule [address] [place], [address], 03/06/2025 15:10:44 03/06/20 25 03/06/2025 urina lysis panel , auto Unknown Analyte 1.010 Not Available [facility] Schedule [address] [place], [address], 03/06/2025 15:10:44 03/06/20 25 03/06/2025 urina lysis panel , auto Unknown Analyte 1.003 - 1.030 Not Available [facility] Schedule [address] [place], [address], 03/06/2025 15:10:44 03/06/20 25 03/06/2025 urina lysis panel , auto Unknown Analyte 8.0 Not Available [facility] Schedule [address] [place], [address], 03/06/2025 15:10:44 03/06/20 25 03/06/2025 urina lysis panel , auto Unknown Analyte 5.0 - 8.0 Not Available [facility] Schedule [address] [place], [address], 03/06/2025 15:10:44 03/06/20 25 03/06/2025 urina lysis panel , auto Unknown Analyte 25 Miguel/uL Not Available [facility] Schedule [address] [place], [address], 03/06/2025 15:10:44 03/06/20 25 03/06/2025 urina lysis panel , auto Unknown Analyte Negati ve Not Available [facility] Schedule [address] [place], [address], 03/06/2025 15:10:44 03/06/20 25 03/06/2025 urina lysis panel , auto Unknown Analyte Negati ve Not Available [facility] Schedule [address] [place], [address], 03/06/2025 15:10:44 03/06/20 25 03/06/2025 urina lysis panel , auto Unknown Analyte Negati ve Not Available [facility] Schedule [address] [place], [address], 03/06/2025 15:10:44 03/06/20 25 03/06/2025 urina lysis panel , auto Unknown Analyte Negati ve Not Available [facility] Schedule [address] [place], [address], 03/06/2025 15:10:44 03/06/20 25 03/06/2025 urina lysis panel , auto Unknown Analyte Negati ve Not Available [facility] Schedule [address] [place], [address], 03/06/2025 15:10:44 03/06/20 25 03/06/2025 urina lysis panel , auto Unknown Analyte Normal Not Available [facility] Schedule [address] [place], [address], 03/06/2025 15:10:44 03/06/20 25 03/06/2025 urina lysis panel , auto Unknown Analyte Normal Not Available [facility] Schedule [address] [place], [address], 03/06/2025 15:10:44 03/06/20 25 03/06/2025 urina lysis panel , auto Unknown Analyte Negati ve Not Available [facility] Schedule [address] [place], [address], 03/06/2025 15:10:44 03/06/20 25 03/06/2025 urina lysis panel , auto Unknown Analyte Negati ve Not Available [facility] Schedule [address] [place], [address], 03/06/2025 15:10:44 03/06/20 25 03/06/2025 urina lysis panel , auto Unknown Analyte Normal Not Available [facility] Schedule [address] [place], [address], 03/06/2025 15:10:44 03/06/20 25 03/06/2025 urina lysis panel , auto Unknown Analyte Normal Not Available [facility] Schedule [address] [place], [address], 03/06/2025 15:10:44 03/06/20 25 03/06/2025 urina lysis panel , auto Unknown Analyte Negati ve Not Available [facility] Schedule [address] [place], [address], 03/06/2025 15:10:44 03/06/20 25 03/06/2025 urina lysis panel , auto Unknown Analyte Negati ve Not Available [facility] Schedule [address] [place], [address], 03/06/2025 15:10:44 03/06/20 25 03/06/2025 urina lysis panel , auto Unknown Analyte Negati ve Not Available [facility] Schedule [address] [place], [address], 03/06/2025 15:10:44 03/06/20 25 03/06/2025 urina lysis panel , auto Unknown Analyte Negati ve Not Available [facility] Schedule [address] [place], [address], 03/06/2025 15:10:44 03/26/20 25 03/26/2025 urina lysis panel , auto Unknown Analyte Clean Catch Not Available [facility] [address] [place], [address], 03/26/2025 14:17:40 03/26/20 25 03/26/2025 urina lysis panel , auto Unknown Analyte Yellow Not Available [facility] [address] [place], [address], 03/26/2025 14:17:40 03/26/20 25 03/26/2025 urina lysis panel , auto Unknown Analyte Clear Not Available [facility] [address] [facility], [place], [address], 03/26/2025 14:17:40 03/26/20 25 03/26/2025 urina lysis panel , auto Unknown Analyte 1.005 Not Available [facility] [address] [facility], [place], [address], 03/26/2025 14:17:40 03/26/20 25 03/26/2025 urina lysis panel , auto Unknown Analyte 7.0 Not Available [facility] [address] [facility], [place], [address], 03/26/2025 14:17:40 03/26/20 25 03/26/2025 urina lysis panel , auto Unknown Analyte 25 Miguel/uL Not Available [facility] [address] [facility], [place], [address], 03/26/2025 14:17:40 03/26/2003/26/2025 urina lysis panel , auto Unknown Analyte Negati ve Not Available [facility] [address] [facility], [place], [address], 03/26/2025 14:17:40 03/26/2003/26/2025 urina lysis panel , auto Unknown Analyte Negati ve Not Available [facility] [address] [facility], [place], [address], 03/26/2025 14:17:40 03/26/20 25 03/26/2025 urina lysis panel , auto Unknown Analyte Normal Not Available [facility] [address] [place], [address], 03/26/2025 14:17:40 03/26/20 25 03/26/2025 urina lysis panel , auto Unknown Analyte Negati ve Not Available [facility] [address] [facility], [place], [address], 03/26/2025 14:17:40 03/26/20 25 03/26/2025 urina lysis panel , auto Unknown Analyte Normal Not Available [facility] [address] [facility], [place], [address], 03/26/2025 14:17:40 03/26/20 25 03/26/2025 urina lysis panel , auto Unknown Analyte Negati ve Not Available [facility] [address] [facility], [place], [address], 03/26/2025 14:17:40 03/26/20 25 03/26/2025 urina lysis panel , auto Unknown Analyte Negati ve Not Available [facility] [address] [facility], [place], [address], 03/26/2025 14:17:40 05/19/2005/19/2025 urina lysis panel , auto Unknown Analyte Clean Catch Not Available [facility] [address] [facility], [place], [address], 05/19/2025 13:47:32 05/19/2005/19/2025 urina lysis panel , auto Unknown Analyte Yellow Not Available [facility] [address] [facility], [place], [address], 05/19/2025 13:47:32 05/19/20 25 05/19/2025 urina lysis panel , auto Unknown Analyte Clear Not Available [facility] [address] [facility], [place], [address], 05/19/2025 13:47:32 05/19/2005/19/2025 urina lysis panel , auto Unknown Analyte 1.015 Not Available [facility] [address] [facility], [place], [address], 05/19/2025 13:47:32 05/19/2005/19/2025 urina lysis panel , auto Unknown Analyte 5.0 Not Available [facility] [address] [facility], [place], [address], 05/19/2025 13:47:32 05/19/2005/19/2025 urina lysis panel , auto Unknown Analyte Negati ve Not Available [facility] [address] [facility], [place], [address], 05/19/2025 13:47:32 05/19/2005/19/2025 urina lysis panel , auto Unknown Analyte Negati ve Not Available [facility] [address] [facility], [place], [address], 05/19/2025 13:47:32 05/19/2005/19/2025 urina lysis panel , auto Unknown Analyte Negati ve Not Available [facility] [address] [facility], [place], [address], 05/19/2025 13:47:32 05/19/2005/19/2025 urina lysis panel , auto Unknown Analyte Normal Not Available [facility] [address] [facility], [place], [address], 05/19/2025 13:47:32 05/19/2005/19/2025 urina lysis panel , auto Unknown Analyte Negati ve Not Available [facility] [address] [facility], [place], [address], 05/19/2025 13:47:32 05/19/2005/19/2025 urina lysis panel , auto Unknown Analyte Normal Not Available [facility] [address] [facility], [place], [address], 05/19/2025 13:47:32 05/19/20 25 05/19/2025 urina lysis panel , auto Unknown Analyte Negati ve Not Available [facility] [address] [facility], [place], [address], 05/19/2025 13:47:32 05/19/2005/19/2025 urina lysis panel , auto Unknown Analyte Negati ve Not Available [facility] [address] [facility], [place], [address], 05/19/2025 13:47:32 Result Notes None recorded. Procedures Surgical History Date Name Laterality Status Provider Name and Address Organization Details Recorded Time 05/19/20 25 Post Void Residual; Ultrasound completed [facility] 05/19/2025 13:47:23 03/26/20 Peripheral Neurostimulator Analysis completed LONDON SHARPE APRN [address] [place], [address], [facility] 03/27/2025 08:05:50 03/06/20 25 implantation of sacral nerve stimulator completed ROGERIO REYNOSO MD [address] [place], [address], [facility] 03/06/2025 17:19:48 02/11/20 25 PNE Implantation; Sacral Nerve completed LONDON SHARPE APRN [address] [place], [address], [facility] 02/10/2025 13:01:02 01/09/20 25 Post Void Residual; Ultrasound completed [facility] 01/08/2025 09:59:46 12/14/19 23 operative procedure on foot completed [facility] 01/08/2025 09:59:01 02/13/20 15 hernia repair completed [facility] 01/08/2025 09:58:51 01/13/20 13 Total Hysterectomy completed [facility] 01/08/2025 09:58:14 Imaging Results None recorded. Procedure Notes None recorded. Medical Equipment None Reported. Allergies Allergen ID Allergen Name Allergen Category Reaction Reaction Severity Criticality Documentation Date Start Date Code Code System Note Provider Name and Address Organization Details Recorded Time 017009 Product containin g penicilli n (product) medicatio n Not available Not available Not available 07/08/20162009 83126 8001 SNOMED Comme nt: Creat ed By: Kiko Logan talia Date: 12:55 :14 PM; Not Available Count includes the [facility] 6 03:12:55 [id number] latex environme nt,medica tion Not available Not available Not available 07/08/20162009 16877 91 RxNorm Comme nt: Creat ed By: Kiko Logan talia Date: 12:55 :28 PM; Not Available Count includes the [facility] 6 09:50:56 Medications Name Sig Start [...] completed Frequenc y: daily;Me dication Descript ion: desvenla faxine; Dosage:1 ; Route:or al; refills: 0 [...] Not Available Vitals Date Recorded Body height Body mass index (BMI) Body weight Provider Name and Address Organization Details Last Updated DateTime 02/10/2025 175.26 cm 30.7 kg/m2 36357.21 g [facility] 02/10/2025 13:40:09 Date Recorded Body height Provider Name an d Address Organization Details Last Updated DateTime 02/17/2025 175.26 cm [facility] 0 02/17/2025 09:18:27 Date Recorded Body height Body mass index (BMI) Body weight Provider Name and Address Organization Details Last Updated DateTime 03/26/2025 175.26 cm 30.7 kg/m2 31182.21 g Yuliet Arriola [facility] 03/26/2025 14:17:20 Date Recorded Body height Provider Name an d Address Organization Details Last Updated DateTime 05/19/2025 175.26 cm Tania White [facility] 1 13:47:08 Social History Question Answer Notes [...] Medical History Condition Response Anxiety Disorder Y Arthritis Y Acid Reflux (GERD) Y Gynecological History Statement/Question Response Female Hormone [...] ICD10 Code Diagnosis IMO Codes Diagnosis Note [id number] LONDON SHARPE APRN UROLOGY [facility] [address] [address] 01/08/2025 09:22:17 01/08/2025 11:43:58 Overactive urinary bladder 192234730 N32.81 588552 Begin treatment with Gemtesa to address overactive bladder symptoms, aiming to avoid constipati on. Consider bladder Botox or InterStim if needed. Patient understand s the treatment plan. Mixed urin leora incontinence 373491896 N39.46 994142 Advise pelvic floor exercises, with surgical options as a secondary considerat ion. Patient agrees to try medical management initially. Constipation 63773711 K5 9.00 Maintain current medication regimen and evaluate for InterStim therapy if necessary for symptom control. Patient aware of potential benefits. Irritable bowel syndrome 05448869 K58.9 Continue with current treatment, exploring InterStim as a potential adjunct. Patient informed of therapeuti alix ramirez ies. [id number] LONDON SHARPE APRN UROLOGY [facility] [address] [address] 02/05/2025 14:08:08 02/05/2025 14:51:42 Overactive urinary bladder 565722931 N32.81 270135 Mixed urin leora incontinence 170612786 N39.46 571799 Constipation 67164645 K5 9.00 Irritable bowel syndrome 99327327 K58.9 [id number] LONDON SHARPE APRN UROLOGOnur [facility] [address] [address] 02/10/2025 13:34:24 02/10/2025 14:40:12 Overactive urinary bladder 699352471 N32.81 681405 Mixed urin leora incontinence 337596135 N39.46 046204 Constipation 31471268 K5 9.00 Irritable bowel syndrome 91129751 K58.9 [id number] LONDON SHARPE APRN UROLOGY [facility] [address] [address] 02/17/2025 09:05:43 02/24/2025 08:31:33 Overactive urinary bladder 782682246 N32.81 302779 Mixed urin leora incontinence 200214680 N39.46 904786 Constipation 29223334 K5 9.00 Irritable bowel syndrome 36810420 K58.9 [id number] ROGERIO REYNOSO MD SURGERY SCHEDULE [address] [place] [address] 03/06/2025 14:06:35 03/06/2025 14:07:01 Overactive urinary bladder 505594482 N32.81 820093 [id number] LONDON SHARPE APRN UROLOGY [facility] [address] [address] 03/26/2025 14:09:31 03/26/2025 14:43:32 Overactive urinary bladder 902961687 N32.81 844174 Mixed urin leora incontinence 112411482 N39.46 813730 Constipation 66591405 K5 9.00 Irritable bowel syndrome 96039869 K58.9 [id number] LONDON SHARPE APRN UROLOGOnur [facility] [address] [address] 05/19/2025 13:36:37 05/19/2025 14:13:43 Overactive urinary bladder 686186457 N32.81 965893 Mixed urin leora incontinence 815549185 N39.46 879080 Constipation 27426705 K5 9.00 Irritable bowel syndrome 22972260 K58.9 Health Concerns Section Related Observation LastModified by Organization Detai ls LastModified Time None Recorded Concern Status LastModified by Organization Details LastModified Time None Recorded Advance Directives Directive None Recorded Payers Insurance Date Sequence Insurance Name Policy Number Policy Sanchez Covered Member ID Sanchez Member ID Guarantor Name 05/16/2025 1 [place] [id number] Emeli Arrington Laguerre [id number] Emeli Arrington Laguerre 05/14/2025 PAYMENT MAKI Laguerre Notes Date Note Type Note Provider Name and Address Organization Details Recorded Time 02/10/2025 text/html She returns today for bilateral PNE. She has overactive baldder and mixed urinary incontinence. She also has IBS and chronic constipation. LONDON SHARPE, MARLEY [address] [place], [address], [facility] 02/10/2025 14:36:31 02/17/2025 text/html 59-year-old female presenting with symptoms of [...] a teacher. HPI: She returns today for follow-up after PNE last week. She was very impressed with urinary symptoms improvement. She had less frequency 13-9, less nocturia 3-1 and less urgency 3-0. She also noticed more regular bowel movements without straining or constipation during the PNE. She would like to proceed with implant. LONDON SHARPE, MARLEY [address] [place], [address], [facility] 02/18/2025 13:18:44 03/26/2025 text/html 59-year-old female presenting with symptoms of [...] a teacher. HPI: She returns today for follow-up after Interstim implant on 03/06/25. She says at first, it didn't seem to work at all but, after a few days, she noticed significant improvement. She has less frequency, less urgency and is not having any accidents. She says she had a period of a couple of weeks where symptoms were similar to when she did PNE testing but, recently has had increased urgency. She is hoping the device will help with constipation since this is a chronic struggle for her. She has seen some improvement as well in bowel habits. Overall she is pleased. 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 She has noticed increased nocturia recently whcih is bothersome. LONDON SHARPE, SOCIAL SECRETARY [address] [place], [address], [facility] 03/27/2025 08:08:12 05/19/2025 text/html 59-year-old female presenting with symptoms [...] volume of water she drinks. LONDON SHARPE, SOCIAL SECRETARY [address], [place], [address], [facility] 05/19/2025 14:42:13 OBGyn Episode No OBEpisode recorded.
[2025-06-13 12:53] LABS: Hemoglobin A1C 5.7 % (4.0-6.0)
== END 2025-06-13 23:59 | disposition home or self-care (01) ==
LOC: LAB 11:57
PROVIDERS: PCP Internal Medicine; Visit Provider Internal Medicine
DX: E66.811 Obesity, class 1 (principal); Z83.3 Family history of diabetes mellitus
CPT/HCPCS: 36415; 83036

== ENCOUNTER 2025-06-19 15:34 | Outpatient (CLI) | payer BC, SELFPAY ==
--- OUTSIDE RECORDS SUMMARY | 2025-01-18 16:30 | XMS_ITS ---
Author Organization [facility] Address [address] [place] [address] Care Team Providers Care Cabin Furnishings Installer Name Role Phone Migration, Provider Unavailable Unavailable Allergies Allergen (clinical drug ingredient) Drug/Non Drug Allergy documented on EMR Reaction Allergy Type Onset Date Status penicillin V Penicillin V Potassium Unknown Drug Allergy Active [facility] Encounter Medications Medication SIG (Take, Route, Frequency, Duration) Notes Start Date End Date Status Estradiol 0.1 MG/24 HOURS TWICE WEEKLY FILM, EXTENDED RELEASE 1 PATCH APPLIED TOPICALLY 2 TIMES A WEEK; Duration: 30 DAY(S) *Please review and pick correct strength-formulatio n from [employer] options. If intended option is not shown, discontinue and re-order from Quick Search* Active Hyoscyamine Sulfate 0.125 MG Tablet 1 tab(s) sublingually every 4 hours; Duration: 30 day(s) Active Wellbutrin SR 100 MG Tablet Extended Release 12 Hour 1 tab(s) orally daily; Duration: 30 day(s) 06/13/2022 Active Propranolol HCl 10 MG Tablet 1 tab(s) orally once a day in am prn 04/22/2022 Active Omeprazole 20 MG Capsule Delayed Release 1 cap(s) orally once a day; Duration: 30 day(s) Active Montelukast Sodium 10 MG Tablet 1 tab(s) orally once a day; Duration: 30 day(s) Active DULoxetine HCl 30 MG Capsule Delayed Release Particles 1 cap(s) orally once a day Active Temazepam 15 MG Capsule 1 cap(s) orally once a day (at bedtime) Active Vitamin D3 50 MCG TABLET 1 TAB(S) ORALLY ONCE A DAY; Duration: 30 DAY(S) *Please review and pick correct strength-formulatio n from [employer] options. If intended option is not shown, discontinue and re-order from Quick Search* Active Meloxicam 7.5 MG Tablet 1 tab(s) orally once a day; Duration: 30 day(s) Active Motegrity 2 MG Tablet 1 tab(s) orally once a day; Duration: 30 day(s) Active Encounters Encounter Location Date Provider Diagnosis [facility] [address] [place] [address] 01/18/2025 Provider Migration Plan Of Treatment No Information Progress Notes * LAGUERREEmeli Corcoran CDOB:1965 (59 yo F)Acc No.[id number]:01/18/2025 Patient: Emeli Jordan Provider: :1965 A ge:59 Y S ex:Female Date:01/18/2025 Address:[facility] [address], [place], [id number] Subjective: * Chief Complaints: * [facility] * Medications: T akingPropranolol HCl 10 MG Tablet 1 tab(s) orally once a day in am prn Estradiol 0.1 MG/24 HOURS TWICE WEEKLY FILM, EXTENDED RELEASE 1 PATCH APPLIED TOPICALLY 2 TIMES A WEEK , Notes to Pharmacist: *Please review and pick correct strength-formulation from [employer] options. If intended option is not shown, discontinue and re-order from Quick Search*Hyoscyamine Sulfate 0.125 MG Tablet 1 tab(s) sublingually every 4 hours Omeprazole 20 MG Capsule Delayed Release 1 cap(s) orally once a day Motegrity 2 MG Tablet 1 tab(s) orally once a day Meloxicam 7.5 MG Tablet 1 tab(s) orally once a day Temazepam 15 MG Capsule 1 cap(s) orally once a day (at bedtime) Vitamin D3 50 MCG TABLET 1 TAB(S) ORALLY ONCE A DAY , Notes to Pharmacist: *Please review and pick correct strength-formulation from [employer] options. If intended option is not shown, discontinue and re-order from Quick Search*Montelukast Sodium 10 MG Tablet 1 tab(s) orally once a day DULoxetine HCl 30 MG Capsule Delayed Release Particles 1 cap(s) orally once a day Wellbutrin SR 100 MG Tablet Extended Release 12 Hour 1 tab(s) orally daily Taking Propranolol HCl 10 MG Tablet 1 tab(s) orally once a day in am prn Taking Estradiol 0.1 MG/24 HOURS TWICE WEEKLY FILM, EXTENDED RELEASE 1 PATCH APPLIED TOPICALLY 2 TIMES A WEEK , Notes to Pharmacist: *Please review and pick correct strength-formulation from [employer] options. If intended option is not shown, discontinue and re-order from Quick Search*Taking Hyoscyamine Sulfate 0.125 MG Tablet 1 tab(s) sublingually every 4 hours Taking Omeprazole 20 MG Capsule Delayed Release 1 cap(s) orally once a day Taking Motegrity 2 MG Tablet 1 tab(s) orally once a day Taking Meloxicam 7.5 MG Tablet 1 tab(s) orally once a day Taking Temazepam 15 MG Capsule 1 cap(s) orally once a day (at bedtime) Taking Vitamin D3 50 MCG TABLET 1 TAB(S) ORALLY ONCE A DAY , Notes to Pharmacist: *Please review and pick correct strength-formulation from [employer] options. If intended option is not shown, discontinue and re-order from Quick Search*Taking Montelukast Sodium 10 MG Tablet 1 tab(s) orally once a day Taking DULoxetine HCl 30 MG Capsule Delayed Release Particles 1 cap(s) orally once a day Taking Wellbutrin SR 100 MG Tablet Extended Release 12 Hour 1 tab(s) orally daily * Allergies: P enicillin V Potassium * Electronic signature of Prov ider Migration on 06/19/2025 at 03:37 PM EST Sign off status: Pending * Provider: Date: 0 01/18/2025 Generated for Aishwarya fitzgerald/Kristina/Vianey on: 08/19/2024 03:37 PM EST
--- OUTSIDE RECORDS SUMMARY | 2025-06-19 15:36 | XMS_ITS | Patient Health Record ---
Author Organization [employer] [facility] Address [address] [place] [address] Care Team Providers Care Machine Shop Inspector Name Role Phone Migration, Provider Unavailable Unavailable [...] review and pick correct strength-formulatio n from [employer] options. If intended option is not shown, discontinue and re-order from Quick Search* Active Estradiol 0.1 MG/24 HOURS TWICE WEEKLY FILM, EXTENDED RELEASE 1 PATCH APPLIED TOPICALLY 2 TIMES A WEEK; Duration: 30 DAY(S) *Please review and pick correct strength-formulatio n from [employer] options. If intended option is not shown, [...] Children yes, 2 Pets yes, 1 dog Christianity yes Problems Problem Type SNOMED Code ICD Code Onset Dates Problem Status W/U Status Risk Notes Problem Hyperlipidemia (53187646) Hyperlipidemia, unspecified (E78.5) Active confirmed Problem Anxiety disorder (266702163) Anxiety disorder, unspecified (F41.9) Active confirmed Problem alf (current) use of other agents affecting estrogen receptors and estrogen levels (Z79.818) Active confirmed Problem Hysterectomy (026191757) Acquired absence of both cervix and uterus (Z90.710) Active confirmed Problem Body mass index 30.00 to 34.99 (904240433902626) Body mass index [BMI] 31.0-31.9, adult (Z68.31) Active confirmed Problem Depression (238509621) Depression, unspecified (F32.A) Active confirmed Encounters Encounter Location Date Provider Diagnosis [address] [address] 01/18/2025 Provider Migration Plan Of Treatment No Information Insurance Providers Payer Name Payer Address Payer Phone Subscriber Number Group Number Insured Name Patient Relationship to Insured Coverage Start Date Coverage End Date [employer] [address] [place] [address] [id number] Emeli Laguerre Self - patient is the insured Medical (General) History Surgical History Surgery Date(Month/Year) Hysterectomy 2011 (L) foot 01/2022 Hernia 2013 (R) foot 2010
--- OUTSIDE RECORDS SUMMARY | 2025-06-19 15:36 | XMS_ITS | Clinical Summary ---
Author Organization [facility] Address [address] [place] [address] Care Team Providers Care Workforce Management Consultant Name Role Phone Baljinder Meier MD Primary Care Provider [phone] Allergies Active Allergy Reactions Criticality Noted Date [...] all normal or negative. Evaluation by a diamond selector in the past for positive antinuclear antibody [...] all normal or negative. Evaluation by a diamond selector in the past for positive antinuclear antibody [...] all normal or negative. Evaluation by a diamond selector in the past for positive antinuclear antibody [...] (03/14/2024 2:23 PM EDT): Resolved with exercise. jail (current) use of n on-steroidal anti-inflammatories (nsaid) 03/13/2024 Assessment & Plan (03/31/2025 3:42 PM EDT): Meloxicam PRN Risks of nonsteroidal anti-inflammatory drugs discussed including GI upset, GI bleeding, renal and hepatic risk, and the risks of cardiovascular disease. Warned not to take with other NSAIDs including gzqs-soe-jsryeji NSAIDs. No toxicity. Assessment & Plan (09/20/2024 2:15 PM EST): Celebrex PRN Risks of nonsteroidal anti-inflammatory drugs discussed including GI upset, GI bleeding, renal and hepatic risk, and the risks of cardiovascular disease. Warned not to take with other NSAIDs including hbwv-kxn-fxevktl NSAIDs. No toxicity. Assessment & Plan (03/14/2024 2:23 PM EDT): Meloxicam prn Risks of nonsteroidal anti-inflammatory drugs discussed including GI upset, GI bleeding, renal and hepatic risk, and the risks of cardiovascular disease. Warned not to take with other NSAIDs including xcmc-ovl-lhqcapb NSAIDs. No toxicity. Chronic bilateral low back [...] Follow-Up [facility] RHEUMATOLOGY [address] [address] Daphne Bennett APRN 03/31/2025 3:30 PM EDT Office Visit [facility] [address] [place] [address] Daphne Bennett APRN Multiple joint pain (Primary Dx); Positive CADEN (antinuclear antibody); jail (current) use of non-steroidal anti-inflammatories (nsaid); Chronic [...] Visit [facility] [address] [place] [address] Jason Stevens MD 330 [facility] [address] [place] [address] Health Maintenance Due Date Last Done Comments [...] Sedimentation Rate (03/31/2025 3:45 PM EDT) Pathologist [facility] Sed Rate 2 0 - 40 mm/hr [facility] Blood 03/31/2025 3:45 PM EDT 03/31/2025 Narrative [facility] (AMBULATORY) - 04/01/2025 8:07 AM EDT Performed at: - [address] [id number] Coremaker: Chris Mustafa PhD, Phone: [phone] Patient Fasting: N Daphne Bennett APRN LAB BLOOD ORDERABLES Final Result [facility] (AMBULATORY) [address] [id number], [facility] [address] [place] [address], * CBC (No Diff) (03/31/2025 3:45 PM EDT) Pathologist [facility] WBC 6.9 3.4 - 10.8 x10E3/uL [facility] [...] 04/01/2025 8:07 AM EDT [facility]formed at: - [facility] [address] [place] [id number] Coremaker: Chris Mustafa PhD, Phone: [phone] Patient Fasting: N Daphne Bennett APRN LAB BLOOD ORDERABLES Final Result Performing Organization Address City/[facility]/ZIP Co de Phone Number [facility] [address] [place] [address], [facility] [address] [place] [address], * C-reactive Protein (03/31/2025 3:45 PM EDT) C-Reactive Protein 1 0 - 10 mg/L [facility] Blood 03/31/2025 3:45 PM EDT 03/31/2025 Narrative [facility] ([facility]) - 04/01/2025 8:07 AM EDT Performed at: Lab[address] [id number] Coremaker: Chris Mustafa PhD, Phone: [phone] Patient Fasting: N Daphne Bennett APRN LAB BLOOD ORDERABLES Final Result Performing Organization Address [facility] Co de Phone Number [facility] [address] [place] [address], [facility] [address] [place] [address], * Magnesium (03/31/2025 3:45 PM EDT) Magnesium 2.2 1.6 - 2.3 mg/dL [facility] Blood 03/31/2025 3:45 PM EDT 03/31/2025 Narrative [facility] (AMBULATORY) - 04/01/2025 8:07 AM EDT Performed at: - [address] [id number] Coremaker: Chris Mustafa PhD, Phone: [phone] Patient Fasting: N us Daphne Bennett QUANTITATIVE RESEARCH ANALYST LAB BLOOD ORDERABLES Final Result [facility] (AMBULATORY) [address] [place] [address], [place] [phone] [facility] [address] [place] [address], [place] [phone] * (ABNORMAL) Comprehensive Metabolic Panel (03/31/2025 3:45 PM EDT) [facility] Glucose 93 70 - 99 mg/dL [facility] [...] 04/01/2025 8:07 AM EDT Performed at: - [facility] [address] [place], [place] [id number] Coremaker: Chris Mustafa PhD, Phone: [phone] Patient Fasting: N us Daphne Bennett QUANTITATIVE RESEARCH ANALYST LAB BLOOD ORDERABLES Final Result [facility] (AMBULATORY) [address] [place] [address], [place] [phone] [facility] [address] [place] [address], [place] [phone] from Last 3 Months Insurance [employer] Care Teams Workforce Management Consultant Relationship Specialty Start Date End Date Baljinder Meier MD [address] [facility] [address] [place] [address] PCP - General Internal Medicine 03/14/24
--- OUTSIDE RECORDS SUMMARY | 2025-06-19 15:36 | XMS_ITS | Encounter Summary ---
Author Organization [facility] Address [address] [place] [address] Care Team Providers Care Chief Lock Operator Name Role Phone Baljinder Meier MD Primary Care Provider [phone] Encounter Details Date Type Department Care Team (Late Contact Info) Description 04/01/2025 Results Follow-Up [facility] RHEUMATOLOGY [address] [address] Daphne Bennett APRN [address] [place] [address] [phone] Social History Tobacco Use Types Packs/Day Years [...] [facility] [address] [address] Jason Stevens MD [address] [id number] documented as of this encounter Visit Diagnoses Not on filedocumented in this encounter Care Teams Chief Lock Operator Relationship Specialty Start Date End Date Baljinder Meier MD [address] [facility] [address] [place] [address] PCP - General Internal Medicine 03/14/24 documented as of this encounter
--- OUTSIDE RECORDS SUMMARY | 2025-06-19 15:37 | XMS_ITS | Continuity of Care Document ---
Author Organization [facility] Address [address] [facility] [place] [address] Assessment Encounter Date Assessment Date Assessment LastModified [...] panel, auto 2024 025 shay [facility] U[address], [address] , [place], [address], 05/19/2025 14:41:41 Referral None recorded . Procedures [...] Clean Catch Not Available Cu/Lc Urolo gy [facility] [address] [place], [address], 05/19/2025 13:47:32 05/19/2005/19/2025 urina lysis panel , auto Unknown Analyte Yellow Not Available [facility] Urology [facility] [address] [place] [address], [address], 05/19/2025 13:47:32 05/19/2005/19/2025 urina lysis panel , auto Unknown Analyte Clear Not Available Cu[facility]Lc Urology [facility] [address] [place] [address], [address], 05/19/2025 13:47:32 05/19/2005/19/2025 urina lysis panel , auto Unknown Analyte 1.015 Not Available Cu/Lc Urology [facility] [address] [place], [address], 05/19/2025 13:47:32 05/19/2005/19/2025 urina lysis panel , auto Unknown Analyte 5.0 Not Available Cu/Lc Urology [facility] [address] [place], [address], 05/19/2025 13:47:32 05/19/2005/19/2025 urina lysis panel , auto Unknown Analyte Negati ve Not Available Cu/Lc Urolo gy [address] [place], [address], 05/19/2025 13:47:32 05/19/20 25 05/19/2025 urina lysis panel , auto Unknown Analyte Negati ve Not Available Cu/Lc Urolo gy [address] [facility], [place], [address], 05/19/2025 13:47:32 05/19/2005/19/2025 urina lysis panel , auto Unknown Analyte Negati ve Not Available Cu/Lc Urolo gy [address] [facility], [place], [address], 05/19/2025 13:47:32 05/19/2005/19/2025 urina lysis panel , auto Unknown Analyte [place] Not Available Cu/Lc Urology [address] [facility], [place], [address], 05/19/2025 13:47:32 05/19/2005/19/2025 urina lysis panel , auto Unknown Analyte Negati ve Not Available Cu/Lc Urolo gy [address] [facility], [place], [address], 05/19/2025 13:47:32 05/19/2005/19/2025 urina lysis panel , auto Unknown Analyte [place] Not Available Cu/Lc Urology [address] [facility], [place], [address], 05/19/2025 13:47:32 05/19/2005/19/2025 urina lysis panel , auto Unknown Analyte Negati ve Not Available Cu/Lc Urolo gy [address] [facility], [place], [address], 05/19/2025 13:47:32 05/19/2005/19/2025 urina lysis panel , auto Unknown Analyte Negati ve Not Available Cu/Lc Urolo gy [address] [facility], [place], [address], 05/19/2025 13:47:32 Result Notes None recorded. Procedures Surgical History Date Name Laterality Status Provider Name and Address Organization Details Recorded Time 05/19/20 25 Post Void Residual; Ultrasound completed [facility] 05/19/2025 13:47:23 03/26/20 25 Peripheral Neurostimulator Analysis completed LONDON SHARPE APRN [address] [place], [address], [facility] 03/27/2025 08:05:50 03/06/20 25 implantation of sacral nerve stimulator completed CLIFTON REYNOSO MD [address] [place], [address], [facility] 03/06/2025 17:19:48 02/11/20 25 PNE Implantation; Sacral Nerve completed LONDON SHARPE APRN [address] [place], [address], [facility] 02/10/2025 13:01:02 01/09/20 25 Post Void Residual; Ultrasound completed [facility] 01/08/2025 09:59:46 12/14/19 23 operative procedure on foot completed [facility] 01/08/2025 09:59:01 02/13/20 15 hernia repair completed [facility] 01/08/2025 09:58:51 01/13/20 13 Total Hysterectomy completed [facility] 01/08/2025 09:58:14 Imaging Results None recorded. Procedure Notes None recorded. Medical Equipment None Reported. Allergies Allergen ID Allergen Name Allergen Category Reaction Reaction Severity Criticality Documentation Date Start Date Code Code System Note Provider Name and Address Organization Details Recorded Time 805132 Product containin g penicilli n (product) medicatio n Not available Not available Not available 07/08/20162009 15725 8001 SNOMED Comme nt: Creat ed By: Kiko melgar Date: 010 12:55 :14 PM; Not Available [facility] 6 03:12:55 666126 latex environme nt,medica tion Not available Not available Not available 07/08/20162009 41493 91 RxNorm Comme nt: Creat ed By: Kiko melgar Date: 010 12:55 :28 PM; Not Available [facility] 6 09:50:56 Medications Name Sig Start [...] Updated DateTime 05/19/2025 175.26 cm Tania White [facility] 1 13:47:08 Social History Question [...] ICD10 Code Diagnosis IMO Codes Diagnosis Note [id number] LONDON SHARPE APRN UROLOGY [facility] [address] [facility] [address] 05/19/2025 13:36:37 05/19/2025 14:13:43 Overactive urinary bladder 407876180 N32.81 713112 Mixed urin leora incontinence 373760563 N39.46 203628 Constipation 97148693 K5 9.00 Irritable bowel syndrome 80534250 K58.9 Health Concerns Section Related Observation LastModified by Organization Detai ls LastModified Time None Recorded Concern Status LastModified by Organization Details LastModified Time None Recorded Payers Encounter Date Sequence Insurance Name Policy Number Policy Sanchez Covered Member ID Sanchez Member ID Guarantor Name 05/19/2025 1 [place] [id number] Emeli Laguerre [id number] Emeli Laguerre Notes Date Note Type [...] volume of water she drinks. LONDON SHARPE, FREIGHT INSPECTOR [address] [place], [address], [facility] 05/19/2025 14:42:13 OBGyn Episode No OBEpisode recorded.
--- OUTSIDE RECORDS SUMMARY | 2025-06-19 15:37 | XMS_ITS | Data Portability ---
Author Organization [facility] Jonnie arrington, S [facility] CLOSED Address [address] [facility] [address] [facility] [address] [place] [address] Assessment Encounter Date Assessment Date Assessment LastModified [...] Adjustments made today. Follow-up in 2 months. shay Not available 03/27/2025 08:07:55 05/19/2025 05/19/2025 59-year-old [...] Appointments RECHECK 2025 10:45A M LONDON SHARPE DEBLOCKER Not available Not available Not available Lab urinalys is panel, auto 2024 025 evickers Cu/Lc Urology [facility], [facility] [facility], [place], [address], 05/19/2025 14:41:41 urinalys is panel, auto 2024 025 evickers Cu/Lc Urology [facility], [address] [place] [address], [place], [address], 03/27/2025 08:07:56 urinalys is panel, auto 2024 025 evickers Cu/Lc Urology [facility], [address] [place] [address], [place], [address], 02/10/2025 14:36:29 Referral None recorded . Procedures None recorded . Surgeries None recorded . Imaging None recorded . Medication Orders clindamy jr HCl 300 mg capsule 2024 025 [id number], [address] [facility], [place], [place], [id number], 03/16/2025 05:02:22 Patient TargetsNo targets recorded. Patient InstructionsNo instructions recorded. Reason for Referral None Reported. Results Created Date Observation Date Name Description Value Unit Range Abnormal Flag Note LastModifiedBy Organization Detail LastModifiedTime 02/06/2002/05/2025 urina lysis panel , auto Unknown Analyte Clean Catch Not Available Cu/Lc Urolo gy [facility] [address] [facility], [place], [address], 02/05/2025 14:16:21 02/06/20 25 02/05/2025 urina lysis panel , auto Unknown Analyte Yellow Not Available [facility] [address] [facility], [place], [address], 02/05/2025 14:16:21 02/06/20 25 02/05/2025 urina lysis panel , auto Unknown Analyte Clear Not Available Cu/Lc Urology [facility] [address] [facility], [place], [address], 02/05/2025 14:16:21 02/06/2002/05/2025 urina lysis panel , auto Unknown Analyte 1.015 Not Available Cu/Lc Urology [facility] [address] [facility], [place], [address], 02/05/2025 14:16:21 02/06/20 25 02/05/2025 urina lysis panel , auto Unknown Analyte 5.0 Not Available Cu/Lc Urology [facility] [address] [facility], [place], [address], 02/05/2025 14:16:21 02/06/20 25 02/05/2025 urina lysis panel , auto Unknown Analyte Negati ve Not Available Cu/Lc Urolo gy [facility] [address] [facility], [place], [address], 02/05/2025 14:16:21 02/06/20 25 02/05/2025 urina lysis panel , auto Unknown Analyte Negati ve Not Available Cu/Lc Urolo gy [facility] [address] [facility], [place], [address], 02/05/2025 14:16:21 02/06/20 25 02/05/2025 urina lysis panel , auto Unknown Analyte Negati ve Not Available Cu/Lc Urolo [address] [facility], [place], [address], 02/05/2025 14:16:21 02/06/20 25 02/05/2025 urina lysis panel , auto Unknown Analyte Normal Not Available [facility] [address] [facility], [place], [address], 02/05/2025 14:16:21 02/06/20 25 02/05/2025 urina lysis panel , auto Unknown Analyte Negati ve Not Available Cu/Lc Urol[facility] [address] [facility], [place], [address], 02/05/2025 14:16:21 02/06/20 25 02/05/2025 urina lysis panel , auto Unknown Analyte Normal Not Available [facility] [address] [facility], [place], [address], 02/05/2025 14:16:21 02/06/20 25 02/05/2025 urina lysis panel , auto Unknown Analyte Negati ve Not Available Cu/Lc Urol[facility] [address] [facility], [place], [address], 02/05/2025 14:16:21 02/06/20 25 02/05/2025 urina lysis panel , auto Unknown Analyte Negati ve Not Available Cu/Lc Urol[facility] [address] [facility], [place], [address], 02/05/2025 14:16:21 02/11/20 25 02/10/2025 urina lysis panel , auto Unknown Analyte Clean Catch Not Available Cu/Lc Urol[facility] [address] [facility], [place], [address], 02/10/2025 13:00:20 02/11/20 25 02/10/2025 urina lysis panel , auto Unknown Analyte Yellow Not Available Cu/Lc Urology [facility] [address] [facility], [place], [address], 02/10/2025 13:00:20 02/11/20 25 02/10/2025 urina lysis panel , auto Unknown Analyte Clear Not Available [facility] [address] [facility], [place], [address], 02/10/2025 13:00:20 02/11/20 25 02/10/2025 urina lysis panel , auto Unknown Analyte 1.025 Not Available [facility] [address] [facility], [place], [address], 02/10/2025 13:00:20 02/11/20 25 02/10/2025 urina lysis panel , auto Unknown Analyte 5.0 Not Available Cu/Lc Urology [facility] [address] [facility], [place], [address], 02/10/2025 13:00:20 02/11/20 25 02/10/2025 urina lysis panel , auto Unknown Analyte Negati ve Not Available Cu/Lc Urol[facility] [address] [facility], [place], [address], 02/10/2025 13:00:20 02/11/20 25 02/10/2025 urina lysis panel , auto Unknown Analyte Negati ve Not Available Cu/Lc Urol[facility] [address] [facility], [place], [address], 02/10/2025 13:00:20 02/11/20 25 02/10/2025 urina lysis panel , auto Unknown Analyte Negati ve Not Available Cu/Lc Urolo [facility] [address] [facility], [place], [address], 02/10/2025 13:00:20 02/11/20 25 02/10/2025 urina lysis panel , auto Unknown Analyte Normal Not Available [facility] [address] [facility], [place], [address], 02/10/2025 13:00:20 02/11/20 25 02/10/2025 urina lysis panel , auto Unknown Analyte Negati ve Not Available Cu/Lc Urol[facility] [address] [facility], [place], [address], 02/10/2025 13:00:20 02/11/20 25 02/10/2025 urina lysis panel , auto Unknown Analyte Normal Not Available [facility] [address] [facility], [place], [address], 02/10/2025 13:00:20 02/11/20 25 02/10/2025 urina lysis panel , auto Unknown Analyte Negati ve Not Available Cu/Lc Urol[facility] [address] [facility], [place], [address], 02/10/2025 13:00:20 02/11/20 25 02/10/2025 urina lysis panel , auto Unknown Analyte Negati ve Not Available Cu/Lc Urolo [facility] [address] [facility], [place], [address], 02/10/2025 13:00:20 03/06/20 25 03/06/2025 urina lysis panel , auto Unknown Analyte Clean Catch Not Available [facility] Surgery Schedule [address] [place], [address], 03/06/2025 15:10:44 03/06/20 25 03/06/2025 urina lysis panel , auto Unknown Analyte Yellow Not Available [facility] Surgery Schedule [address] [place], [address], 03/06/2025 15:10:44 03/06/20 25 03/06/2025 urina lysis panel , auto Unknown Analyte Clear Not Available [facility] Surgery Schedule [address] [place], [address], 03/06/2025 15:10:44 03/06/20 25 03/06/2025 urina lysis panel , auto Unknown Analyte 1.010 Not Available [facility] Surgery Schedule [address] [place], [address], 03/06/2025 15:10:44 03/06/20 25 03/06/2025 urina lysis panel , auto Unknown Analyte 1.003 - 1.030 Not Available [facility] Surgery Schedule [address] [place], [address], 03/06/2025 15:10:44 03/06/20 25 03/06/2025 urina lysis panel , auto Unknown Analyte 8.0 Not Available [facility] Surgery Schedule [address] [place], [address], 03/06/2025 15:10:44 03/06/20 25 03/06/2025 urina lysis panel , auto Unknown Analyte 5.0 - 8.0 Not Available [facility] Surgery Schedule [address] [place], [address], 03/06/2025 15:10:44 03/06/20 25 03/06/2025 urina lysis panel , auto Unknown Analyte 25 Miguel/uL Not Available [facility] Surgery Schedule [address] [place], [address], 03/06/2025 15:10:44 03/06/20 25 03/06/2025 urina lysis panel , auto Unknown Analyte Negati ve Not Available [facility] Surgery Schedule [address] [place], [address], 03/06/2025 15:10:44 03/06/20 25 03/06/2025 urina lysis panel , auto Unknown Analyte Negati ve Not Available [facility] Surgery Schedule [address] [place], [address], 03/06/2025 15:10:44 03/06/20 25 03/06/2025 urina lysis panel , auto Unknown Analyte Negati ve Not Available [facility] Surgery Schedule [address] [place], [address], 03/06/2025 15:10:44 03/06/20 25 03/06/2025 urina lysis panel , auto Unknown Analyte Negati ve Not Available [facility] Surgery Schedule [address] [place], [address], 03/06/2025 15:10:44 03/06/20 25 03/06/2025 urina lysis panel , auto Unknown Analyte Negati ve Not Available [facility] Surgery Schedule [address] [place], [address], 03/06/2025 15:10:44 03/06/20 25 03/06/2025 urina lysis panel , auto Unknown Analyte Normal Not Available [facility] Surgery Schedule [address] [place], [address], 03/06/2025 15:10:44 03/06/20 25 03/06/2025 urina lysis panel , auto Unknown Analyte Normal Not Available [facility] Surgery Schedule [address] [place], [address], 03/06/2025 15:10:44 03/06/20 25 03/06/2025 urina lysis panel , auto Unknown Analyte Negati ve Not Available [facility] Surgery Schedule [address] [place], [address], 03/06/2025 15:10:44 03/06/20 25 03/06/2025 urina lysis panel , auto Unknown Analyte Negati ve Not Available [facility] Surgery Schedule [address] [place], [address], 03/06/2025 15:10:44 03/06/20 25 03/06/2025 urina lysis panel , auto Unknown Analyte Normal Not Available [facility] Surgery Schedule [address] [place], [address], 03/06/2025 15:10:44 03/06/20 25 03/06/2025 urina lysis panel , auto Unknown Analyte Normal Not Available [facility] Surgery Schedule [address] [place], [address], 03/06/2025 15:10:44 03/06/20 25 03/06/2025 urina lysis panel , auto Unknown Analyte Negati ve Not Available [facility] Surgery Schedule [address] [place], [address], 03/06/2025 15:10:44 03/06/20 25 03/06/2025 urina lysis panel , auto Unknown Analyte Negati ve Not Available [facility] Surgery Schedule [address] [place], [address], 03/06/2025 15:10:44 03/06/20 25 03/06/2025 urina lysis panel , auto Unknown Analyte Negati ve Not Available [facility] Surgery Schedule [address] [place], [address], 03/06/2025 15:10:44 03/06/20 25 03/06/2025 urina lysis panel , auto Unknown Analyte Negati ve Not Available [facility] Surgery Schedule [address] [place], [address], 03/06/2025 15:10:44 03/26/20 25 03/26/2025 urina lysis panel , auto Unknown Analyte Clean Catch Not Available [facility]Lc [facility] [address] [place], [address], 03/26/2025 14:17:40 03/26/20 25 03/26/2025 urina lysis panel , auto Unknown Analyte Yellow Not Available [facility] [address] [place], [address], 03/26/2025 14:17:40 03/26/20 25 03/26/2025 urina lysis panel , auto Unknown Analyte Clear Not Available [facility] [address] [facility], [place], [address], 03/26/2025 14:17:40 03/26/20 25 03/26/2025 urina lysis panel , auto Unknown Analyte 1.005 Not Available [facility] [address] [facility], [place], [address], 03/26/2025 14:17:40 03/26/20 25 03/26/2025 urina lysis panel , auto Unknown Analyte 7.0 Not Available [facility] [address] [facility], [place], [address], 03/26/2025 14:17:40 03/26/20 25 03/26/2025 urina lysis panel , auto Unknown Analyte 25 Miguel/uL Not Available Cu/Lc Urol[facility] [address] [facility], [place], [address], 03/26/2025 14:17:40 03/26/2003/26/2025 urina lysis panel , auto Unknown Analyte Negati ve Not Available Cu/Lc Urol[facility] [address] [facility], [place], [address], 03/26/2025 14:17:40 03/26/2003/26/2025 urina lysis panel , auto Unknown Analyte Negati ve Not Available Cu/Lc Urol[facility] [address] [facility], [place], [address], 03/26/2025 14:17:40 03/26/20 25 03/26/2025 urina lysis panel , auto Unknown Analyte Normal Not Available [facility] [address] [place], [address], 03/26/2025 14:17:40 03/26/20 25 03/26/2025 urina lysis panel , auto Unknown Analyte Negati ve Not Available [facility]Lc Urol[facility] [address] [facility], [place], [address], 03/26/2025 14:17:40 03/26/20 25 03/26/2025 urina lysis panel , auto Unknown Analyte Normal Not Available [facility] [address] [facility], [place], [address], 03/26/2025 14:17:40 03/26/20 25 03/26/2025 urina lysis panel , auto Unknown Analyte Negati ve Not Available Cu[facility]Lc Urol[facility] [address] [facility], [place], [address], 03/26/2025 14:17:40 03/26/20 25 03/26/2025 urina lysis panel , auto Unknown Analyte Negati ve Not Available Cu[facility]Lc Urol[facility] [address] [facility], [place], [address], 03/26/2025 14:17:40 05/19/2005/19/2025 urina lysis panel , auto Unknown Analyte Clean Catch Not Available [facility]Lc Urol[facility] [address] [facility], [place], [address], 05/19/2025 13:47:32 05/19/2005/19/2025 urina lysis panel , auto Unknown Analyte Yellow Not Available [facility] [address] [facility], [place], [address], 05/19/2025 13:47:32 05/19/20 25 05/19/2025 urina lysis panel , auto Unknown Analyte Clear Not Available [facility] [address] [facility], [place], [address], 05/19/2025 13:47:32 05/19/2005/19/2025 urina lysis panel , auto Unknown Analyte 1.015 Not Available [facility] [address] [facility], [place], [address], 05/19/2025 13:47:32 05/19/2005/19/2025 urina lysis panel , auto Unknown Analyte 5.0 Not Available [facility] [address] [facility], [place], [address], 05/19/2025 13:47:32 05/19/2005/19/2025 urina lysis panel , auto Unknown Analyte Negati ve Not Available [facility]Lc [facility]rol[facility] [address] [facility], [place], [address], 05/19/2025 13:47:32 05/19/2005/19/2025 urina lysis panel , auto Unknown Analyte Negati ve Not Available Cu[facility]Lc Urol[facility] [address] [facility], [place], [address], 05/19/2025 13:47:32 05/19/2005/19/2025 urina lysis panel , auto Unknown Analyte Negati ve Not Available Cu[facility]Lc Urol[facility] [address] [facility], [place], [address], 05/19/2025 13:47:32 05/19/2005/19/2025 urina lysis panel , auto Unknown Analyte Normal Not Available [facility] [address] [facility], [place], [address], 05/19/2025 13:47:32 05/19/2005/19/2025 urina lysis panel , auto Unknown Analyte Negati ve Not Available [facility]rol[facility] [address] [facility], [place], [address], 05/19/2025 13:47:32 05/19/2005/19/2025 urina lysis panel , auto Unknown Analyte Normal Not Available [facility] [address] [facility], [place], [address], 05/19/2025 13:47:32 05/19/20 25 05/19/2025 urina lysis panel , auto Unknown Analyte Negati ve Not Available [facility]rol[facility] [address] [facility], [place], [address], 05/19/2025 13:47:32 05/19/2005/19/2025 urina lysis panel , auto Unknown Analyte Negati ve Not Available Cu/Lc Urol[facility] [address] [facility], [place], [address], 05/19/2025 13:47:32 Result Notes None recorded. Procedures Surgical History Date Name Laterality Status Provider Name and Address Organization Details Recorded Time 05/19/20 25 Post Void Residual; Ultrasound completed [facility] 05/19/2025 13:47:23 03/26/20 Peripheral Neurostimulator Analysis completed LONDON SHARPE APRN [address] [place], [address], [facility] 03/27/2025 08:05:50 03/06/20 25 implantation of sacral nerve stimulator completed ROGERIO REYNOSO MD [address] [place], [address], [facility] 03/06/2025 17:19:48 02/11/20 25 PNE Implantation; Sacral Nerve completed LONDON SHARPE APRN [address] [place], [address], [facility] 02/10/2025 13:01:02 01/09/20 25 Post Void Residual; Ultrasound completed [facility] 01/08/2025 09:59:46 12/14/19 23 operative procedure on foot completed [facility] 01/08/2025 09:59:01 02/13/20 15 hernia repair completed [facility] 01/08/2025 09:58:51 01/13/20 13 Total Hysterectomy completed [facility] 01/08/2025 09:58:14 Imaging Results None recorded. Procedure Notes None recorded. Medical Equipment None Reported. Allergies Allergen ID Allergen Name Allergen Category Reaction Reaction Severity Criticality Documentation Date Start Date Code Code System Note Provider Name and Address Organization Details Recorded Time 449357 Product containin g penicilli n (product) medicatio n Not available Not available Not available 07/08/20162009 34078 8001 SNOMED Comme nt: Creat ed By: Kiko Logan talia Date: 12:55 :14 PM; Not Available [facility] 6 03:12:55 152125 latex environme nt,medica tion Not available Not available Not available 07/08/20162009 07999 91 RxNorm Comme nt: Creat ed By: Kiko Logan talia Date: 12:55 :28 PM; Not Available [facility] 6 09:50:56 Medications Name Sig Start Date [...] Available Not Available No t Available prucalopr vasly 2 mg tablet Take 1 tablet every [...] Updated DateTime 02/10/2025 175.26 cm 30.7 kg/m2 55657.21 g [facility] 02/10/2025 13:40:09 Date Recorded Body height Provider Name an d Address Organization Details Last Updated DateTime 02/17/2025 175.26 cm [facility] 0 02/17/2025 09:18:27 Date Recorded Body height Body mass index (BMI) Body weight Provider Name and Address Organization Details Last Updated DateTime 03/26/2025 175.26 cm 30.7 kg/m2 37436.21 g Yuliet Arriola [facility] 03/26/2025 14:17:20 Date Recorded Body height Provider Name an d Address Organization Details Last Updated DateTime 05/19/2025 175.26 cm Tania White [facility] 1 13:47:08 Social History Question Answer Notes [...] ICD10 Code Diagnosis IMO Codes Diagnosis Note [id number] LONDON SHARPE APRN UROLOGY [facility] [address] [place] [address] 01/08/2025 09:22:17 01/08/2025 11:43:58 Overactive urinary bladder 175779662 N32.81 [id number] Begin treatment with Gemtesa to address overactive bladder symptoms, aiming to avoid constipati on. Consider bladder Botox or InterStim if needed. Patient understand s the treatment plan. Mixed urin leora incontinence 474528942 N39.46 928246 Advise pelvic floor exercises, with surgical options as a secondary considerat ion. Patient agrees to try medical management initially. Constipation 82428852 K5 9.00 Maintain current medication regimen and evaluate for InterStim therapy if necessary for symptom control. Patient aware of potential benefits. Irritable bowel syndrome 52813875 K58.9 Continue with current treatment, exploring InterStim as a potential adjunct. Patient informed of therapeuti alix ramirez ies. [id number] OLNDON SHARPE APRN UROLOGY [facility] [address] [place] [address] 02/05/2025 14:08:08 02/05/2025 14:51:42 Overactive urinary bladder 559551502 N32.81 841904 Mixed urin leora incontinence 271541902 N39.46 055176 Constipation 40972132 K5 9.00 Irritable bowel syndrome 44838012 K58.9 [id number] LONDON SHARPE APRN UROLOGOnur [facility] [address] [place] [address] 02/10/2025 13:34:24 02/10/2025 14:40:12 Overactive urinary bladder 220588317 N32.81 625113 Mixed urin leora incontinence 660984176 N39.46 415245 Constipation 14072213 K5 9.00 Irritable bowel syndrome 79414969 K58.9 [id number] LONDON SHARPE APRN UROLOGY [facility] [address] [place] [address] 02/17/2025 09:05:43 02/24/2025 08:31:33 Overactive urinary bladder 326889519 N32.81 100887 Mixed urin leora incontinence 645715761 N39.46 225289 Constipation 08252980 K5 9.00 Irritable bowel syndrome 20773488 K58.9 [id number] ROGERIO REYNOSO MD SURGERY SCHEDULE [address] [place] [address] 03/06/2025 14:06:35 03/06/2025 14:07:01 Overactive urinary bladder 354242850 N32.81 928289 [id number] LONDON SHARPE APRN UROLOGY [facility] [address] [place] [address] 03/26/2025 14:09:31 03/26/2025 14:43:32 Overactive urinary bladder 082682221 N32.81 530782 Mixed urin leora incontinence 149517573 N39.46 359931 Constipation 15761989 K5 9.00 Irritable bowel syndrome 07812297 K58.9 [id number] LONDON SHARPE APRN UROLOGOnur [facility] [address] [place] [address] 05/19/2025 13:36:37 05/19/2025 14:13:43 Overactive urinary bladder 798840222 N32.81 461131 Mixed urin leora incontinence 140508044 N39.46 944087 Constipation 43237193 K5 9.00 Irritable bowel syndrome 74140159 K58.9 Health Concerns Section Related Observation LastModified by Organization Detai ls LastModified Time None Recorded Concern Status LastModified by Organization Details LastModified Time None Recorded Advance Directives Directive None Recorded Payers Insurance Date Sequence Insurance Name Policy Number Policy Sanchez Covered Member ID Sanchez Member ID Guarantor Name 05/16/2025 1 [place] [id number] Emeli Arrington Laguerre [id number] Emeli Arrington Laguerre 05/14/2025 PAYMENT MAKI Laguerre Notes Date Note Type Note Provider Name and Address Organization Details Recorded Time 02/10/2025 text/html She returns today for bilateral PNE. She has overactive baldder and mixed urinary incontinence. She also has IBS and chronic constipation. LONDON SHARPE, MARLEY [address] [place], [address], [facility] 02/10/2025 14:36:31 02/17/2025 text/html 59-year-old female presenting [...] with implant. LONDON SHARPE, MARLEY [address] [place], [address], [facility] 02/18/2025 13:18:44 03/26/2025 text/html 59-year-old female presenting [...] nocturia recently whcih is bothersome. LONDON SHARPE, KINESEOLOGIST [address] [place], [address], [facility] [facility] 03/27/2025 08:08:12 05/19/2025 text/html 59-year-old female presenting [...] volume of water she drinks. LONDON SHARPE, KINESEOLOGIST [address], [place], [id number], [facility] 05/19/2025 14:42:13 OBGyn Episode No OBEpisode recorded.
--- NOTE | 2025-06-19 16:00 | MM_ITS ---
PROCEDURE INFORMATION: Exam: MG Bilateral Screening 3D Mammography Exam date and time: 06/19/2025 3:51 PM Age: 59 years old Clinical indication: Screening examination TECHNIQUE: Imaging protocol: Bilateral Screening tomosynthesis and 2D mammography including computer-aided detection (CAD) when performed. COMPARISON: 1. MG MM DIG SCREENING MAMM BI W/CAD 06/06/2024 3:41 PM 2. MG MM DIG SCREENING MAMM BI W/CAD 06/05/2023 3:50 PM FINDINGS: MAMMOGRAPHY: Breast composition: The breasts are almost entirely fatty. Mass: None. Architectural distortion: None. Calcifications: No suspicious calcifications. Asymmetric density: None. Skin thickening: None. Axillary adenopathy: None. IMPRESSION: No mammographic evidence of malignancy. Annual screening is recommended unless otherwise clinically indicated. ASSESSMENT: BI-RADS Category 1: Negative.
== END 2025-06-19 23:59 | disposition home or self-care (01) ==
LOC: RAD 15:35
PROVIDERS: PCP Internal Medicine; Visit Provider Nurse Practitioner Obstetrics & Gynecology
DX: Z12.31 Encounter for screening mammogram for malignant neoplasm of breast (principal)
CPT/HCPCS: 77063; 77067